=== PATIENT | female | born 1995 | race African-American/Black ===

== ENCOUNTER 2024-06-28 10:09 | Emergency (ER) | payer MEDICAID, SELFPAY ==
--- OUTSIDE RECORDS SUMMARY | 2024-06-28 10:11 | XMS_ITS | Encounter Summary ---
Author Organization [employer] Address [address] [place] [id number] Care Team Providers Care Cheese Blender Name Role Phone No Primary/Referring, Phy Primary Care Provider Unavailable Reason for Visit * Auth/Cert (Routine) Specialty Diagnoses / Procedures Referred By Contac t Referred To Contact Diagnoses Abdominal pain, left lower quadrant Hypertension, unspecified type (HRC) Preeclampsia in period Abdominal pain, left lower quadrant Hypertension, unspecified type (HRC) Preeclampsia in period Referral ID Status Reason Start Date Expiration Date Visits Re quested Visits Authorized [id number] 1 1 Encounter Details Date Type Department Care Team (Late st Contact Info) Description 05/18/2024 4:30 PM MARKETING SALES MANAGER Ancillary Procedure [address] [id number] Social History Tobacco Use Types Packs/Day Years Used Date Smoking Tobacco: Never Smokeless Tobacco: Never Alcohol Use Standard Drinks/Week Comments Not Currently 0 (1 standard drink = 0.6 oz pur e alcohol) [facility] Utilities Answer Date Recorded In the past 12 months has [facility] [employer], gas, oil, or water [employer] threatened to shut off services in your home? No 05/19/2024 Humiliation, Afraid, Rape, and Kick questionnair e Answer Date Recorded Within the last year, have y ou been afraid of your partner or ex-partner? No 05/18/2024 Within the last year, have y ou been humiliated or emotionally abused in other ways by your partner or ex-partner? No Within the last year, have y ou been kicked, hit, slapped, or otherwise physically hurt by your partner or ex-partner? No 05/18/2024 Within the last year, have y ou been raped or forced to have any kind of sexual activity by your partner or ex-partner? No 05/18/2024 Hunger Vital Sign Answer Date Recorded Within the past 12 months, y ou worried that your food would run out before you got the money to buy more. Never true 05/19/19 25 Within the past 12 months, t he food you bought just didn't last and you didn't have money to get more. Never true 05/19/2024 PRAPARE - Transportation Answer Date Re corded In the past 12 months, has l ack of transportation kept you from medical appointments or from getting medications? No 06/2024 In the past 12 months, has l ack of transportation kept you from meetings, work, or from getting things needed for daily living? No 05/19/2024 Housing Stability Vital Sign Answer Ezekiel e Recorded In the last 12 months, was t here a time when you were not able to pay the mortgage or rent on time? No 05/19/2024 Number of Times Moved in the Last Year Not on fi le 05/19/2024 At any time in the past 12 m [facility], were you homeless or living in a group home (including now)? No 05/19/2024 Depression Answer Date Recor ded Last EPDS Total Score 6 10/02/2023 Last EPDS Self Harm Result 0-->never 10/01 Sex and Gender Information Value Date Recorded Sex Assigned at Not on file Gender Identity Not on file Sexual Orientation Not on file documented as of this encounter Plan of Treatment Scheduled Procedures Name Priority Associated Diagnoses Date/Ti me LAPAROSCOPIC SALPINGECTOMY Sterilization consult documented as of this encounter Procedures Procedure Name Priority Date/Time Associated Diagnosis Comments CT ABD PELVIS WO IV CONT STAT 05/18/2024 4:39 PM MARKETING SALES MANAGER documented in this encounter Results * CT Abd Pelvis WO IV Cont (05/18/2024 4:39 PM MARKETING SALES MANAGER) Anatomical Region Laterality Modality Abdomen, Pelvis Computed Tomogra phy 05/18/2024 4:39 PM MARKETING SALES MANAGER Narrative 05/18/2024 6:28 PM MARKETING SALES MANAGER EXAM: CT ABD PELVIS WO IV CONT LOCATION: [facility] DATE: 05/18/2024 INDICATION: Left lower quadrant abdominal pain, . COMPARISON: None. TECHNIQUE: Helical CT scan of the abdomen and pelvis was performed without IV contrast. Multiplanar reformats were obtained. Dose reduction techniques were used. CONTRAST: None. FINDINGS: LOWER CHEST: Normal. HEPATOBILIARY: Normal. PANCREAS: Normal. SPLEEN: Normal. ADRENAL GLANDS: Normal. KIDNEYS/BLADDER: Ptosis of the right kidney with no urinary calculi or hydronephrosis. BOWEL: Normal. LYMPH NODES: Normal. VASCULATURE: Normal. PELVIC ORGANS: Enlarged uterus with focal hyperdensity in the lower endometrial canal compatible with blood products. MUSCULOSKELETAL: Small focal region of eventration ventral abdominal wall at the umbilicus containing small bowel. Nothing for obstruction. IMPRESSION: 1. Enlarged uterus with small amount of acute blood products in the lower endometrial canal near the cervix. No extrauterine blood in the pelvis. 2. Low lying right kidney. No urinary calculi or hydronephrosis. 3. Focal eventration ventral abdominal wall at the umbilicus containing small bowel loops but nothing for obstruction. Procedure Note Torrey Musa MD - 05/18/2024 EXAM: CT ABD PELVIS WO IV CONT LOCATION: [facility] DATE: 05/18/2024 INDICATION: Left lower quadrant abdominal pain, . COMPARISON: None. TECHNIQUE: Helical CT scan of the abdomen and pelvis was performed withoutIV contrast. Multiplanar reformats were obtained. Dose reductiontechniques were used. CONTRAST: None. FINDINGS: LOWER CHEST: Normal. HEPATOBILIARY: Normal. PANCREAS: Normal. SPLEEN: Normal. ADRENAL GLANDS: Normal. KIDNEYS/BLADDER: Ptosis of the right kidney with no urinary calculi orhydronephrosis. BOWEL: Normal. LYMPH NODES: Normal. VASCULATURE: Normal. PELVIC ORGANS: Enlarged uterus with focal hyperdensity in thelower endometrial canal compatible with blood products. MUSCULOSKELETAL: Small focal region of eventration ventral abdominal wallat the umbilicus containing small bowel. Nothing for obstruction. IMPRESSION: 1. Enlarged uterus with small amount of acute blood productsin the lower endometrial canal near the cervix. No extrauterine blood inthe pelvis. 2. Low lying right kidney. No urinary calculi or hydronephrosis. 3. Focal eventration ventral abdominal wall at the umbilicus containingsmall bowel loops but nothing for obstruction. Sunita Serra PA-C RAD CT documented in this encounter Visit Diagnoses Not on filedocumented in this encounter Care Teams Cheese Blender Relationship Specialty Start Date End Date No Primary/Referring, Phy PCP - General 06/29/23 documented as of this encounter
--- OUTSIDE RECORDS SUMMARY | 2024-06-28 10:11 | XMS_ITS | Encounter Summary ---
Author Organization [facility] Address [address] [place] [address] Care Team Providers Care Web Application Tester Name Role Phone No Primary/Referring, Phy Primary Care Provider Unavailable Reason for Visit * Reason Comments Appointment Encounter Details Date Type Department Care Team ([facility] st Contact Info) Description 06/17/2024 Telephone Obstetrics & Gynecology at [address] [id number] Nova Griffiths MD [address] [place] [id number] Appointment Social History Tobacco Use Types Packs/Day Years Used Date Smoking Tobacco: Never Smokeless Tobacco: Never Alcohol Use Standard Drinks/Week Comments Not Currently 0 (1 standard drink = 0.6 oz pur e alcohol) [facility] Utilities Answer Date Recorded In the past 12 months has [facility] [employer], gas, oil, or water [employer] threatened to shut off services in your [...] any time in the past 12 m [facility], were you homeless or living in a long-term (including now)? No 05/19/2024 Depression Answer Date Recor ded Last EPDS Total Score 6 06/21/2024 Last EPDS Self Harm Result Not on file 06/21 Sex and Gender Information Value Date Recorded Sex Assigned at Not on file Gender Identity Not on file Sexual Orientation Not on file documented as of this encounter Nursing Notes * Janae Hawkins - 06/21/2024 10:41 AM CST Unable to reach pt. OPS sent. TROTYPER APPRENTICE * Janae Hawkins - 06/17/2024 11:29 AM CST Images from the original note were not included. Message left for patient to return my call. TROTYPER APPRENTICE documented in this encounter Plan of Treatment Scheduled Procedures Name Priority Associated Diagnoses Date/Ti me LAPAROSCOPIC SALPINGECTOMY Sterilization consult documented as of this encounter Visit Diagnoses Not on filedocumented in this encounter Care Teams Web Application Tester Relationship Specialty Start Date End Date No Primary/Referring, Phy PCP - General 06/29/23 documented as of this encounter
--- OUTSIDE RECORDS SUMMARY | 2024-06-28 10:11 | XMS_ITS | Clinical Summary ---
[facility] Address [address] [place] [address] Care Team Providers Care Supervisor [employer] Name Role Phone No Primary/Referring, Phy Primary Care Provider Unavailable Source Comments You are receiving this document as you are listed as the primary care provider,follow-up provider, or the patient has been referred to you for consultation.This is in compliance with the Medicare and[facility] EHR Incentive Program,which states Providers who transition their patient to another setting of careor provider of care or refers their patient to another provider of care shouldprovide summary care record for each transition of care or referral. [facility] Active Allergy Reactions Criticality Noted Date Comments Latex Rash 07/28/2023 Medications Medication Sig Dispensed Refills Start Date End Date Status MV & Min w/FA-DHA ( GUMMIES OR) Active ferrous sulfate 325 (65 Fe) MG tablet Take 1 Tablet (325 mg) by mouth every other day. Do not take at the same time as taking vitamin. 60 Tablet 1 01/25/2024 Active hydrOXYzine HCl (ATARAX) 25 MG tablet Take 1 Tablet (25 mg) by mouth three times a day as needed for Itching, Anxiety, Pain or sleep. 60 Tablet 04/23/2024 Active sennosides-docusate sodium (SENOKOT S) 8.6-50 MG per tablet Take 1 Tablet by mouth daily. 100 Tablet 05/13/2024 Active acetaminophen (TYLENOL) 325 MG tablet Take 2 Tablets (650 mg) by mouth every 6 hours as needed for Pain. Maximum daily dose of 4000mg acetaminophen. 40 Tablet 05/13/2024 Active ibuprofen (MOTRIN) 600 MG tablet Take 1 Tablet (600 mg) by mouth every 6 hours as needed for Pain. 40 Tablet 05/13/2024 Active hydroCHLOROthiazide (ORETIC) 25 MG tablet Take 1 Tablet (25 mg) by mouth daily for 6 days. 6 Tablet 05/21/2024 Active NIFEdipine XL (PROCARDIA XL) 30 MG 24 hour release tablet Take 2 Tablets (60 mg) by mouth daily for 60 days. 120 Tablet 05/21/2024 07/20/2024 Active Active Problems Problem Noted Date Diagnosed Date Pre-eclampsia, 05/19/2024 Gestational hypertension wit hout significant proteinuria, 05/18/2024 Sterilization consult 05/13/2024 , delivered 05/12/2024 Normal labor 05/11/2024 Encounter for triage in patient 024 growth restriction antepartum 05/01/2024 Pelvic pain in 05/01/2024 Gastroenteritis 04/23/2024 uterine contractions 04/23/2024 Poor growth affecting management of mother in third trimester 04/23/2024 Anemia 04/23/2024 Back pain affecting in third trimester 04/15/2024 Yeast vaginitis 01/25/2024 Supervision of other normal , antepartu m 01/21/2024 Increased nuchal translucency space on ult rasound 01/21/2024 History of gestational diabetes 01/21/2024 History of 01/21/2024 Cervical cancer screening 11/27/2023 Overview (11/30/2023): From visit on 10/02/23: History of abnormal pap tests? No. 2023 ASCUS, HPV High Risk Other Than 16/18 28 y.o. Plan: Per Dr Pascual: Recommend pap LAURA is 05/18/24 so at PP visit would be ideal. Iron deficiency anemia 10/02/2023 Encounters Date Type Department Care Team Description 06/17/2024 Telephone Obstetrics & Gynecology at [facility] [id number] [place] [phone] Nova Griffiths MD Appointment 06/09/2024 Telephone [facility] Obstetrics and Gynecology [address] [place] [phone] Summer Cota LSW Follow-up 05/23/2024 [facility] OB Ultrasound [address] [place] [address] Mychart, Generic Provider 05/23/2024 Telephone [facility] [id number] [place] [phone] Nova Griffiths MD Surgery Scheduling 05/18/2024 4:30 PM PUBLIC HEALTH CLINICAL NURSE SPECIALIST Ancillary Procedure [facility] [address] [place] [address] 05/18/2024 4:13 PM PUBLIC HEALTH CLINICAL NURSE SPECIALIST - 05/21/2024 2:32 PM PUBLIC HEALTH CLINICAL NURSE SPECIALIST Hospital Encounter [facility] [address] [place] [phone] Babita Jarquin MD Schick, Alexandra L, MD Gamache, Jeferson Gerber MD Preeclampsia in period (Primary Dx); Abdominal pain, left lower quadrant; Hypertension, unspecified type (HRC) Discharge Disposition: Home 05/13/2024 Prep for Surgery [facility]OLOGY IP SERVICE [address] [place] [phone] Justa Jara MD Sterilization consult (Primary Dx) 05/11/2024 6:05 AM PUBLIC HEALTH CLINICAL NURSE SPECIALIST - 05/13/2024 2:30 PM PUBLIC HEALTH CLINICAL NURSE SPECIALIST Hospital Encounter [facility] [address] [place] [phone] Nova Griffiths MD , delivered (Primary Dx) Discharge Disposition: Home 05/09/2024 Telephone [facility] Obstetrics and Gynecology [address] [place] [phone] Nadine Griffiths, DIGITAL PROJECT MANAGER, CNM Scheduled Induction 05/06/2024 11:33 PM PUBLIC HEALTH CLINICAL NURSE SPECIALIST - 05/07/2024 1:38 AM PUBLIC HEALTH CLINICAL NURSE SPECIALIST Hospital Encounter [facility] OB Triage [address] [place] [phone] Renita Aranda MD Discharge Disposition: Home 04/30/2024 8:55 PM PUBLIC HEALTH CLINICAL NURSE SPECIALIST - 05/01/2024 12:01 AM PUBLIC HEALTH CLINICAL NURSE SPECIALIST Hospital Encounter [facility] OB Triage [address] [place] [phone] Daniella Gifford MD Back pain affecting in third trimester (Primary Dx) Discharge Disposition: Home 04/29/2024 Nurse Triage [facility] [address] [place], [place] [address] [address] Unassigned, Provider PELVIC PAIN; Concerns 04/22/2024 9:57 PM PUBLIC HEALTH CLINICAL NURSE SPECIALIST - 04/23/2024 2:51 AM PUBLIC HEALTH CLINICAL NURSE SPECIALIST Hospital Encounter [facility] OB Triage [address] [place] [address] Renita Aranda MD Das, Kamalini, MD Discharge Disposition: Home 04/15/2024 12:36 PM PUBLIC HEALTH CLINICAL NURSE SPECIALIST - 04/15/2024 4:25 PM PUBLIC HEALTH CLINICAL NURSE SPECIALIST Hospital Encounter [facility] OB Triage [address] [place] [address] Leticia Aguilera MD Back pain in (Primary Dx) Discharge Disposition: Home 04/13/2024 Telephone [facility] Obstetrics and Gynecology [address] [place] [phone] Summer Cota LSW [facility] Attempted Call 04/08/2024 1:30 PM PUBLIC HEALTH CLINICAL NURSE SPECIALIST Lab Visit [facility] [address] [place] [phone] Supervision of high risk in third trimester 04/08/2024 11:20 AM PUBLIC HEALTH CLINICAL NURSE SPECIALIST Routine [facility] Obstetrics and Gynecology [address] [place] [phone] Nadine Griffiths APRN, CNM SUBSEQUENT VISIT 04/08/2024 10:45 AM PUBLIC HEALTH CLINICAL NURSE SPECIALIST Routine [facility] Maternal Medicine [address] [place] [phone] Nurse, Juancho Calderon 3 NST,(NON STRESS TEST) 04/08/2024 10:30 AM PUBLIC HEALTH CLINICAL NURSE SPECIALIST Office Visit [facility] Maternal Medicine [address] [place] [phone] Leticia Zuniga MD affected by growth restriction (Primary Dx); Increased nuchal translucency space on ultrasound 04/08/2024 10:00 AM PUBLIC HEALTH CLINICAL NURSE SPECIALIST Ancillary Procedure [facility] [address] [place] [address] Leida Garrido MD growth restriction antepartum 04/01/2024 11:30 AM PUBLIC HEALTH CLINICAL NURSE SPECIALIST Routine [facility] Maternal Medicine [address] [place] [address] Nurse, Juancho [facility] 2 04/01/2024 11:15 AM PUBLIC HEALTH CLINICAL NURSE SPECIALIST Office Visit [facility] Maternal Medicine [address] [place] [address] Beatriz Bravo MD affected by growth restriction (Primary Dx) 04/01/2024 11:00 AM PUBLIC HEALTH CLINICAL NURSE SPECIALIST Ancillary Procedure [facility] Maternal Medicine [address] [place] [address] Leida Garrido MD growth restriction antepartum from Last 3 Months Social History Tobacco Use Types Packs/Day Years Used Date Smoking Tobacco: Never Smokeless Tobacco: Never Tobacco Cessation:Counseling Given: Not Answered Alcohol Use Standard Drinks/Week Comments Not Currently 0 (1 standard drink = 0.6 oz pur e alcohol) [facility] Topicmarksities Answer Date Recorded In the past 12 months has [employer], gas, oil, or water [employer] threatened to shut off services in your [...] any time in the past 12 m [facility], were you homeless or living in a penitentiary (including now)? No 05/19/2024 Depression Answer Date Recor ded Last EPDS Total Score 6 06/21/2024 Last EPDS Self Harm Result Not on file 06/21 Sex and Gender Information Value Date Recorded Sex Assigned at Not on file Gender Identity Not on file Sexual Orientation Not on file Last Filed Vital Signs Vital Sign Reading Time Taken Comments Blood Pressure 112/80 05/21/2024 10:50 AM PUBLIC HEALTH CLINICAL NURSE SPECIALIST Pulse 104 05/21/2024 10:50 AM PUBLIC HEALTH CLINICAL NURSE SPECIALIST Temperature 37.4 C (99.3 F) 05/21/2024 8:15 AM PUBLIC HEALTH CLINICAL NURSE SPECIALIST Respiratory Rate 16 05/21/2024 8:15 AM PUBLIC HEALTH CLINICAL NURSE SPECIALIST Oxygen Saturation 100% 05/21/2024 8:15 AM PUBLIC HEALTH CLINICAL NURSE SPECIALIST Inhaled Oxygen Concentration - - Weight 53.3 kg (117 lb 6.4 oz) 05/18/2024 8:33 P M PUBLIC HEALTH CLINICAL NURSE SPECIALIST Height 149.9 cm (4' 11) 05/18/2024 11:34 PM PUBLIC HEALTH CLINICAL NURSE SPECIALIST Body Mass Index 23.71 05/18/2024 8:33 PM PUBLIC HEALTH CLINICAL NURSE SPECIALIST Plan of Treatment Scheduled Procedures Name Priority Associated Diagnoses Date/Ti me LAPAROSCOPIC SALPINGECTOMY Sterilization consult Health Maintenance Due Date Last Done Comments Adult Preventive Visit 2012 DTaP/Tdap/Td (1 - Tdap) 2013 HepB (1) 2013 COVID-19 Vaccine (2023-2 5 season) 2024 Influenza (#1) 2024 Cervical Cancer Screening 10/01/2024 10/02/2023 Zoster/Shingles (1 of 2) 2044 HIV Screening (Preventive Services) Completed 10/02/2023 Hep C Screening (Preventive Services) Completed 10/02/2023 HPV Vaccine Aged Out No longer eligi ble based on patient's age to complete this topic HepA Aged Out No longer eligi ble based on patient's age to complete this topic Hib Aged Out No longer eligi ble based on patient's age to complete this topic IPV (Polio) Aged Out No longer eligi ble based on patient's age to complete this topic MCV4 Aged Out No longer eligi ble based on patient's age to complete this topic Pneumococcal Aged Out No longer eligi ble based on patient's age to complete this topic Procedures Procedure Name Priority Date/Time Associated Diagnosis Comments GLUCOSE, WHOLE BLOOD POCT Routine 05/21/2024 5:15 AM PUBLIC HEALTH CLINICAL NURSE SPECIALIST MAGNESIUM STAT 05/19/2024 1:18 PM PUBLIC HEALTH CLINICAL NURSE [facility]IST CT ABD PELVIS WO IV CONT STAT 05/18/2024 4:39 PM PUBLIC HEALTH CLINICAL NURSE SPECIALIST LIVER PANEL(HEPATIC FUNCTION PANEL) Add-On 05/18/2024 1:49 PM PUBLIC HEALTH CLINICAL NURSE SPECIALIST BASIC METABOLIC PANEL STAT 05/18/2024 1:49 PM PUBLIC HEALTH CLINICAL NURSE SPECIALIST COMPLETE BLOOD COUNT-NO DIFF STAT 05/18/2024 1:49 PM PUBLIC HEALTH CLINICAL NURSE SPECIALIST TP/CREA RATIO, URINE Add-On 05/18/2024 1:37 PM PUBLIC HEALTH CLINICAL NURSE SPECIALIST UA CONDITIONAL UC STAT 05/18/2024 1:3 7 PM PUBLIC HEALTH CLINICAL NURSE SPECIALIST TRANSFUSE RED BLOOD CELL Routine 05/12/2024 12:14 PM PUBLIC HEALTH CLINICAL NURSE SPECIALIST HEMOGLOBIN, BLOOD Routine 05/12/2024 7:4 3 AM PUBLIC HEALTH CLINICAL NURSE SPECIALIST GLUCOSE, WHOLE BLOOD POCT Routine 05/11/2024 9:31 AM PUBLIC HEALTH CLINICAL NURSE SPECIALIST PREP RBC LR Routine 05/11/2024 9:18 AM PUBLIC HEALTH CLINICAL NURSE SPECIALIST SYPHILIS PANEL (WITH REFLEX) STAT 05/11/2024 6:42 AM PUBLIC HEALTH CLINICAL NURSE SPECIALIST SYPHILIS PANEL (WITH REFLEX) STAT 05/11/2024 6:42 AM PUBLIC HEALTH CLINICAL NURSE SPECIALIST ANTIBODY SCREEN STAT 05/11/2024 6:42 AM PUBLIC HEALTH CLINICAL NURSE SPECIALIST BLOOD TYPE STAT 05/11/2024 6:42 AM PUBLIC HEALTH CLINICAL NURSE SPECIALIST COMPLETE BLOOD COUNT-NO DIFF STAT 05/11/2024 6:42 AM PUBLIC HEALTH CLINICAL NURSE SPECIALIST TYPE AND SCREEN STAT 05/11/2024 6:42 AM PUBLIC HEALTH CLINICAL NURSE SPECIALIST POC US OB 2ND/3RD TRIMESTER Routine 05/11/2024 6:25 AM PUBLIC HEALTH CLINICAL NURSE SPECIALIST UA CONDITIONAL UC Routine 04/30/2024 11: 38 PM PUBLIC HEALTH CLINICAL NURSE SPECIALIST CHLAMYDIA & GC (14 YEARS & OLDER) Routine 04/22/2024 11:51 PM PUBLIC HEALTH CLINICAL NURSE SPECIALIST VAGINITIS PANEL STAT 04/22/2024 11:51 PM PUBLIC HEALTH CLINICAL NURSE SPECIALIST GROUP B STREP SCREEN (OB PTS) STAT 04/22/2024 11:21 PM PUBLIC HEALTH CLINICAL NURSE SPECIALIST UA CONDITIONAL UC STAT 04/22/2024 11: 21 PM PUBLIC HEALTH CLINICAL NURSE SPECIALIST UA CONDITIONAL UC STAT 04/15/2024 1:0 4 PM PUBLIC HEALTH CLINICAL NURSE SPECIALIST HEPATITIS B CORE,AB Routine 04/08/2024 1 1:56 AM PUBLIC HEALTH CLINICAL NURSE SPECIALIST Supervision of high risk in third trimester HEPATITIS B SURFACE ANTIBODY Routine 04/08/2024 11:56 AM PUBLIC HEALTH CLINICAL NURSE SPECIALIST Supervision of high risk in third trimester HBSAG (HEPATITIS B SURFACE AG) Routine 04/08/2024 11:56 AM PUBLIC HEALTH CLINICAL NURSE SPECIALIST Supervision of high risk in third trimester SYPHILIS PANEL (WITH REFLEX) Routine 04/08/2024 11:56 AM PUBLIC HEALTH CLINICAL NURSE SPECIALIST Supervision of high risk in third trimester RBC AND PLATELET MORPHOLOGY Routine 04/08/2024 11:56 AM PUBLIC HEALTH CLINICAL NURSE SPECIALIST Supervision of high risk in third trimester SYPHILIS PANEL (WITH REFLEX) Routine 04/08/2024 11:56 AM PUBLIC HEALTH CLINICAL NURSE SPECIALIST Supervision of high risk in third trimester PLATELETS Routine 04/08/2024 11:56 AM PUBLIC HEALTH CLINICAL NURSE SPECIALIST Supervision of high risk in third trimester HEMOGLOBIN, BLOOD Routine 04/08/2024 11: 56 AM PUBLIC HEALTH CLINICAL NURSE SPECIALIST Supervision of high risk in third trimester GLUCOSE Routine 04/08/2024 11:56 AM PUBLIC HEALTH CLINICAL NURSE SPECIALIST Supervision of high risk in third trimester HGB A1C Routine 04/08/2024 11:56 AM PUBLIC HEALTH CLINICAL NURSE SPECIALIST Supervision of high risk in third trimester [facility] US OB FOLLOW-UP GROWTH Routine 04/08/2024 10:35 AM PUBLIC HEALTH CLINICAL NURSE SPECIALIST growth restriction antepartum [facility] US OB BPP Routine 04/01/2024 11:38 AM PUBLIC HEALTH CLINICAL NURSE SPECIALIST growth restriction antepartum PAP TEST Routine 10/02/2023 11:14 AM CDT Screening for malignant neoplasm of cervix HIV 1/2 AG/AB 4TH GEN Routine 10/02/2023 10:29 AM CDT Grand multiparity with current in first trimester HEPATITIS C ANTIBODY, WITH REFLEX Routine 10/02/2023 10:29 AM CDT Grand multiparity with current in first trimester from Last 3 Months or Most Recently Relevant to Health Maintenance Results * Glucose, Whole Blood POCT (05/21/2024 5:15 AM PUBLIC HEALTH CLINICAL NURSE SPECIALIST) Only the most recent of2 resultswithin the time period is included. Glucose, Whole Blood 88 70 - 180 mg/dL 05/21/2024 5:17 AM PUBLIC HEALTH CLINICAL NURSE SPECIALIST [facility] Performing Location RCLab SE2 05/21/2024 5:17 AM PUBLIC HEALTH CLINICAL NURSE SPECIALIST [facility] Blood 05/21/2024 5:15 AM PUBLIC HEALTH CLINICAL NURSE SPECIALIST 05/21/2024 5:17 AM PUBLIC HEALTH CLINICAL NURSE SPECIALIST Jeferson Casiano MD LAB_1 Performing Organization Address [facility] Co de Phone Number [address] * (ABNORMAL) Magnesium (05/19/2024 1:18 PM PUBLIC HEALTH CLINICAL NURSE SPECIALIST) Magnesium 7.4(HH) 1.6 - 2.6 mg/dL 05/19/2024 1:48 PM PUBLIC HEALTH CLINICAL NURSE SPECIALIST [facility] Blood Venipuncture / Unknown 05/19/2024 1:18 PM PUBLIC HEALTH CLINICAL NURSE SPECIALIST 05/19/2024 1:22 PM PUBLIC HEALTH CLINICAL NURSE SPECIALIST Jeferson Casiano MD LAB_1 Performing Organization Address [facility] de Phone Number [address] * CT Abd Pelvis WO IV Cont (05/18/2024 4:39 PM PUBLIC HEALTH CLINICAL NURSE SPECIALIST) Anatomical Region Laterality Modality Abdomen, Pelvis Computed Tomogra phy 05/18/2024 4:39 PM PUBLIC HEALTH CLINICAL NURSE SPECIALIST Narrative 05/18/2024 6:28 PM PUBLIC HEALTH CLINICAL NURSE SPECIALIST EXAM: CT ABD PELVIS WO IV CONT LOCATION: [facility] DATE: 05/18/2024 INDICATION: Left lower quadrant [...] CT ABD PELVIS WO IV CONT LOCATION: [facility] DATE: 05/18/2024 INDICATION: Left lower quadrant [...] for obstruction. Sunita Serra PA-C RAD CT * (ABNORMAL) Liver Panel(Hepatic Function Panel) (05/18/2024 1:49 PM PUBLIC HEALTH CLINICAL NURSE SPECIALIST) Alkaline Phosphatase 114 40 - 150 U/L 05/18/2024 5:22 PM PUBLIC HEALTH CLINICAL NURSE SPECIALIST [facility] Bilirubin, Total 0.5 0.2 - 1.2 mg/dL 05/18/2024 5:22 PM PUBLIC HEALTH CLINICAL NURSE SPECIALIST [facility] Bilirubin, Direct 0.2 0.0 - 0.5 mg/dL 05/18/2024 5:22 PM PUBLIC HEALTH CLINICAL NURSE SPECIALIST [facility] AST (SGOT) 16 10 - 40 U/L 05/18/2024 5:22 PM [facility] ALT (SGPT) 25 <=55 U/L 05/18/2024 5:22 PM [facility] Protein, Total 8.0 6.4 - 8.3 g/dL 05/18/2024 5:22 PM [facility] Albumin 3.0(L) 3.5 - 5.0 g/dL 05/18/2024 5:22 PM [facility] Blood Venipuncture / Unknown 05/18/2024 1:49 PM PUBLIC HEALTH CLINICAL NURSE SPECIALIST 05/18/2024 1:54 PM PUBLIC HEALTH CLINICAL NURSE SPECIALIST Ana Laura Sutton MD LAB_[address] [address], [facility] * Basic Metabolic Panel (05/18/2024 1:49 PM PUBLIC HEALTH CLINICAL NURSE SPECIALIST) Sodium 140 136 - 145 mmol/L 05/18/2024 2:18 PM [facility] Potassium 3.5 3.5 - 5.1 mmol/L 05/18/2024 2:18 PM [facility] Chloride 106 98 - 109 mmol/L 05/18/2024 2:18 PM [facility] CO2 26 20 - 29 mmol/L 05/18/2024 2:18 PM [facility] Anion Gap 8 6 - 16 mmol/L 05/18/2024 2:18 PM [facility] Calcium 8.7 8.4 - 10.4 mg/dL 05/18/2024 2:18 PM [facility] BUN 11 7 - 26 mg/dL 05/18/2024 2:18 PM [facility] Creatinine 0.63 0.55 - 1.02 mg/dL 05/18/2024 2:18 PM [facility] Glucose 78 70 - 100 mg/dL 05/18/2024 2:18 PM [facility] Comment:The given reference range is for the fasting state. Non-fasting reference range for glucose is 70 - 180 mg/dL. GFR, Estimated >60 >60 mL/min/1.7 3m2 05/18/2024 2:18 PM [facility] Blood Venipuncture / Unknown 05/18/2024 1:49 PM PUBLIC HEALTH CLINICAL NURSE SPECIALIST 05/18/2024 1:54 PM PUBLIC HEALTH CLINICAL NURSE SPECIALIST Babita Jarquin MD LAB_1 Performing Organization Address City/[facility]/ZIP Co de Phone Number [address] * (ABNORMAL) Complete Blood Count-No Diff (05/18/2024 1:49 PM PUBLIC HEALTH CLINICAL NURSE SPECIALIST) Only the most recent of2 resultswithin the time period is included. WBC 9.5 3.5 - 10.5 x10(9)/L 05/18/2024 1:59 PM [facility] RBC 4.78 3.90 - 5.03 x10(12)/L 05/18/2024 1:59 PM [facility] Hemoglobin 10.3(L) 12.0 - 15.5 g/dL 05/18/2024 1:59 PM [facility] HCT 34.1(L) 34.9 - 44.5 % 05/18/2024 1:59 PM [facility] MCV 71.3(L) 80.0 - 100.0 fL 05/18/2024 1:59 PM [facility] MCH 21.5(L) 27.6 - 33.3 pg 05/18/2024 1:59 PM [facility] MCHC 30.2(L) 31.5 - 35.2 g/dL 05/18/2024 1:59 PM [facility] RDW 21.8(H) 11.9 - 15.5 % 05/18/2024 1:59 PM [facility] Platelets 232 150 - 450 x10(9)/L 05/18/2024 1:59 PM [facility] Automated NRBC 0 <=0 /100 WBC 05/18/2024 1:59 PM [facility] Blood Venipuncture / Unknown 05/18/2024 1:49 PM PUBLIC HEALTH CLINICAL NURSE SPECIALIST 05/18/2024 1:54 PM PUBLIC HEALTH CLINICAL NURSE SPECIALIST Babita Jarquin MD LAB_[address] * (ABNORMAL) UA Conditional UC: Clean Catch (05/18/2024 1:37 PM PUBLIC HEALTH CLINICAL NURSE SPECIALIST) Only the most recent of4 resultswithin the time period is included. Urine Culture Comment 05/18/2024 2:26 PM [facility] Urine Color Yellow 05/18/2024 2:26 PM [facility] Urine Clarity Clear Clear 05/18/2024 2:26 PM [facility] Specific Clarence, Urine 1.028 <1.030 05/18/2024 2:26 PM [facility] PH Urine 5.5 5.0 - 8.0 05/18/2024 2:26 PM [facility] Protein, Urine Qual (mg/dL) 10 Negative, 10 , 20 05/18/2024 2:26 PM [facility] Glucose Urine Qual (mg/dL) Normal (Negative) Normal (Negative), 30 , 50 05/18/2024 2:26 PM [facility] Ketones, Urine (mg/dL) Negative Negative, Trace 05/18/2024 2:26 PM [facility] Urobilinogen, Urine (EU/dL) Normal (Negative) Normal (Negative) 05/18/2024 2:26 PM [facility] Bilirubin Urine (mg/dL) Negative Negative 05/18/2024 2:26 PM [facility] Blood, Urine (mg/dL) 0.50 (Moderate)(A) Negative, 0.03 (Trace) 05/18/2024 2:26 PM [facility] Nitrite Urine Negative Negative 05/18/2024 2:26 PM [facility] Leukocyte Esterase, Urine (Marcos/uL) Negative Negative, 25 (Trace) 05/18/2024 2:26 PM [facility] Red Blood Cells 25(H) 0 - 3 /HPF 05/18/2024 2:26 PM [facility] White Blood Cells 5 0 - 5 /HPF 05/18/2024 2:26 PM [facility] Squamous Epithelial Cells Occasional None Seen, Occasional, Few /HPF 05/18/2024 2:26 PM [facility] Mucus Present(A) None Seen /HPF 05/18/2024 2:26 PM [facility] Source Clean Catch 05/18/2024 2:26 PM [facility] Urine URINE SPECIMEN COLLECTION, CLEAN CATCH / Unknown Non-blood Collection / Unknown 05/18/2024 1:37 PM PUBLIC HEALTH CLINICAL NURSE SPECIALIST 05/18/2024 1:41 PM PUBLIC HEALTH CLINICAL NURSE SPECIALIST [facility] - 05/18/2024 2:26 PM PUBLIC HEALTH CLINICAL NURSE SPECIALIST The qualitative interpretive guidance provided (e.g., small, moderate, large) is intended to aid in quantitative result interpretation. It is not itself an FDA-cleared test result. Babita Jarquin MD LAB_1 Performing Organization Address [facility] de Phone Number [address] * (ABNORMAL) TP/Crea Ratio, Urine (05/18/2024 1:37 PM PUBLIC HEALTH CLINICAL NURSE SPECIALIST) TP/Creat Ratio, Urine Random 0.08 0.00 - 0.20 05/18/2024 5:35 PM [facility] Total Protein, Urine, Random 16(H) 0 - 14 mg/dL 05/18/2024 5:35 PM [facility] Comment:The overall interpre tation for this test is normal (the ratio is within the reference interval). Individual test components may fall outside the reference interval but still give a normal overall test result. Creatinine, Urine, Random 208 >20 mg/dL mg/dL 05/18/2024 5:35 PM [facility] Urine URINE SPECIMEN COLLECTION, CLEAN CATCH / Unknown Non-blood Collection / Unknown 05/18/2024 1:37 PM PUBLIC HEALTH CLINICAL NURSE SPECIALIST 05/18/2024 1:41 PM PUBLIC HEALTH CLINICAL NURSE SPECIALIST [facility] - 05/18/2024 5:35 PM PUBLIC HEALTH CLINICAL NURSE SPECIALIST Low urine creatinine values coupled with low urine protein values can artifactually increase the urine protein/creatinine results. Correlate results of ratio with creatinine results. Ana Laura Sutton MD LAB_1 Performing Organization Address [facility] Co de Phone Number [address] * Transfuse Red Blood Cell (05/12/2024 2:09 PM PUBLIC HEALTH CLINICAL NURSE SPECIALIST) Danielle Montgomery DIGITAL PROJECT MANAGER, CNM ET NURSING BLO OD ADMIN * (ABNORMAL) Hemoglobin - day 1 (05/12/2024 7:43 AM PUBLIC HEALTH CLINICAL NURSE SPECIALIST) Only the most recent of2 resultswithin the time period is included. Hemoglobin 7.8(L) 12.0 - 15.5 g/dL 05/12/2024 7:58 AM PUBLIC HEALTH CLINICAL NURSE SPECIALIST [facility] Blood Venipuncture / Unknown 05/12/2024 7:43 AM PUBLIC HEALTH CLINICAL NURSE SPECIALIST 05/12/2024 7:51 AM PUBLIC HEALTH CLINICAL NURSE SPECIALIST Nova Griffiths MD LAB_1 Performing Organization Address [facility] Co de Phone Number [address] * Prep RBC: , 2 Units (05/11/2024 9:18 AM PUBLIC HEALTH CLINICAL NURSE SPECIALIST) BLOOD PRODUCT CODE [id number] [facility] BLOOD [facility] BLOOD UNIT NUMBER [id number] [facility] BLOOD [facility] CROSSMATCH INTERPRETATION Compatible [facility] BLOOD DISPENSE STATUS Transfused [facility] BLOOD [facility] Unit Expiration Date [facility] BLOOD [facility] UNIT BT BARCODE [address] [place] [address] BLOOD BANK PRODUCT VOL ML [address] [place] BLOOD B[facility] CODING SYSTEM ISBT [facility] BLOOD BANK PRODUCT RBC LR [facility]OD [facility] Blood 05/11/2024 9:18 AM PUBLIC HEALTH CLINICAL NURSE SPECIALIST Nova Griffiths MD LAB_BLOOD PRODUCTS Performing Organization Address City/[facility] Co de Phone Number [facility]LOOD [facility] [address] * Antibody Screen (05/11/2024 6:42 AM PUBLIC HEALTH CLINICAL NURSE SPECIALIST) Antibody Screen Interpretation Negative 05/11/2024 7:51 AM PUBLIC HEALTH CLINICAL NURSE SPECIALIST [facility]LOOD [facility] Blood Venipuncture / Unknown 05/11/2024 6:42 AM PUBLIC HEALTH CLINICAL NURSE SPECIALIST 05/11/2024 6:53 AM PUBLIC HEALTH CLINICAL NURSE SPECIALIST Nova Griffiths MD LAB_1 Performing Organization Address City/[facility] Co de Phone Number [facility]OD [facility] [address] [place] [address] * Blood Type (05/11/2024 6:42 AM PUBLIC HEALTH CLINICAL NURSE SPECIALIST) ABO B 05/11/2024 7:44 AM PUBLIC HEALTH CLINICAL NURSE SPECIALIST [facility] RH Positive 05/11/2024 7:44 AM PUBLIC HEALTH CLINICAL NURSE SPECIALIST [facility]LOOD [facility] Blood Venipuncture / Unknown 05/11/2024 6:42 AM PUBLIC HEALTH CLINICAL NURSE SPECIALIST 05/11/2024 6:53 AM PUBLIC HEALTH CLINICAL NURSE SPECIALIST Nova Griffiths MD LAB_1 [facility]LOOD [facility] [address] * Syphilis Panel, with Reflex (05/11/2024 6:42 AM PUBLIC HEALTH CLINICAL NURSE SPECIALIST) Only the most recent of2 resultswithin the time period is included. Treponema Screen Interpretation Non Reactive Non Reactive 05/11/2024 3:33 PM PUBLIC HEALTH CLINICAL NURSE SPECIALIST [facility] Syphilis Panel Comment Negative - No serological evidence of syphilis. 05/11/2024 3:33 PM PUBLIC HEALTH CLINICAL NURSE SPECIALIST [facility] Blood Venipuncture / Unknown 05/11/2024 6:42 AM PUBLIC HEALTH CLINICAL NURSE SPECIALIST 05/11/2024 6:53 AM PUBLIC HEALTH CLINICAL NURSE SPECIALIST Nova Griffiths MD LAB_1 Performing Organization Address [facility] Co de Phone Number [facility] [address] [place] [address] * Vaginitis Panel (04/22/2024 11:51 PM PUBLIC HEALTH CLINICAL NURSE SPECIALIST) Pathologist [facility] Bacterial Vaginosis Negative Negative 04/23/2024 1:07 AM PUBLIC HEALTH CLINICAL NURSE SPECIALIST [facility] Shae Species Not Detected Not Detected 04/23 1:07 AM PUBLIC HEALTH CLINICAL NURSE SPECIALIST [facility] Shae glabrata/krusei Not Detected Not Detected 04/23/2024 1:07 AM PUBLIC HEALTH CLINICAL NURSE SPECIALIST [facility] Trichomonas vaginalis Not Detected Not Detected 04/23/2024 1:07 AM PUBLIC HEALTH CLINICAL NURSE SPECIALIST [facility] Swab STD SPECIMEN FROM VAGINA / Unknown Non-blood Collection / Unknown 04/22/2024 11:51 PM PUBLIC HEALTH CLINICAL NURSE SPECIALIST 04/22/2024 11:54 PM PUBLIC HEALTH CLINICAL NURSE SPECIALIST [facility] - 04/23/2024 1:07 AM PUBLIC HEALTH CLINICAL NURSE SPECIALIST Test performed by Real-Time PCR Kailey Wall MD LAB_1 Performing Organization Address City/[facility]/ZIP Co de Phone Number [address] * Chlamydia & GC (14 Years and Older): Vagina (04/22/2024 11:51 PM PUBLIC HEALTH CLINICAL NURSE SPECIALIST) Chlamydia Trachomatis STD Not Detected Not Detected 04/23/2024 4:57 AM PUBLIC HEALTH CLINICAL NURSE SPECIALIST [facility] N. gonorrhoeae STD Not Detected Not Detected 04/23/2024 4:57 AM [facility] Swab STD SPECIMEN FROM VAGINA / Unknown Non-blood Collection / Unknown 04/22/2024 11:51 PM PUBLIC HEALTH CLINICAL NURSE SPECIALIST 04/22/2024 11:54 PM PUBLIC HEALTH CLINICAL NURSE SPECIALIST [facility] - 04/23/2024 4:57 AM PUBLIC HEALTH CLINICAL NURSE SPECIALIST Test performed by Real-Time PCR Kailey Wall MD LAB_1 Performing Organization Address [facility]/ZIP Co de Phone Number [address] * Group B Strep Screen (OB Pts) (04/22/2024 11:21 PM PUBLIC HEALTH CLINICAL NURSE SPECIALIST) Pathologist [facility] Group B Strep Screen No Group B Streptococcus Isolated 04/26/2024 9:56 AM [facility] Swab (Source Required) PERINEAL SWAB / Unknown Non-blood Collection / Unknown 04/22/2024 11:21 PM PUBLIC HEALTH CLINICAL NURSE SPECIALIST 04/22/2024 11:26 PM PUBLIC HEALTH CLINICAL NURSE SPECIALIST Kailey Wall MD LAB_1 Performing Organization Address [facility]/ZIP Co de Phone Number [address] * Morphology-RBC and Platelet (04/08/2024 11:56 AM PUBLIC HEALTH CLINICAL NURSE SPECIALIST) Pathologist [facility] RBC Morphology Reviewed 04/08/2024 12:24 PM PUBLIC HEALTH CLINICAL NURSE SPECIALIST [facility] Platelet Estimate Adequate Adequate 04/08/2024 12:24 PM PUBLIC HEALTH CLINICAL NURSE SPECIALIST [facility] Blood Venipuncture / Unknown 04/08/2024 11:56 AM PUBLIC HEALTH CLINICAL NURSE SPECIALIST 04/08/2024 11:56 AM PUBLIC HEALTH CLINICAL NURSE SPECIALIST Nadine Griffiths APRN, CNM LAB_1 Performing Organization Address City/[facility]/ZIP Co de Phone Number [facility] [address] [place] [phone], [facility] * Hepatitis B Surface Antibody (04/08/2024 11:56 AM PUBLIC HEALTH CLINICAL NURSE SPECIALIST) Hep B Surf Antibody Result 169.8 mIU/mL 04/08/2024 7:22 PM PUBLIC HEALTH CLINICAL NURSE SPECIALIST [facility] Hep B Surf Antibody Interpretation Positive (Reactive) Positive (Reactive) 04/08/2024 7:22 PM PUBLIC HEALTH CLINICAL NURSE SPECIALIST [facility] Comment:Individual is consid ered immune to HBV infection. Blood Venipuncture / Unknown 04/08/2024 11:56 AM PUBLIC HEALTH CLINICAL NURSE SPECIALIST 04/08/2024 11:56 AM PUBLIC HEALTH CLINICAL NURSE SPECIALIST Nadine Griffiths APRN, CNM LAB_1 Performing Organization Address City/[facility]/ZIP Co de Phone Number [facility] [address] [place] [address] * Platelets (04/08/2024 11:56 AM PUBLIC HEALTH CLINICAL NURSE SPECIALIST) Platelets 204 150 - 450 x10(9)/L 04/08/2024 12:24 PM PUBLIC HEALTH CLINICAL NURSE SPECIALIST [facility] Blood Venipuncture / Unknown 04/08/2024 11:56 AM PUBLIC HEALTH CLINICAL NURSE SPECIALIST 04/08/2024 11:56 AM PUBLIC HEALTH CLINICAL NURSE SPECIALIST Nadine Griffiths APRN, CNM LAB_1 Performing Organization Address City/[facility] Co de Phone Number [facility] [address] [place] [phone] * Hepatitis B Surface Antigen (04/08/2024 11:56 AM PUBLIC HEALTH CLINICAL NURSE SPECIALIST) Hepatitis B Surface Antigen Negative (Non Reactive) Negative (Non Reactive) 04/08/2024 7:22 PM PUBLIC HEALTH CLINICAL NURSE SPECIALIST [facility] Blood Venipuncture / Unknown 04/08/2024 11:56 AM PUBLIC HEALTH CLINICAL NURSE SPECIALIST 04/08/2024 11:56 AM PUBLIC HEALTH CLINICAL NURSE SPECIALIST Nadine Griffiths APRN, CNM LAB_1 Performing Organization Address City/[facility] Co de Phone Number [facility] [address] [place] [address] * Hepatitis B Core Antibody (04/08/2024 11:56 AM PUBLIC HEALTH CLINICAL NURSE SPECIALIST) Pathologist [facility] Hepatitis B Core Antibody Negative (Non Reactive) Negative (Non Reactive) 04/08/2024 7:22 PM [facility] Blood Venipuncture / Unknown 04/08/2024 11:56 AM PUBLIC HEALTH CLINICAL NURSE SPECIALIST 04/08/2024 11:56 AM PUBLIC HEALTH CLINICAL NURSE SPECIALIST Nadine Shahrzad Tunde ERNANDEZ CNM LAB_1 Performing Organization Address [facility] de Phone Number [facility] [address] * Hgb A1C (04/08/2024 11:56 AM PUBLIC HEALTH CLINICAL NURSE SPECIALIST) [facility] Hemoglobin A1C 5.6 <=5.6 % 04/08/2024 7:12 PM [facility] Estimated Average Glucose (Calc) 114 < 117 mg/dL 04/08/2024 7:12 PM [facility] Comment:Estimated average gl ucose (eAG) converts A1c into glucose units (mg/dL) and estimates average glucose over the past approximately 3 months. The eAG reference interval (<117 mg/dL) corresponds to an A1c of <5.7%. Blood Venipuncture / Unknown 04/08/2024 11:56 AM PUBLIC HEALTH CLINICAL NURSE SPECIALIST 04/08/2024 11:56 AM PUBLIC HEALTH CLINICAL NURSE SPECIALIST Nadine Griffiths APRN, CNM LAB_1 Performing Organization Address [facility] de Phone Number [facility] [address] * Glucose (04/08/2024 11:56 AM PUBLIC HEALTH CLINICAL NURSE SPECIALIST) [facility] Glucose 72 70 - 100 mg/dL 04/08/2024 6:35 PM [facility] Comment:The given reference range is for the fasting state. Non-fasting reference range for glucose is 70 - 180 mg/dL. Hours Fasting 0.0 8 - 12 Hours 04/08/2024 6:35 PM [facility] Blood Venipuncture / Unknown 04/08/2024 11:56 AM PUBLIC HEALTH CLINICAL NURSE SPECIALIST 04/08/2024 11:56 AM PUBLIC HEALTH CLINICAL NURSE SPECIALIST Nadine Griffiths APRN, CNM LAB_1 [facility] [address] * MFM US OB Follow-Up Growth (04/08/2024 10:35 AM PUBLIC HEALTH CLINICAL NURSE SPECIALIST) Anatomical Region Laterality Modality Pelvis Ultrasound Study GA Study Date Study LAURA Working LAURA (Source) Feta l Weight (Method) 31w5d 04/08/2024 06/05/2024 05/18/2024 (Las t Menstrual Period) 1863 g (Hadlock 1984 (BPD, HC, AC, [place]) )1948 g (Hadlock 1984 (AC, FL) )1894 g (Hadlock 1984 (BPD, AC, FL) )1860 g (Hadlock 1984 (HC, AC, FL) )2055 g (Hadlock 1983 (AC) )1847 g (Hadlock 1983 (HC, AC) )1811 g (Snell 1981 (BPD, AC) ) Result Name Value Comments GA by US Calc 222 days 222 FHR 142 bpm BPD 7.81 cm 220 OFD HC 28.37 cm 218 AC 28.05 cm 225 FL 6.18 cm 224 HL 4.59 cm CI FL/BPD .79 FL/AC .22 HC/AC 1.01 HrtC/TC Heart Circ Thoracic Circ UAR - PSV 32.6 cm/s UAR - S/D Ratio 2.11 UAR - RI .526 UAR - PI .797 MCA - PSV 53.3 cm/s MCA - S/D Ratio 9.44 MCA - PI 2.51 CPR Lateral Ventricle .48 cm CER Cisterna Magna Max Vertical Pocket AMIRA 20.2 cm AMIRA Q1 7.2 cm AMIRA Q2 6 cm AMIRA Q3 5 cm AMIRA Q4 2 cm Foot Tib Fib Radius Ulna Clav Scapula Mitral Valve Tricuspid Valve Pulmonary Valve Aortic Valve Impressions 04/08/2024 11:19 AM PUBLIC HEALTH CLINICAL NURSE SPECIALIST : Intrauterine at 34w2d Presentation is cephalic EFW 1863 grams, 4 percentile AC at 6 percentile Growth parameters and estimated weight are consistent with ongoing growth restriction (FGR), but with appropriate interval growth Normal amniotic fluid The umbilical artery Doppler is normal BPP: 02/24 with reactive NST OFFICE VISIT: Indications for [facility] ultrasound and office visit are as noted above. Reviewed record, hasn't had visit since last growth ultrasound but is scheduled today after MFM visit. The results of the ultrasound were communicated to the patient today. Reviewed ongoing concern for growth restriction, but appropriate interval growth and reassuring testing. Given findings reviewed recommendation for ongoing surveillance as below with recommended delivery at 39w. Reviewed rationale for this delivery timing, earlier delivery may be recommended for suboptimal interval growth, abnormal Dopplers, oligohydramnios or nonreassuring testing. Will smart final growth ultrasound at 37-38 weeks if remains undelivered (history of late /early term labor), understands that if EFW <3%ile earlier delivery may be recommended. Typical recommendation is for vaginal delivery, with for routine obstetric indications; there is an increased risk of intolerance of labor requiring associated with growth restriction. Karyn has history of , recommend discussion of route of delivery with primary OB team. RECOMMENDATIONS: -Continue routine care with primary OB clinic -Continue weekly BPP/NST with weekly Dopplers -Repeat growth in 3-4 weeks if undelivered -Recommend delivery at 39w0d to 39w6d, earlier delivery may be recommended for suboptimal interval growth, abnormal Dopplers, oligohydramnios or nonreassuring testing Follow-up ultrasound and testing will be scheduled in [facility] clinic. Leticia Zuniga MD Narrative 04/08/2024 11:19 AM PUBLIC HEALTH CLINICAL NURSE SPECIALIST Table formatting from the original result was not included. Images from the original result were not included. [facility] Maternal Medicine [address] [place] [id number] Dept Dept Patient Name: Karyn Moreno Referred By: Attending: MD Leticia Cuello MD Patient Classification Officer: Iesha Leach RDMS, DOB, Age: 2 1995, 28 y.o. GA Prior to Exam: 34w2d LMP: Patient's last menstrual period was 08/12/2023 (exact date). GA by Today's US: 31w5d Pregnancies: GA LAURA: 34w2d Last Menstrual Period Pre- BMI: 20.99 LAURA: 05/18/2024 Hx/Indications: NT at the 95% Low Risk NIPS FGR Date of Exam: 04/08/2024 Evaluation Gestation Type klein Cardiac Activity present Motion normal Presentation cephalic Amniotic Fluid normal Placenta Location anterior Placenta Appearance appears normal Placenta Cord Insertion normal BPP Breathing 2 Tone 2 Movement 2 Amniotic Fluid 2 Total Score 8 Measurement Value Rank GA FHR 142 bpm * BPD 7.81 cm < 1% 31w3d HC 28.37 cm < 1% 31w1d AC 28.05 cm 6% 32w1d FL 6.18 cm 3% 32w0d HL 4.59 cm < 1% FL/BPD 0.79 FL/AC 0.22 HC/AC 1.01 Lateral Ventricle 0.48 cm AMIRA 20.2 cm 50 - 95% AMIRA Q1 7.2 cm AMIRA Q2 6 cm AMIRA Q3 5 cm AMIRA Q4 2 cm Weight: 1,863 g (4 lb 1.7 oz), 4% Projected EFW at 39w:2,623g (5 lb 12.5 oz) Umbilical Artery UAR - S/D Ratio UAR - PI UAR - PSV 2.11, 10 - 25% 0.797, 10 - 25% 32.6 cm/s Middle Cerebral Artery MCA - S/D Ratio MCA - PI MCA - PSV 9.44 2.51 53.3 cm/s, 1.07 MoM Umbilical artery Doppler is normal on today's exam. Middle cerebral artery Doppler demonstrated normal resistance. Cerebroplacental ratio: 3.17, 99 % Head Cranium appears normal Midline Falx appears normal Lateral Ventricle appears normal Cavum Septi Pellucidi appears normal Heart Heart Rhythm regular Situs normal 4 Chamber View appears normal LVOT/AO appears normal RVOT/PA appears normal Abdomen Stomach appears normal Urinary Tract Right Kidney appears normal Left Kidney appears normal Bladder appears normal Maternal Evaluation Cervix Inadequately visualized Uterus Normal Cervical Length Approach N/A Right Ovary Inadequately Visualized With Fundal Pressure (cm) N/A Left Ovary Inadequately Visualized Funneling N/A Right Adnexa Normal Cul-de-sac N/A Left Adnexa Normal Impression INDICATION: growth restriction (FGR), thick NT (2.4 mm), h/o 24w PTD Leida Garrido MD RAD MFM US * MFM US OB BPP (04/01/2024 11:38 AM PUBLIC HEALTH CLINICAL NURSE SPECIALIST) Anatomical Region Laterality Modality Pelvis Ultrasound Study GA Study Date Study LAURA Working LAURA (Source) Feta l Weight (Method) 04/01/2024 05/18/2024 (Las t Menstrual Period) Result Name Value Comments GA by US Calc FHR 126 bpm BPD OFD HC AC FL HL CI FL/BPD FL/AC HC/AC HrtC/TC Heart Circ Thoracic Circ UAR - PSV 34.3 cm/s UAR - S/D Ratio 2.62 UAR - RI .62 UAR - PI .95 MCA - PSV MCA - S/D Ratio MCA - PI CPR Lateral Ventricle CER Cisterna Magna Max Vertical Pocket AMIRA 17.6 cm AMIRA Q1 5.2 cm AMIRA Q2 5.5 cm AMIRA Q3 4.1 cm AMIRA Q4 2.8 cm Foot Tib Fib Radius Ulna Clav Scapula Mitral Valve Tricuspid Valve Pulmonary Valve Aortic Valve Impressions 04/01/2024 12:19 PM PUBLIC HEALTH CLINICAL NURSE SPECIALIST S: -Intrauterine at 33w2d gestational age - presentation is: cephalic -AMIRA 17.6 cm -Reassuring biophysical profile: 02/24 with reactive NST -The umbilical artery Dopplers were normal RECOMMENDATIONS: -Continue routine care with primary OB provider -Weekly BPP/NST with Dopplers-has not been seen since growth US 03/09 -Repeat growth every 3-4 weeks, next 04/08 -Delivery planning will be reviewed at 34-36 weeks and final recommendations will be made according to ongoing surveillance. Delivery is typically recommended between 37-39 weeks in the setting of growth restriction, earlier delivery may be recommended for abnormal Dopplers, oligohydramnios or nonreassuring testing. The patient was not seen by the perinatologist today. Beatriz Bravo MD Narrative 04/01/2024 12:19 PM PUBLIC HEALTH CLINICAL NURSE SPECIALIST Table formatting from the original result was not included. Images from the original result were not included. [facility] Maternal Medicine [address] [place] [id number] Dept Dept Patient Name: Karyn Moreno Referred By: Attending: MD Beatriz Cuello MD Patient Classification Officer: Iraiscristiane Carter RDMS , Age: 2 1995, 28 y.o. GA Prior to Exam: 33w2d LMP: Patient's last menstrual period was 08/12/2023 (exact date). GA by Today's US: Pregnancies: GA LAURA: 33w2d Last Menstrual Period Pre- BMI: 20.99 LAURA: 05/18/2024 Hx/Indications: Thickened NT at primary US (2.2-2.9 mm) Low Risk NIPS Hx 24 week PTD loss (2016) followed by x 2 Hx x 1 (August 2022) 11/09/23 GC 11/10/23 (12w6d) Detailed NT/TVUS, NT = 2.4 mm at 95% 01/06/24 (21w0d) L2 & MFM Echo - EFW 20%, AC 31% 03/09/24 (30w0d) Growth - EFW 5th%, AC 7th%, Normal UAR BPP/NST & UAR Date of Exam: 04/01/2024 Evaluation Gestation Type klein Cardiac Activity present Motion normal Presentation cephalic Amniotic Fluid normal Placenta Location anterior Placenta Appearance appears normal BPP Breathing 2 Tone 2 Movement 2 Amniotic Fluid 2 Total Score 8 Measurement Value Rank GA FHR 126 bpm AMIRA 17.6 cm 50 - 95% AMIRA Q1 5.2 cm AMIRA Q2 5.5 cm AMIRA Q3 4.1 cm AMIRA Q4 2.8 cm Umbilical Artery UAR - S/D Ratio UAR - PI UAR - PSV 2.62, 50 - 75% 0.95, 50 - 75% 34.3 cm/s Umbilical artery Doppler is normal on today's exam. Heart Ductus Venosus appears normal Impression INDICATIONS: growth restriction, thickened NT in first trimester, history of Leida Garrido MD RAD MFM US * (ABNORMAL) PAP Test (10/02/2023 11:14 AM CDT) Case Report Pap Case: [id number] Authorizing Provider: Mackenzie Pascual MD Collected: 10/02/2023 1114 Ordering Location: [facility] Obstetrics and Received: 10/02/2023 1135 Gynecology First Screen: [place], CT (ASCP) Pathologist: Cheryl Singh MD Specimen: Pap Test, Routine, Cervix/Endocerv ix 11/24/2023 10:31 AM [facility] Pap Specimen Adequacy Satisfactory for evaluation, endocervical/tr ansformation zone component absent. 11/24/2023 10:31 AM [facility] Pap Interpretation (ASC-US) Atypical squamous cells of undetermined significance.(A ) 11/24/2023 10:31 AM [facility] Pap Disclaimer The Pap test is a screening test to aid in the detection of cervical and vaginal cancers and their precursor lesions. It is not a diagnostic procedure and should not be used as the sole means of detecting malignancy. Both false-positive and false-negative results may occur. 11/24/2023 10:31 AM [facility] Gross Description The specimen is received in SurePath fixative and properly labeled. 1 Pap-stained SurePath slide is prepared. 11/24/2023 10:31 AM [facility] Embedded Images 10:31 AM [facility] Other Specimen Type ENTIRE ENDOCERVIX / Unknown 10/02/2023 11:14 AM CDT 10/02/2023 11:35 AM CDT Comment:LMP: Patient's last menstrual period was 08/12/2023 (exact date). Mackenzie Pascual MD LAB PATHOLOGY [address] [id number], [facility] * HIV 1/2 Ag/Ab 4th Generation (10/02/2023 10:29 AM CDT) HIV 1/2 Antigen/Anti body (4th generation) Negative (Non Reactive) Negative (Non Reactive) 10/02/2023 1:25 PM CDT [facility] Comment:HIV-1 p24 Antigen an d HIV-1/HIV-2 Antibody not detected Blood Venipuncture / Unknown 10/02/2023 10:29 AM CDT 10/02/2023 10:29 AM CDT Mackenzie Pascual MD LAB_1 Performing Organization Address City/[facility] Co de Phone Number [facility] [address] * Hepatitis C Antibody, with Reflex (10/02/2023 10:29 AM CDT) Hepatitis C Antibody Negative (Non Reactive) Negative (Non Reactive) 10/02/2023 1:33 PM CDT [facility] Comment:Antibodies to HCV no t detected. Does not exclude the possiblity of exposure to HCV. Blood Venipuncture / Unknown 10/02/2023 10:29 AM CDT 10/02/2023 10:29 AM CDT Mackenzie Pascual MD LAB_1 Performing Organization Address [facility] Co de Phone Number [facility] [address] from Last 3 Months or Most Recently Relevant to Health Maintenance Advance Directives * Full Code (Latest Code Status on File) Date Activated Date Inactivated Comments 05/18/2024 8:43 PM 05/21/2024 4:32 PM * Full Code Date Activated Date Inactivated Comments 05/11/2024 6:23 AM 05/13/2024 4:52 PM Care Teams Supervisor [employer] Relationship Specialty Start Date End Date No Primary/Referring, Phy PCP - General 06/29/23
--- OUTSIDE RECORDS SUMMARY | 2024-06-28 10:11 | XMS_ITS | Encounter Summary ---
Author Organization [employer] Address [address] [place] [id number] Care Team Providers Care Tool Straightener Name Role Phone No Primary/Referring, Phy Primary Care Provider Unavailable Reason for Visit * Reason Comments Surgery Scheduling Encounter Details Date Type Department Care Team ([facility] st Contact Info) Description 05/23/2024 Telephone [facility] [address] [place] [address] Nova Griffiths MD [address] [place], [place] [id number] Surgery Scheduling Social History Tobacco Use Types Packs/Day Years Used Date Smoking Tobacco: Never Smokeless Tobacco: Never Alcohol Use Standard Drinks/Week Comments Not Currently 0 (1 standard drink = 0.6 oz pur e alcohol) [facility] Utilities Answer Date Recorded In the past 12 months has [facility] [employer], oil, or water [employer] threatened to shut off services in your [...] any time in the past 12 m [facility], were you homeless or living in a snf (including now)? No 05/19/2024 Depression Answer Date Recor ded Last EPDS Total Score 6 10/02/2023 Last EPDS Self Harm Result 0-->never 10/01 Sex and Gender Information Value Date Recorded Sex Assigned at Not on file Gender Identity Not on file Sexual Orientation Not on file documented as of this encounter Nursing Notes * Janet Naranjo - 05/23/2024 1:13 PM CST Surgery scheduled at [facility] on 06/30/24 Laparoscopic salpingectomy. Pre-op and post-op scheduled. Brochure mailed. Janet Naranjo S TIE TRAM LOADER documented in this encounter Plan of Treatment Scheduled Procedures Name Priority Associated Diagnoses Date/Ti me LAPAROSCOPIC SALPINGECTOMY Sterilization consult documented as of this encounter Visit Diagnoses Not on filedocumented in this encounter Care Teams Tool Straightener Relationship Specialty Start Date End Date No Primary/Referring, Phy PCP - General 06/29/23 documented as of this encounter
--- OUTSIDE RECORDS SUMMARY | 2024-06-28 10:11 | XMS_ITS | Encounter Summary ---
Author Organization [employer] Address [address], [place] [address] Care Team Providers Care Asbestos Removal Worker Name Role Phone No Primary/Referring, Phy Primary Care Provider Unavailable Reason for Visit * Reason Comments Follow-up Encounter Details Date Type Department Care Team (Late st Contact Info) Description 06/09/2024 Telephone [facility] Obstetrics and Gynecology [address] [place] [id number] Summer Cota, [facility] [address] [place] [address] Follow-up Social History Tobacco Use Types Packs/Day Years Used Date Smoking Tobacco: Never Smokeless Tobacco: Never Alcohol Use Standard Drinks/Week Comments Not Currently 0 (1 standard drink = 0.6 oz pur e alcohol) [facility] Utilities Answer Date Recorded In the past 12 months has [employer], gas, oil, or water [employer] threatened to shut off services in your [...] any time in the past 12 m [facility], were you homeless or living in a half-way (including now)? No 05/19/2024 Depression Answer Date Recor ded Last EPDS Total Score 6 10/02/2023 Last EPDS Self Harm Result 0-->never 10/01 Sex and Gender Information Value Date Recorded Sex Assigned at Not on file Gender Identity Not on file Sexual Orientation Not on file documented as of this encounter Nursing Notes * Summer Cota LSW - 06/09/2024 1:12 PM CST No call to Patient. Pt delivered. Unable to connect with Pt during . No further HB f/u indicated. PATRICA Hernandez, [employer] [facility] Chalk Molding Machine Operator WARE CONFIGURATION ANALYST documented in this encounter Plan of Treatment Scheduled Procedures Name Priority Associated Diagnoses Date/Ti me LAPAROSCOPIC SALPINGECTOMY Sterilization consult documented as of this encounter Visit Diagnoses Not on filedocumented in this encounter Care Teams Asbestos Removal Worker Relationship Specialty Start Date End Date No Primary/Referring, Phy PCP - General 06/29/23 documented as of this encounter
--- OUTSIDE RECORDS SUMMARY | 2024-06-28 10:11 | XMS_ITS | Encounter Summary ---
Author Organization [facility] Address [address], [place] [address] Care Team Providers Care [employer] Name Role Phone No Primary/Referring, Phy Primary Care Provider Unavailable Reason for Referral * Consult/Transfer Care (Routine) - New Request Specialty Diagnoses / Procedures Referred By Kimberly turner Referred To Contact Diagnoses Preeclampsia in period Jeferson Casiano MD [address] [place] [phone] Referral ID Status Reason Start Date Expiration Date V isits Requested Visits Authorized [id number] New Request 05/20/2024 08/19/2025 1 1 Scheduling Instructions [facility] You can quickly schedule your appointment by signing in to your online account at [email or web address] or through the text message you may have received. You can also make an appointment by calling [phone]. We also suggest you call your health insurance provider about your benefits and coverage for this appointment. Question Answer Appointment Urgency? Within 1 Week (Urgent) Reason for Visit? ROLLING MACHINE TENDER * Procedure/Equipment (Routine) - Incomplete Specialty Diagnoses / Procedures Referred By Kimberly t Referred To Contact Diagnoses Preeclampsia in period Procedures Blood Pressure Kit Jeferson Casiano MD [address] [place] [phone] Referral ID Status Reason Start Date Expiration Date V isits Requested Visits Authorized [id number] Incomplete 05/20/2024 08/19/2025 1 1 ROLLING MACHINE TENDER * Procedure/Equipment (Routine) - Incomplete Specialty Diagnoses / Procedures Referred By Contac t Referred To Contact Procedures CT Abd Pelvis WO IV Cont CT Abd Pelvis W IV Cont Sunita Serra PA-C [address] [place] [id number] Referral ID Status Reason Start Date Expiration Date V isits Requested Visits Authorized [id number] Incomplete 05/18/2024 08/17/2025 1 1 ROLLING MACHINE TENDER Reason for Visit * Reason Comments Abdominal Pain L sideGave las t week * Auth/Cert (Routine) Specialty Diagnoses / Procedures Referred By Contac t Referred To Contact Diagnoses Abdominal pain, left lower quadrant Hypertension, unspecified type (HRC) Preeclampsia in period Abdominal pain, left lower quadrant Hypertension, unspecified type (HRC) Preeclampsia in period Referral ID Status Reason Start Date Expiration Date Visits Re quested Visits Authorized [id number] 1 1 Encounter Details Date Type Department Care Team (Late st Contact Info) Description 05/18/2024 4:13 PM GUM ROLLING MACHINE TENDER - 05/21/2024 2:32 PM GUM ROLLING MACHINE TENDER Hospital Encounter [facility] [place] [id number] Babita Jarquin MD [address] [place] [id number] Ana Laura Sutton MD [address] [place] [id number] Jeferson Casiano MD [address] [place] [phone] Preeclampsia in period (Primary Dx); Abdominal pain, left lower quadrant; Hypertension, unspecified type (HRC) Discharge Disposition: Home Social History Tobacco Use Types Packs/Day Years Used Date Smoking Tobacco: Never Smokeless Tobacco: Never Alcohol Use Standard Drinks/Week Comments Not Currently 0 (1 standard drink = 0.6 oz pur e alcohol) [facility] Utilities Answer Date Recorded In the past 12 months has th e electric, gas, oil, or water company threatened to shut off services in your [...] any time in the past 12 m [facility], were you homeless or living in a [facility] (including now)? No 05/19/2024 Depression Answer Date Recor ded Last EPDS Total Score 6 10/02/2023 Last EPDS Self Harm Result 0-->never 10/01 Sex and Gender Information Value Date Recorded Sex Assigned at Not on file Gender Identity Not on file Sexual Orientation Not on file documented as of this encounter Last Filed Vital Signs Vital Sign Reading Time Taken Comments Blood Pressure 112/80 05/21/2024 10:50 AM GUM ROLLING MACHINE TENDER Pulse 104 05/21/2024 10:50 AM GUM ROLLING MACHINE TENDER Temperature 37.4 C (99.3 F) 05/21/2024 8:15 AM GUM ROLLING MACHINE TENDER Respiratory Rate 16 05/21/2024 8:15 AM GUM ROLLING MACHINE TENDER Oxygen Saturation 100% 05/21/2024 8:15 AM GUM ROLLING MACHINE TENDER Inhaled Oxygen Concentration - - Weight 53.3 kg (117 lb 6.4 oz) 05/18/2024 8:33 P M GUM ROLLING MACHINE TENDER Height 149.9 cm (4' 11) 05/18/2024 11:34 PM GUM ROLLING MACHINE TENDER Body Mass Index 23.71 05/18/2024 8:33 PM GUM ROLLING MACHINE TENDER documented in this encounter Discharge Summaries * Nova Griffiths MD - 05/21/2024 7:12 AM CST [facility] Discharge Summary Karyn Moreno Age: 28 y.o. Date of : 1995 Date of Admission: 05/18/2024 Date of Discharge:: 05/21/24 Admitting Physician: Jeferson Casiano MD Discharge Physician: Nova Griffiths MD Admission Diagnoses: - , PPD#7 s/p - Pre-eclampsia with severe features (BP) - H/o CS x1 - Anemia Discharge Diagnosis: - Same, now s/p 24 hours magnesium Procedures: Procedure(s): Observation and magnesium therapy Medications Prior to Admission: No medications prior to admission. Discharge Medications: Discharge Medication List as of 05/21/2024 12:01 PM START taking these medications Details NIFEdipine XL (PROCARDIA XL) 30 MG 24 hour release tablet Take 2 Tablets (60 mg) by mouth daily for60 days., Disp-120 Tablet, R-0, DAILY Starting 05/21/2024, Until 07/20/2024, For 60 days, Oral,E-Prescribing CONTINUE these medications which have CHANGED Details hydroCHLOROthiazide (ORETIC) 25 MG tablet Take 1 Tablet (25 mg) by mouth daily for 6 days., Disp-6 Tablet, R-0, DAILY Starting 05/21/2024, Until Thu05/27/2024, For 6 days, Oral, E-Prescribing CONTINUE these medications which have NOT CHANGED Details acetaminophen (TYLENOL) 325 MG tablet Take 2 Tablets (650 mg) by mouth every 6 hours as needed for Pain. Maximum daily dose of 4000mg acetaminophen., Disp-40 Tablet, R-0, Q6H PRN Starting Thu05/13/2024, Oral, E-Prescribing ferrous sulfate 325 (65 Fe) MG tablet Take 1 Tablet (325 mg) by mouth every other day. Do not take at the same time as taking vitamin., Disp-60 Tablet, R-1, Q48H Starting 01/25/2024, Oral,E-Prescribing hydrOXYzine HCl (ATARAX) 25 MG tablet Take 1 Tablet (25 mg) by mouth three times a day as needed for Itching, Anxiety, Pain or sleep., Disp-60 Tablet, R-0, TID PRN Starting 04/23/2024, Oral, E-Prescribing ibuprofen (MOTRIN) 600 MG tablet Take 1 Tablet (600 mg) by mouth every 6 hours as needed for Pain.,Disp-40 Tablet, R-0, Q6H PRN Starting Thu05/13/2024, Oral, E-Prescribing MV & Min w/FA-DHA ( GUMMIES OR) Historical sennosides-docusate sodium (SENOKOT S) 8.6-50 MG per tablet Take 1 Tablet by mouth daily., Disp-100Tablet, R-0, DAILY Starting Thu05/13/2024, Oral, E-Prescribing STOP taking these medications metoclopramide (REGLAN) 5 MG tablet Comments: Reason for Stopping: Consultations: None Brief Admission History: Karyn Moreno is a 28 y.o. on PPD#7 s/p who presented to the emergency room with left lower abdominal pain. She was noted to have sustained severe range blood pressures and was transferred to labor and delivery for evaluation and management. She reports she has had difficulty sleeping for the last few days. She has noticed and headache that comes and goes, currently 2/10. She also had some lower abdominal pain that has resolved since she arrived to the ER. At the time of her discharge she had not blood pressure issues. She denies RUQ pain, chest pain, shortness of breath, visual changes, swelling in her legs. Hospital Course On admission the patient had sustained severe range pressures requiring immediate acting [id number]. HELLP labs wnl, UPC 0.08. She was started on magnesium sulfate, at 2112, which was then discontinued the following day at 1309 give increased lethargy. Her mag level was 7.4, and she restarted magnesium at 1815 for the final 3 hours. The patient's hospital course was unremarkable. On the day of discharge, her blood pressures remained normotensive. Denies si/sx of worsening pre eclampsia She was appropriately titrated on her BP medications Relevant Labs - Recent Results (from the past 48 hour(s)) Glucose, Whole Blood POCT Collection Time: 05/21/24 5:15 AM Result Value Ref Range Glucose, Whole Blood 88 70 - 180 mg/dL Performing Location [facility] Discharge Instructions and Follow-Up: Discharge diet: Regular Discharge instructions: Instructed to call si/sx of pre E, BP > 160/110 Discharge follow-up: Follow up 1 week for BP check Discharge Disposition: Discharged to home in good condition Kirk Byrd D.O. MHandy [facility] CHAIN TENDER PGY-3 05/21/24 3:03 PM OB STAFF: I saw and evaluate the patient on the day of discharge and agree with the above documentation and plan. Headache that patient reported this AM improved. BP remained in normal range on current regimen. Stable for discharge home. Return precautions reviewed. Plan for short interval follow up. Nova Griffiths MD ROLLING MACHINE TENDER documented in this encounter Discharge Instructions * Discharge Instr - Other Orders* Latanya Brock - 05/21/2024 7:39 AM GUM ROLLING MACHINE TENDER Scheduled Future Appointments Please cancel any remaining appointments. Home Medications Finish your supply of vitamins and iron. Continue vitamins while nursing. If you are breast feeding, you should check with your doctor before taking any other medication. ROLLING MACHINE TENDER documented in this encounter Medications at Time of Discharge Medication Sig Dispensed Refills Start Date End Date acetaminophen (TYLENOL) 325 MG tablet Take 2 Tablets (650 mg) by mouth every 6 hours as needed for Pain. Maximum daily dose of 4000mg acetaminophen. 40 Tablet 05/13/2024 ferrous sulfate 325 (65 Fe) MG tablet Take 1 Tablet (325 mg) by mouth every other day. Do not take at the same time as taking vitamin. 60 Tablet 1 01/25/2024 hydroCHLOROthiazide (ORETIC) 25 MG tablet Take 1 Tablet (25 mg) by mouth daily for 6 days. 6 Tablet 05/21/2024 hydrOXYzine HCl (ATARAX) 25 MG tablet Take 1 Tablet (25 mg) by mouth three times a day as needed for Itching, Anxiety, Pain or sleep. 60 Tablet 04/23/2024 ibuprofen (MOTRIN) 600 MG tablet Take 1 Tablet (600 mg) by mouth every 6 hours as needed for Pain. 40 Tablet 05/13/2024 NIFEdipine XL (PROCARDIA XL) 30 MG 24 hour release tablet Take 2 Tablets (60 mg) by mouth daily for 60 days. 120 Tablet 05/21/2024 07/20/2024 MV & Min w/FA-DHA ( GUMMIES OR) sennosides-docusate sodium (SENOKOT S) 8.6-50 MG per tablet Take 1 Tablet by mouth daily. 100 Tablet 05/13/2024 documented as of this encounter Progress Notes * Nova Griffiths MD - 05/21/2024 7:10 AM CST Obstetrics & Gynecology Service Note S: Patient doing well this morning. Denies headache, RUQ pain, SOB, changes in vision. She otherwise has no concerns. O: Patient Vitals for the past 24 hrs: BP Temp Temp src Pulse Resp SpO2 05/21/24 1050 112/80 -- -- (!) 104 -- -- 05/21/24 0815 116/72 99.3 ??F (37.4 ??C) Oral 75 16 100 % 05/21/24 0425 105/76 98.2 ??F (36.8 ??C) Oral 65 16 99 % 05/21/24 0154 106/79 97.9 ??F (36.6 ??C) Oral 63 16 99 % 05/20/24 2240 117/79 -- -- 88 16 98 % 05/20/24 1855 121/78 -- -- 77 -- -- 05/20/24 1628 126/86 97.3 ??F (36.3 ??C) Oral 68 16 100 % 05/20/24 1440 130/88 -- -- 65 16 97 % 05/20/24 1230 (!) 155/92 98.1 ??F (36.7 ??C) Oral (!) 55 16 100 % Gen: Well appearing, NAD CV: RRR, no murmurs Pulm: CTAB, no wheezes or crackles Abd: Soft, non tender to palpation Ext: No BLE edema I/O: Intake/Output Summary (Last 24 hours) at 05/21/2024 1055 Last data filed at 05/20/2024 2246 Gross per 24 hour Intake -- Output 600 ml Net -600 ml A/P: Karyn Moreno is a 28 y.o. PPD#10 s/p who presents with pre- eclampsia with severe features by blood pressure criteria. Patient is now s/p magnesium. Was preparing for discharge yesterday, then began to have more elevated pressures throughout the afternoon. She was started on nifedipine and HCTZ and now has remained normotensive; safe for discharge. # Pre-eclampsia with SF (BP) Initially presented to the ER for LLQ pain but was noted to have severe range blood pressures requiring immediate acting nifedipine 10 mg. HELLP labs wnl and UPC 0.08. Asymptomatic other than a mild headache. Differential includes stress related to sleep deprivation; however, given the severity of her blood pressures, she was treated for pre-eclampsia with severe features. - Serial BP monitoring - BPs: mild range prior to nifedipine, now normotensive - D#2 nifedipine 60mg, HCTZ. Will discharge with remaining 7 day course of HCTZ. - IV antihypertensives PRN for sustained severe range blood pressures (SBP>160, DBP>110 sustained over 15 minutes) - Labs: HELLP labs nl, UPC 0.08 - Daily weights, strict I&Os - S/p 24hr magnesium # - Routine cares Home today Kirk Byrd D.O. MRinARin [facility] CHAIN TENDER PGY-3 05/21/24 10:55 AM OB STAFF: I saw and evaluated the patient and agree with the above documentation. PPD#10 s/p readmitted for preeclampsia with SF based on BP. HELLP labs wnl on admission. She is s/p 24 hours IV magnesium. BP well controlled on current regimen of Nifed XL 60mg BID. Karyn endorses headache this AM. Has not been out of bed much. Encouraged PO hydration, eating breakfast, and Tylenol. If HIGHTOWER resolves plan to discharge home later today. Nova Griffiths MD ROLLING MACHINE TENDER * Renita Aranda MD - 05/20/2024 7:53 AM CST Obstetrics & Gynecology Service Note S: Patient doing well this morning, reports mild headache but was able to sleep well. Denies RUQ pain, SOB, changes in vision. She otherwise has no concerns. O: Vitals: 05/19/24 2215 05/19/24 2300 05/20/24 0310 BP: (!) 118/90 122/85 113/76 Pulse: 68 70 76 Resp: 20 18 18 Temp: 98.6 ??F (37 ??C) 98.6 ??F (37 ??C) 99.1 ??F (37.3 ??C) SpO2: 100% 98% Weight: Gen: Well appearing, NAD CV: RRR, no murmurs Pulm: CTAB, no wheezes or crackles Abd: Soft, non tender to palpation I/O: Intake/Output Summary (Last 24 hours) at 05/20/2024 0751 Last data filed at 05/19/2024 1139 Gross per 24 hour Intake 240 ml Output 350 ml Net -110 ml A/P: Karyn Moreno is a 28 y.o. PPD#9 s/p who presents with pre- eclampsia with severe features by blood pressure criteria. Patient is now s/p magnesium. Blood pressure are normotensive. Safe for discharge # Pre-eclampsia with SF (BP) Initially presented to the ER for LLQ pain but was noted to have severe range blood pressures requiring immediate acting nifedipine 10 mg. HELLP labs wnl and UPC 0.08. Asymptomatic other than a mild headache. Differential includes stress related to sleep deprivation; however, given the severity of her blood pressures, she was treated for pre-eclampsia with severe features. - Serial BP monitoring - BPs: normotensive while on magnesium and off therapy - Antihypertensives: no HOME OFFICE CLAIMS EXAMINER meds; IV antihypertensives PRN for sustained severe range blood pressures (SBP>160, DBP>110 sustained over 15 minutes) - Labs: HELLP labs nl, UPC 0.08 - Daily weights, strict I&Os - S/p 24hr magnesium - will discharge with 7D x HCTZ # - Routine cares Kirk Byrd D.O., M.A. [facility] CHAIN TENDER PGY-3 05/20/24 7:52 AM Agree with progress note as written. 28 y.o. who is PPD#9 s/p now with pre-eclampsia with SF, starting Nifedipine- continue to closely monitor. Anticipate DC later today. Renita Aranda MD ROLLING MACHINE TENDER * Gretchen Oliver DO - 05/19/2024 5:07 PM CST Brief Progress Note S: Resident to patient bedside to revisit patient and update about magnesium level. Patient is feeling much better - stated she just started feeling better. Is awake and alert. Discussed restarting magnesium -- requests to restart after she eats dinner. O: Filed Vitals: 05/19/24 1300 05/19/24 1400 05/19/24 1504 05/19/24 1540 BP: 109/75 112/77 119/81 117/84 Pulse: 82 86 88 71 Resp: 18 18 18 16 Temp: 98.6 ??F (37 ??C) TempSrc: Oral SpO2: 98% 98% 100% 98% Weight: Height: Gen: Pleasant, well-appearing, in no acute distress Cardio: RRR Pulm: CTAB Extremities: 1+ patellar reflexes b/l I/O: Intake/Output Summary (Last 24 hours) at 05/19/2024 1709 Last data filed at 05/19/2024 1139 Gross per 24 hour Intake 624.17 ml Output 1150 ml Net -525.83 ml Output: No recent documented output Latest Reference Range & Units 05/19/24 13:18 Magnesium 1.6 - 2.6 mg/dL 7.4 (HH) (HH): Data is critically high A/P: - Mg within therapeutic level. - Vitals WNL. - Plan to restart Mg at 1800. - D/c at 2115 - 24h. Gretchen Oliver DO, MPH Obstetrics and Gynecology, PGY-1 05/19/24 5:13 PM ROLLING MACHINE TENDER * Gretchen Oliver DO - 05/19/2024 1:10 PM CST Obstetrics & Gynecology Service Magnesium Check Note S: Resident called to patient bedside per request of bedside RN dt increased patient lethargy. Patient says she cannot function - she can't feed herself and can't keep her eyes open long enough to focus on people or the television. She states that something is wrong. O: Patient Vitals for the past 4 hrs: BP Temp Temp src Pulse Resp SpO2 05/19/24 1214 119/78 98 ??F (36.7 ??C) Oral 79 17 99 % 05/19/24 1100 121/85 -- -- 78 18 99 % 05/19/24 1000 111/75 -- -- 78 18 98 % Gen: Well appearing, NAD CV: RRR, no murmurs Pulm: CTAB, no wheezes or crackles Abd: Soft, non tender to palpation Ext: Patellar reflexes absent b/l, 2+ clonus R, 1+ clonus L, no LE edema b/l I/O: Intake/Output Summary (Last 24 hours) at 05/19/2024 1310 Last data filed at 05/19/2024 1139 Gross per 24 hour Intake 624.17 ml Output 1150 ml Net -525.83 ml Output: 0.93 mL/kg/hr A/P: Karyn Moreno is a 28 y.o. PPD#7 s/p who presents with pre- eclampsia with severefeatures by blood pressure criteria. Concern for magnesium toxicity based on clinical presentation.D/c mag. Mg level pending. # Pre-eclampsia with SF (BP) Initially presented to the ER for LLQ pain but was noted to have severe range blood pressures requiring immediate acting nifedipine 10 mg. HELLP labs wnl and UPC 0.08. Asymptomatic other than a mild headache. Differential includes stress related to sleep deprivation; however, given the severity of her blood pressures, will plan to treat for pre-eclampsia with severe features by blood pressure criteria - Serial BP monitoring - BPs: now normotensive s/p IR nifed 10 mg - Antihypertensives: no HOME OFFICE CLAIMS EXAMINER meds; IV antihypertensives PRN for sustained severe range blood pressures (SBP>160, DBP>110 sustained over 15 minutes) - Labs: HELLP labs, UPC 0.08 - Daily weights, strict I&Os - D/c Mg due to clinical concern for toxicity. Mg level pending. - Will consider adding nifedipine extended release if she continues to have high mild range blood pressures # - Routine cares Gertchen Oliver DO, MPH Obstetrics and Gynecology, PGY-1 05/19/24 1:14 PM ROLLING MACHINE TENDER * Manuela Lacy MD - 05/19/2024 6:37 AM CST Obstetrics & Gynecology Service Magnesium Check Note S: Patient continues to besleeping in bed, history and exam limited, but per RN she is feeling muchwell. . O: Patient Vitals for the past 4 hrs: BP Temp Temp src Pulse Resp SpO2 05/19/24 0818 -- 97.7 ??F (36.5 ??C) Oral -- -- -- 05/19/24 0800 117/81 -- -- 76 18 99 % 05/19/24 0700 113/84 -- -- 75 -- 98 % 05/19/24 0600 98/66 97.9 ??F (36.6 ??C) Oral 82 -- 97 % 05/19/24 0527 98/62 -- -- 78 -- 98 % Gen: Well appearing, NAD CV: RRR, no murmurs Pulm: CTAB, no wheezes or crackles Abd: Soft, non tender to palpation Ext: Patellar reflexes 1+ b/l, clonus b/l, no LE edema b/l I/O: Intake/Output Summary (Last 24 hours) at 05/19/2024 0837 Last data filed at 05/19/2024 0700 Gross per 24 hour Intake 384.17 ml Output 800 ml Net -415.83 ml A/P: Karyn Moreno is a 28 y.o. PPD#7 s/p who presents with pre- eclampsia with severefeatures by blood pressure criteria. Patient tolerating magnesium without concerns. # Pre-eclampsia with SF (BP) Initially presented to the ER for LLQ pain but was noted to have severe range blood pressures requiring immediate acting nifedipine 10 mg. HELLP labs wnl and UPC 0.08. Asymptomatic other than a mild headache. Differential includes stress related to sleep deprivation; however, given the severity of her blood pressures, will plan to treat for pre-eclampsia with severe features by blood pressure criteria - Serial BP monitoring - BPs: now normotensive s/p IR nifed 10 mg - Antihypertensives: no HOME OFFICE CLAIMS EXAMINER meds; IV antihypertensives PRN for sustained severe range blood pressures (SBP>160, DBP>110 sustained over 15 minutes) - Labs: HELLP labs, UPC 0.08 - Daily weights, strict I&Os - Begin magnesium sulfate seizure ppx- 4g loading dose, followed by 2g per hour maintenance - Mg level 6hrs after initiation of therapy - Mg checks q4h - Will continue for 24hrs post-delivery - Will consider adding nifedipine extended release if she continues to have high mild range blood pressures # - Routine cares Brittney Marshall MD CHAIN TENDER PGY-1 05/19/2024 8:37 AM Staff Note: I saw and evaluated Karyn Moreno. I agree with Dr. Marshall's findings and plan of care as documented in the Resident's note. Manuela Lacy MD Date of Service: 05/19/2024 ROLLING MACHINE TENDER * Brittney Marshall MD - 05/19/2024 2:41 AM CST Obstetrics & Gynecology Service Magnesium Check Note S: Patient is feeling sleeping in bed, history and exam limited, but per RN she is feeling much better. O: Patient Vitals for the past 4 hrs: BP Pulse SpO2 Height 05/19/24 0239 103/69 71 99 % -- 05/19/24 0116 103/62 72 99 % -- 05/19/24 0015 117/85 68 99 % -- 05/18/24 2334 -- -- -- 4' 11 (1.499 m) 05/18/24 2300 129/70 70 99 % -- Gen: Well appearing, NAD CV: RRR, no murmurs Pulm: CTAB, no wheezes or crackles Abd: Soft, non tender to palpation Ext: Patellar reflexes 1+ b/l, clonus b/l, no LE edema b/l I/O: No intake or output data in the 24 hours ending 05/19/24 0241 A/P: Karyn Moreno is a 28 y.o. PPD#7 s/p who presents with pre- eclampsia with severefeatures by blood pressure criteria. Patient tolerating magnesium without concerns. # Pre-eclampsia with SF (BP) Initially presented to the ER for LLQ pain but was noted to have severe range blood pressures requiring immediate acting nifedipine 10 mg. HELLP labs wnl and UPC 0.08. Asymptomatic other than a mild headache. Differential includes stress related to sleep deprivation; however, given the severity of her blood pressures, will plan to treat for pre-eclampsia with severe features by blood pressure criteria - Serial BP monitoring - BPs: now normotensive s/p IR nifed 10 mg - Antihypertensives: no HOME OFFICE CLAIMS EXAMINER meds; IV antihypertensives PRN for sustained severe range blood pressures (SBP>160, DBP>110 sustained over 15 minutes) - Labs: HELLP labs, UPC 0.08 - Daily weights, strict I&Os - Begin magnesium sulfate seizure ppx- 4g loading dose, followed by 2g per hour maintenance - Mg level 6hrs after initiation of therapy - Mg checks q4h - Will continue for 24hrs post-delivery - Will consider adding nifedipine extended release if she continues to have high mild range blood pressures # - Routine cares Brittney Marshall MD CHAIN TENDER PGY-1 05/19/2024 2:41 AM ROLLING MACHINE TENDER documented in this encounter OR Notes * H&P - Kailey Wall MD - 05/18/2024 8:43 PM CST [facility] Labor & Delivery History and Physical Karyn Moreno : 1995 HPI: Karyn Moreno is a 28 y.o. PPD#7 s/p who presented to the emergency room with left lower abdominal pain. She was noted to have sustained severe range blood pressures and was transferred to labor and delivery for evaluation and management. She reports she has had difficulty sleeping for the last few days. She has noticed and headache that comes and goes, currently 2/10. She also had some lower abdominal pain that has resolved since shearrived to the ER. At the time of her discharge she had not blood pressure issues. She denies RUQ pain, chest pain, shortness of breath, visual changes, swelling in her legs. Since delivery her bleeding has been minimal. Also denies recent illness, fever/chills, cough, sore throat, nausea/vomiting, change in vaginal discharge, vaginal itch/burn, dysuria, diarrhea, or constipation. OB History OB History Para Term AB Living 9 6 5 1 3 5 SAB IAB Ectopic Multiple Live Births 1 2 0 0 4 # Outcome Date GA Lbr Mark/2nd Weight Sex Type Anes PTL Lv 9 Term 05/11/24 39w0d 04:00 / 00:11 2760 g (6 lb 1.4 oz) M None N CLAUDIA Name: Josué Smith Apgar1: 8 Apgar5: 9 8 Term 08/2022 CS-LTranv 7 SAB 2021 6w0d 6 Term 12/27/20 Vag-Spont CLAUDIA 5 Term 05/24/18 Vag-Spont CLAUDIA 4 IAB 2018 3 07/09/16 24w0d FD 2 Term 04/15/15 Vag-Spont CLAUDIA 1 IAB 2012 Past Medical History No past medical history on file. Past Surgical History Past Surgical History: Procedure Laterality Date SECTION DILATION AND CURETTAGE Current Medications No outpatient medications have been marked as taking for the 05/18/24 encounter (Hospital Encounter). Allergies Allergies Allergen Reactions Latex Rash Family Medical History Not reviewed Social History Not reviewed Review of Systems Negative except per HPI Physical Exam Patient Vitals for the past 4 hrs: BP Pulse Resp SpO2 Weight 05/18/242032 -- -- -- -- 53.3 kg (117 lb 6.4 oz) 05/18/242023 103/52 90 -- 100 % -- 05/18/242008 117/64 -- -- 100 % -- 05/18/24 1950 (!) 178/97 (!) 54 -- 100 % -- 05/18/24 1940 (!) 200/98 (!) 50 -- 100 % -- 05/18/24 1930 (!) 189/96 (!) 58 -- 100 % -- 05/18/24 1915 -- (!) 58 -- 98 % -- 05/18/24 1900 (!) 189/90 (!) 47 18 100 % -- 05/18/24 1711 (!) 160/100 -- -- -- -- 05/18/24 1651 -- (!) 51 -- -- -- 05/18/24 1645 (!) 179/97 -- -- -- -- Prepregnancy BMI: 20.99 Total weight gain: 12.9 kg (28 lb 6.4 oz) BMI Today: Estimated body mass index is 23.71 kg/m?? as calculated from the following: Height as of 05/11/24: 4' 11 (1.499 m). Weight as of this encounter: 53.3 kg (117 lb 6.4 oz). General: NAD. A&Ox3. Heart: RRR, no murmurs, rubs, or gallops Lungs: NWOB, CTAB Abdomen: soft, non-tender, fundus firm and non-tender Extremities: No edema bilaterally Labs Ordered/Results Pending CBC, T&S, Treponema COVID Results for orders placed or performed during the hospital encounter of 05/18/24 UA Conditional UC: Clean Catch Collection Time: 05/18/24 1:37 PM Specimen: Clean Catch; Urine Result Value Ref Range Urine Culture Comment Urine Color Yellow Urine Clarity Clear Clear Specific [place], Urine 1.028 <1.030 PH Urine 5.5 5.0 - 8.0 Protein, Urine Qual (mg/dL) 10 Negative, 10 , 20 Glucose Urine Qual (mg/dL) Normal (Negative) Normal (Negative), 30 , 50 Ketones, Urine (mg/dL) Negative Negative, Trace Urobilinogen, Urine (EU/dL) Normal (Negative) Normal (Negative) Bilirubin Urine (mg/dL) Negative Negative Blood, Urine (mg/dL) 0.50 (Moderate) (A) Negative, 0.03 (Trace) Nitrite Urine Negative Negative Leukocyte Esterase, Urine (Marcos/uL) Negative Negative, 25 (Trace) Red Blood Cells 25 (H) 0 - 3 /HPF White Blood Cells 5 0 - 5 /HPF Squamous Epithelial Cells Occasional None Seen, Occasional, Few /HPF Mucus Present (A) None Seen /HPF Source Clean Catch TP/Crea Ratio, Urine Collection Time: 05/18/24 1:37 PM Result Value Ref Range TP/Creat Ratio, Urine Random 0.08 0.00 - 0.20 Total Protein, Urine, Random 16 (H) 0 - 14 mg/dL Creatinine, Urine, Random 208 >20 mg/dL mg/dL Complete Blood Count-No Diff Collection Time: 05/18/24 1:49 PM Result Value Ref Range WBC 9.5 3.5 - 10.5 x10(9)/L RBC 4.78 3.90 - 5.03 x10(12)/L Hemoglobin 10.3 (L) 12.0 - 15.5 g/dL HCT 34.1 (L) 34.9 - 44.5 % MCV 71.3 (L) 80.0 - 100.0 fL MCH 21.5 (L) 27.6 - 33.3 pg MCHC 30.2 (L) 31.5 - 35.2 g/dL RDW 21.8 (H) 11.9 - 15.5 % Platelets 232 150 - 450 x10(9)/L Automated NRBC 0 <=0 /100 WBC Basic Metabolic Panel Collection Time: 05/18/24 1:49 PM Result Value Ref Range Sodium 140 136 - 145 mmol/L Potassium 3.5 3.5 - 5.1 mmol/L Chloride 106 98 - 109 mmol/L CO2 26 20 - 29 mmol/L Anion Gap 8 6 - 16 mmol/L Calcium 8.7 8.4 - 10.4 mg/dL BUN 11 7 - 26 mg/dL Creatinine 0.63 0.55 - 1.02 mg/dL Glucose 78 70 - 100 mg/dL GFR, Estimated >60 >60 mL/min/1.73m2 Liver Panel(Hepatic Function Panel) Collection Time: 05/18/24 1:49 PM Result Value Ref Range Alkaline Phosphatase 114 40 - 150 U/L Bilirubin, Total 0.5 0.2 - 1.2 mg/dL Bilirubin, Direct 0.2 0.0 - 0.5 mg/dL AST (SGOT) 16 10 - 40 U/L ALT (SGPT) 25 <=55 U/L Protein, Total 8.0 6.4 - 8.3 g/dL Albumin 3.0 (L) 3.5 - 5.0 g/dL Assessment/Plan Karyn Moreno is a 28 y.o. PPD#7 s/p who presents with pre- eclampsia with severe features by blood pressure criteria # Pre-eclampsia with SF (BP) Initially presented to the ER for LLQ pain but was noted to have severe range blood pressures requiring immediate acting nifedipine 10 mg. HELLP labs wnl and UPC 0.08. Asymptomatic other than a mild headache. Differential includes stress related to sleep deprivation; however, given the severity of her blood pressures, will plan to treat for pre-eclampsia with severe features by blood pressure criteria - Serial BP monitoring - BPs: now normotensive s/p IR nifed 10 mg - Antihypertensives: no HOME OFFICE CLAIMS EXAMINER meds; IV antihypertensives PRN for sustained severe range blood pressures (SBP>160, DBP>110 sustained over 15 minutes) - Labs: HELLP labs, UPC 0.08 - Daily weights, strict I&Os - Begin magnesium sulfate seizure ppx- 4g loading dose, followed by 2g per hour maintenance - Mg level 6hrs after initiation of therapy - Mg checks q4h - Will continue for 24hrs post-delivery - Will consider adding nifedipine extended release if she continues to have high mild range blood pressures Discussed with Dr. Wall. Michelle Zapien MD coffee weigher PGY-4 05/18/2024 8:44 PM Date of Service: 05/18/24 ???I saw and evaluated the patient with the resident and I agree with Dr. Zapien's findings and plan. day 7 status post successful . Seen for headache, left lower quadrant pain and severe range blood pressures in the emergency room. Patient transferred to L&D for evaluation. All preeclamptic labs were normal. Multiple elevated blood pressures noted in the ED patient given nifedipine and blood pressures in labor and delivery were in the more normal range. No proteinuria. severe hypertension diagnosed. She has been in a lot of stress and inability to sleep since she went home. Plan is to start IV Mag load and maintenance. Continuing to monitor blood pressures urine output and signs of magnesium toxicity. Will check Mag level 4 hours on maintenance dose. Admit to after Mag load for monitoring. Please see the note dated 05/18/2024.?? Kailey Wall MD ROLLING MACHINE TENDER documented in this encounter ED Notes * Rosmery Anderson RN - 05/18/2024 7:57 PM CST Patient transported to L&D intake via w/c accompanied by ERT. Report called to L&D RN. ROLLING MACHINE TENDER * Shayy Hines RN - 05/18/2024 4:37 PM CST Patient to CT. Patient is lactating, does not have a pump. Pump borrowed from L&D will need to be returned when patient discharges. ROLLING MACHINE TENDER * Sunita Serra PA-C - 05/18/2024 4:16 PM CST [facility] Emergency Medicine Visit Note Chief Complaint: Abdominal Pain (L side/Gave last week) MIKE Moreno is a 28 y.o. female with a hx of anemia who is approximately one-week from a vaginal , uncomplicated, who presents for evaluation of left lower quadrant abdominal pain. She states this came on sometime last night and has been constant since the onset. She has felt int ermittently nauseated and has had some decreased p.o. intake. She has not had any actual vomiting. She states normally and last had a bowel movement yesterday. She did struggle with constipation throughout her but states that this does not feel like constipation pain to her. She denies any blood in his stool. She denies any foul vaginal discharge or uterine pain. No fever. No dysuria orother urinary symptoms. She endorses a little bit of vaginal bleeding has been ongoing and improving since her delivery. Triage Vitals [05/18/24 1130] Temp 98.6 ??F (37 ??C) Temp src Oral Pulse 63 Resp 18 BP (!) 151/102 SpO2 96 % Physical Exam Constitutional: Alert, no acute distress Head: Normocephalic, atraumatic. Eyes: Conjunctiva clear bilaterally. Mouth: Moist oral mucosa. Neck: Neck is supple. Full range of motion. Cardiac: Regular rate and rhythm. No murmurs. Pulmonary: No increased work of breathing. Breath sounds clear to auscultation bilaterally. Abdomen: Soft, nondistended. Tenderness in the left lower quadrant. No uterine tenderness. No rebound or guarding. Musculoskeletal: Moves all extremities without difficulty. No edema of lower extremities. Neurological: Awake and alert. Speech is clear. Skin: Warm and dry. No rash to exposed areas of skin. MDM: Patient is a 28-year-old female here with left lower quadrant abdominal pain in the setting of being one-week from a vaginal delivery as described above. On arrival here she is afebrile and not toxic appearing. Initially hypertensive with blood pressure of 151/102, but with otherwise reassuring vital signs. On exam she does have focal tenderness in left lower quadrant without rebound or guarding. She has no uterine tenderness or foul-smelling vaginal discharge that would be worrisomefor endometritis or contain products etc.. We pursued a workup here which shows reassuring laboratory studies with no leukocytosis. She has a stable chronic anemia with a hemoglobin of 10.2. This is markedly up from her last hemoglobin level couple of days ago. She has normal renal function and electrolytes. We did a CT scan of her abdomen and pelvis. Initially the plan was for IV contrast but she declined receiving the IV contrast because she had an adverse reaction to this in the past. In speaking further with her about this she developed some nausea after receiving oral contrast. Regardless, she underwent non-con CT scan of the abdomen which shows no evidence of bowel obstruction or other acute explanation for her symptoms. It does show a ventral hernia without evidence of bowel obstruction or incarcerated hernia. On exam I do not palpate a mass or hernia. Her CT scan does show a mode rate amount of stool in the colon and certainly this could be what is causing her abdominal pain. Unfortunately throughout her ED course she remained persistently hypertensive here. In speaking with her she tells me that she dealt with elevated blood pressure readings while in the hospital here andrequired medication during that time but was never preeclamptic or had a history of this. She was not discharged with any antihypertensives. She does tell me that she has had persistent headaches throughout this entire which perhaps we are getting a little bit worse than usual. She currently denies any active headache. She denies any leg swelling and no right upper quadrant abdominal pain. Her LFTs are unremarkable. She has no thrombocytopenia. She has no evidence of HELLP syndrome here. Otherwise normal renal function and no proteinuria. However, given her persistent we elevated blood pressures as high as 190 systolic high concern for preeclampsia in this patient. I spoke with the on-call Ob who agrees and wants this patient admitted to their service for further workup and management. She received an initial dose of nifedipine here and will transfer to their service for ongoing management. Sunita Serra PA-C ED Course as of 05/18/242116May 18, 2024 165 ATTENDING: I personally saw the patient, performed jones elements of the visit, and supervised patient care with the multimedia author. MDM: unilateral headache. Walking without difficulty. Intermittent vertiginous symptoms however. Will do CTA, labs, and re eval. Anticipate home. [JW] 1729 Liver Panel(Hepatic Function Panel)(!) Unremarkable [SH] 1729 Basic Metabolic Panel Normal renal function and electrolytes. [SH] 1729 UA Conditional UC: Clean Catch(!) Small amount of blood most likely related to some slight ongoing vaginal bleeding from her recent vaginal delivery. No signs of infection. No proteinuria. [SH] 194 One dose of 10 mg nifedipine ordered, pharmacy aware and he will bring it over for the patient. [] ED Course User Index [] Ana Laura Sutton MD [JW] Babita Jarquin MD [SH] Sunita Serra PA-C Clinical Impressions as of 05/18/242116 Abdominal pain, left lower quadrant Hypertension, unspecified type (HRC) Preeclampsia in period ROLLING MACHINE TENDER documented in this encounter Plan of Treatment Scheduled Procedures Name Priority Associated Diagnoses Date/Ti me LAPAROSCOPIC SALPINGECTOMY Sterilization consult Scheduled Referrals Name Type Priority Associated Diagnoses Orde r Schedule Clinic Referral Referral Routine Preeclampsia in period Ordered: 05/20/2024 documented as of this encounter Procedures Procedure Name Priority Date/Time Associated Diagnosis Comments GLUCOSE, WHOLE BLOOD POCT Routine 05/21/2024 5:15 AM GUM ROLLING MACHINE TENDER MAGNESIUM STAT 05/19/2024 1:18 PM [facility]UM ROLLING MACHINE TENDER CT ABD PELVIS WO IV CONT STAT 05/18/2024 4:39 PM [facility]UM ROLLING MACHINE TENDER LIVER PANEL(HEPATIC FUNCTION PANEL) Add-On 05/18/2024 1:49 PM [employer]UM ROLLING MACHINE TENDER BASIC METABOLIC PANEL STAT 05/18/2024 1:49 PM [facility]UM ROLLING MACHINE TENDER COMPLETE BLOOD COUNT-NO DIFF STAT 05/18/2024 1:49 PM [facility]UM ROLLING MACHINE TENDER UA CONDITIONAL UC STAT 05/18/2024 1:3 7 PM GUM ROLLING MACHINE TENDER TP/CREA RATIO, URINE Add-On 05/18/2024 1:37 PM [facility]UM ROLLING MACHINE TENDER documented in this encounter Results * Glucose, Whole Blood POCT (05/21/2024 5:15 AM GUM ROLLING MACHINE TENDER) Glucose, Whole Blood 88 70 - 180 mg/dL 05/21/2024 5:17 AM GUM ROLLING MACHINE TENDER [facility] Performing Location RCLab SE2 05/21/2024 5:17 AM GUM ROLLING MACHINE TENDER [facility] Blood 05/21/2024 5:15 AM GUM ROLLING MACHINE TENDER 05/21/2024 5:17 AM GUM ROLLING MACHINE TENDER Jeferson Casiano MD LAB_[address] [place] [address], [facility] * (ABNORMAL) Magnesium (05/19/2024 1:18 PM GUM ROLLING MACHINE TENDER) Magnesium 7.4(HH) 1.6 - 2.6 mg/dL 05/19/2024 1:48 PM GUM ROLLING MACHINE TENDER [facility] Blood Venipuncture / Unknown 05/19/2024 1:18 PM GUM ROLLING MACHINE TENDER 05/19/2024 1:22 PM GUM ROLLING MACHINE TENDER Jeferson Casiano MD LAB_1 Performing Organization Address City/State/[facility] Co de Phone Number [facility] [address] [place] [address], [facility] * CT Abd Pelvis WO IV Cont (05/18/2024 4:39 PM GUM ROLLING MACHINE TENDER) Anatomical Region Laterality Modality Abdomen, Pelvis Computed Tomogra phy 05/18/2024 4:39 PM GUM ROLLING MACHINE TENDER Narrative 05/18/2024 6:28 PM GUM ROLLING MACHINE TENDER EXAM: CT ABD PELVIS WO IV CONT LOCATION: [facility] DATE: 05/18/2024 INDICATION: Left lower quadrant [...] CT ABD PELVIS WO IV CONT LOCATION: [facility] DATE: 05/18/2024 INDICATION: Left lower quadrant [...] Liver Panel(Hepatic Function Panel) (05/18/2024 1:49 PM GUM ROLLING MACHINE TENDER) Alkaline Phosphatase 114 40 - 150 U/L 05/18/2024 5:22 PM [facility] Bilirubin, Total 0.5 0.2 - 1.2 mg/dL 05/18/2024 5:22 PM [facility] Bilirubin, Direct 0.2 0.0 - 0.5 mg/dL 05/18/2024 5:22 PM [facility] AST (SGOT) 16 10 - 40 U/L 05/18/2024 5:22 PM [facility] ALT (SGPT) 25 <=55 U/L 05/18/2024 5:22 PM [facility] Protein, Total 8.0 6.4 - 8.3 g/dL 05/18/2024 5:22 PM [facility] Albumin 3.0(L) 3.5 - 5.0 g/dL 05/18/2024 5:22 PM [facility] Blood Venipuncture / Unknown 05/18/2024 1:49 PM GUM ROLLING MACHINE TENDER 05/18/2024 1:54 PM GUM ROLLING MACHINE TENDER Ana Laura Sutton MD LAB_1 [facility] [address] [place] [address], [facility] * Basic Metabolic Panel (05/18/2024 1:49 PM GUM ROLLING MACHINE TENDER) Sodium 140 136 - 145 mmol/L 05/18/2024 2:18 PM [facility] Potassium 3.5 3.5 - 5.1 mmol/L 05/18/2024 2:18 PM [facility] Chloride 106 98 - 109 mmol/L 05/18/2024 2:18 PM [facility] CO2 26 20 - 29 mmol/L 05/18/2024 2:18 PM [facility] Anion Gap 8 6 - 16 mmol/L 05/18/2024 2:18 PM [facility] Calcium 8.7 8.4 - 10.4 mg/dL 05/18/2024 2:18 PM [facility] BUN 11 7 - 26 mg/dL 05/18/2024 2:18 PM [facility] Creatinine 0.63 0.55 - 1.02 mg/dL 05/18/2024 2:18 PM [facility] Glucose 78 70 - 100 mg/dL 05/18/2024 2:18 PM [facility] Comment:The given reference range is for the fasting state. Non-fasting reference range for glucose is 70 - 180 mg/dL. GFR, Estimated >60 >60 mL/min/1.7 3m2 05/18/2024 2:18 PM [facility] Blood Venipuncture / Unknown 05/18/2024 1:49 PM GUM ROLLING MACHINE TENDER 05/18/2024 1:54 PM GUM ROLLING MACHINE TENDER aBbita Jarquin MD LAB_1 [facility] [address] [place] [address], [facility] * (ABNORMAL) Complete Blood Count-No Diff (05/18/2024 1:49 PM GUM ROLLING MACHINE TENDER) WBC 9.5 3.5 - 10.5 x10(9)/L 05/18/2024 1:59 PM [facility] RBC 4.78 3.90 - 5.03 x10(12)/L 05/18/2024 1:59 PM [facility] Hemoglobin 10.3(L) 12.0 - 15.5 g/dL 05/18/2024 1:59 PM [facility] HCT 34.1(L) 34.9 - 44.5 % 05/18/2024 1:59 PM [facility] MCV 71.3(L) 80.0 - 100.0 fL 05/18/2024 1:59 PM [facility] MCH 21.5(L) 27.6 - 33.3 pg 05/18/2024 1:59 PM [facility] MCHC 30.2(L) 31.5 - 35.2 g/dL 05/18/2024 1:59 PM [facility] RDW 21.8(H) 11.9 - 15.5 % 05/18/2024 1:59 PM [facility] Platelets 232 150 - 450 x10(9)/L 05/18/2024 1:59 PM [facility] Automated NRBC 0 <=0 /100 WBC 05/18/2024 1:59 PM [facility] Blood Venipuncture / Unknown 05/18/2024 1:49 PM GUM ROLLING MACHINE TENDER 05/18/2024 1:54 PM GUM ROLLING MACHINE TENDER Babita Jarquin MD LAB_[address] [place] [address], [facility] * (ABNORMAL) TP/Crea Ratio, Urine (05/18/2024 1:37 PM GUM ROLLING MACHINE TENDER) TP/Creat Ratio, Urine Random 0.08 0.00 - 0.20 05/18/2024 5:35 PM [facility] Total Protein, Urine, Random 16(H) 0 - 14 mg/dL 05/18/2024 5:35 PM [facility] Comment:The overall interpre tation for this test is normal (the ratio is within the reference interval). Individual test components may fall outside the reference interval but still give a normal overall test result. Creatinine, Urine, Random 208 >20 mg/dL mg/dL 05/18/2024 5:35 PM [facility] Urine URINE SPECIMEN COLLECTION, CLEAN CATCH / Unknown Non-blood Collection / Unknown 05/18/2024 1:37 PM GUM ROLLING MACHINE TENDER 05/18/2024 1:41 PM GUM ROLLING MACHINE TENDER Narrative [facility] - 05/18/2024 5:35 PM GUM ROLLING MACHINE TENDER Low urine creatinine values coupled with low urine protein values can artifactually increase the urine protein/creatinine results. Correlate results of ratio with creatinine results. Ana Laura Sutton MD LAB_[id number] [place] [address] * (ABNORMAL) UA Conditional UC: Clean Catch (05/18/2024 1:37 PM GUM ROLLING MACHINE TENDER) Urine Culture Comment 05/18/2024 2:26 PM [facility] Urine Color Yellow 05/18/2024 2:26 PM [facility] Urine Clarity Clear Clear 05/18/2024 2:26 PM [facility] Specific [place], Urine 1.028 <1.030 05/18/2024 2:26 PM [facility] PH Urine 5.5 5.0 - 8.0 05/18/2024 2:26 PM [facility] Protein, Urine Qual (mg/dL) 10 Negative, 10 , 20 05/18/2024 2:26 PM [facility] Glucose Urine Qual (mg/dL) Normal (Negative) Normal (Negative), 30 , 50 05/18/2024 2:26 PM [facility] Ketones, Urine (mg/dL) Negative Negative, Trace 05/18/2024 2:26 PM [facility] Urobilinogen, Urine (EU/dL) Normal (Negative) Normal (Negative) 05/18/2024 2:26 PM [facility] Bilirubin Urine (mg/dL) Negative Negative 05/18/2024 2:26 PM [facility] Blood, Urine (mg/dL) 0.50 (Moderate)(A) Negative, 0.03 (Trace) 05/18/2024 2:26 PM [facility] Nitrite Urine Negative Negative 05/18/2024 2:26 PM [facility] Leukocyte Esterase, Urine (Marcos/uL) Negative Negative, 25 (Trace) 05/18/2024 2:26 PM [facility] Red Blood Cells 25(H) 0 - 3 /HPF 05/18/2024 2:26 PM GUM ROLLING MACHINE TENDER [facility] White Blood Cells 5 0 - 5 /HPF 05/18/2024 2:26 PM [facility] Squamous Epithelial Cells Occasional None Seen, Occasional, Few /HPF 05/18/2024 2:26 PM [facility] Mucus Present(A) None Seen /HPF 05/18/2024 2:26 PM GUM ROLLING MACHINE TENDER [facility] Source Clean Catch 05/18/2024 2:26 PM [facility] Urine URINE SPECIMEN COLLECTION, CLEAN CATCH / Unknown Non-blood Collection / Unknown 05/18/2024 1:37 PM GUM ROLLING MACHINE TENDER 05/18/2024 1:41 PM GUM ROLLING MACHINE TENDER Narrative [facility] - 05/18/2024 2:26 PM GUM ROLLING MACHINE TENDER The qualitative interpretive guidance provided (e.g., small, moderate, large) is intended to aid in quantitative result interpretation. It is not itself an FDA-cleared test result. Babita Jarquin MD LAB_1 Performing Organization Address City/State/[facility] Co de Phone Number [address] documented in this encounter Visit Diagnoses Diagnosis Preeclampsia in period- Primary Abdominal pain, left lower quadrant Hypertension, unspecified type (HRC) Gestational hypertension without significant proteinuria, Pre-eclampsia, Mild or unspecified pre-eclampsia, condition or complication * Plan of Care - Tara Landers RN - 05/21/2024 7:27 AM CST Problem: Hypertensive Disorders in Goal: Maternal- Stabilization Outcome: Progressing [facility] Plan of Care Note Assessment: Post Magnesium therapy for Pre E with severe features. Plan: Continue to observe/intervene/teach as needed. Subjective: Pt states only dull HIGHTOWER, declines offered pain medication. Objective: VSS, BPs 106/79 and 105/76. DTR diminished, no clonus. Pt reports sleeping well. UAL voiding independently. Care shift [id number] ROLLING MACHINE TENDER * Plan of Care - Emiliano Membreno RN - 05/20/2024 11:30 PM CST [facility] Plan of Care Note Assessment: readmit for pre-e with SF; s/p magnesium Plan: assess and intervene as needed Subjective: c/o headache; tylenol given, headache resolved Objective: up to the toilet independently, voiding adequately. Denies n/v,cp,sob, RUQ pain, vision changes. medicated per JUL. Resting between cares. No family at bedside. --- End of Report --- ROLLING MACHINE TENDER * Plan of Care - Franchesca Moser RN - 05/20/2024 12:34 PM CST [facility] Plan of Care Note Assessment: Re admit for severe PRE -E with severe features status Plan: Will remain stable Subjective: Given nifedipine and will b e giving HCTZ. Will check again after 1430. Objective: Continue to assess and monitor. Gave an additional Procardia 30 MG at 1321. ROLLING MACHINE TENDER * Plan of Care - Magnolia Monet RN - 05/20/2024 7:05 AM CST [facility] Plan of Care Note Assessment: day 8/post magnesium sulfate Plan: continue to monitor vitals, RUQ pains, dizziness, light headedness, vision changes, headache,sob or any chest discomforts. Subjective: I am fine right now, no pains or headache and I don't need pain medication. Objective: Patient is resting in bed, vitals are stable, abdomen soft with active bowel sounds, fundus 4 blow the umbilicus, bleeding scant like mensis. Ambulating in dependently in room, denies dizziness, light headedness, blurred vision, headache or RUQ pains. Voiding spontaneously without problems. C/o of breast leaking milk, breast pump offered, says does not want to use it right away, left in room for whenever she is ready. Patient slept throughout the shift, declined medications offered, wanted to know if she could be discharge today, told to wait and ask the MD this AM. ROLLING MACHINE TENDER * Plan of Care - Ebenezer Robertson RN - 05/19/2024 7:55 PM CST [facility] Plan of Care Note Assessment: Stable Vag s/p MgSO4 Plan: Routine cares, pain control, MgSO4 monitoring Subjective: I don't have any pain Objective: VSS. Assessment WNL. Maternal hydration and skin to skin encouraged. Per provider order,restarted MgSO4 @ 1815 and stopped at 2145. Denies SOB, chest pain, vision changes, RUQ pain, dizziness, lightheadedness. Declined pain medications. Reflexes 0, no clonus. Ambulating and voiding; momresting comfortably. ROLLING MACHINE TENDER * Plan of Care - Sunita Hu RN - 05/19/2024 8:50 AM CST [facility] Hospital Plan of Care Note Assessment: , readmit, Pre-E with severe features on MgSO4 Plan: monitor pain, monitor S/S PreE, MgSO4 Subjective: I feel groggy Objective: VSS, headache resolved with pain medication, reported difficulty focusing and ULQ pain, denies SOB, no lower extremity edema, reflexes +1, no clonus, ambulating with standby assist due to lethargy, OB notified as charted due to lethargy and MgO4 discontinued as charted, voiding independently with adequate urine output, small, formed BM. Since MgSO4 discontinued Pt reports she now feelsso much better. --- End of Report --- ROLLING MACHINE TENDER * Plan of Care - Brea Crabtree RN - 05/19/2024 1:38 AM CST [facility] Plan of Care Note Assessment: . delivered on 05/11/2024. Elevated BP in ED Plan: Magnesium malignance 2g infusing. Subjective: I am feeling so much better than when I first got here. Objective: Assumed cares at 2315. Patient stated she is less foggy, more alert and knows what is going on now. Denies vision changes, dizziness, headache, RUQ pain. Drowsy but arousable to voice. VSS. Magnesium checks WDL. Patient calls appropriately for bathroom assistance. Report given to oncoming RN. ROLLING MACHINE TENDER * Plan of Care - Prabha Hernandez RN - 05/18/2024 11:26 PM CST [facility] Plan of Care Note Assessment: . severe range BP's transferred from ED Plan: Transfer to PP for cont mag infusion, maternal wellbeing Subjective: I feel so much better Objective: Pt put in triage and BP taken, WNL. Transferred to L&D due to severe range BP's. Provider in the room. Per provider labs WNL, mag load pt and admit for observation. Pt amendable to plan. Pt declines headache, blurry vision, RUQ pain, shortness of breath, chest pain, and swelling. Magload given, see MAR. Pt reports feeling drowsy after load. Maintenance dose started, see MAR. Reflexes WNL and no clonus present. Report given to oncchristo RN. ROLLING MACHINE TENDER * Plan of Care - Brea Crabtree RN - 05/18/2024 11:20 PM CST [facility] Nursing Transfer Note Admission Date/Time: 05/18/2024 4:13 PM Time of transfer: 2330 Room number: 2041 [facility] Total Score: 0 Valuables/belongings sent with patient?: Yes Home meds being used in hospital sent with patient?: N/A Transported by: Wheelchair General condition of patient at time of transfer: stable, magnesium maintenance infusing. Family notified of transfer: Yes Patient brought down to from triage. ROLLING MACHINE TENDER * Triage Assessment Note - Dottie Robin RN - 05/18/2024 11:32 AM GUM ROLLING MACHINE TENDER Chief complaint: Abdominal Pain Symptoms/background/relevant history (narrative): Pt states she has had abdominal pain since last night. Pt had a baby 05/11, pt states that was her 5th delivery and her bleeding is normal. What is most important to you about your ER visit today? Address the pain Initial falls risk factors: Mobility Location and Intervention: Triage: Non-slip food service agent footwear ROLLING MACHINE TENDER documented in this encounter Administered Medications Inactive Administered Medications - up to 3 most recent administrations Medication Order MAR Action Action Date Dose Rate Site acetaminophen (TYLENOL) tablet 1,000 mg 1,000 mg, Oral, ONCE, On Thu05/18/24 at 1645, For 1 dose Given 05/18/2024 4:47 PM GUM ROLLING MACHINE TENDER 1,000 mg acetaminophen (TYLENOL) tablet 325-650 mg 325-650 mg, Oral, Q4H PRN, Pain, Starting on Thu05/18/24 at 2042, Until 05/21/24 at 1632, Give acetaminophen first for mild pain then use NSAIDS if acetaminophen is not effective and pain is still mild. Acetaminophen or NSAIDs may be given alternating with each other and with other pain medications as adjunct for pain relief. Given 05/21/2024 10:50 AM GUM ROLLING MACHINE TENDER 650 mg Given 05/20/2024 5:38 PM GUM ROLLING MACHINE TENDER 650 mg Given 05/20/2024 7:55 AM GUM ROLLING MACHINE TENDER 650 mg bisacodyl (DULCOLAX) rectal suppository 10 mg 10 mg, Rectal, DAILY PRN, Constipation, No stool in the last 3 days, Starting on Thu05/18/24 at 2042, Until 05/21/24 at 1632, Cumulative bowel medication orders. Administer based on medications available on JUL. If no stool in last day start Senna BID PRN no stool, if no stool in last 2 days add Miralax DAILY PRN no stool, if no stool in last 3 days add bisacodyl suppository DAILY PRN until patient stools. When patient stools, stop giving PRN meds and continue monitoring for bowel activity. When no stools X 1 day, begin regimen again until patient stools. Do not give if Absolute Neutrophil Count (ANC) is 1 k/cmm or less OR platelet count is 50 k/cmm or less. calcium gluconate injection 1 g 1 g, Intravenous, ONCE PRN, Other, Magnesium Reversal, Starting on Thu05/18/24 at 2032, Until 05/21/24 at 1632, For 1 dose, Give IV push over 5 minutes diphenhydrAMINE (BENADRYL) capsule 25 mg 25 mg, Oral, Q4H PRN, Itching, Starting on Thu05/18/24 at 2042, Until 05/21/24 at 1632, Do not exceed 300 mg in 24 hours diphenhydrAMINE (BENADRYL) injection 12.5-25 mg 12.5-25 mg, Intravenous, Q4H PRN, Itching, And unable to tolerate PO, Starting on Thu05/18/24 at 2042, Until 05/21/24 at 1632, Give if itching or unable to tolerate PO Do not exceed 300 mg in 24 hours hydroCHLOROthiazide (ORETIC) tablet 25 mg 25 mg, Oral, DAILY, First dose on Thu05/20/24 at 1300, Until Discontinued Given 05/21/2024 8:22 AM GUM ROLLING MACHINE TENDER 25 mg Given 05/20/2024 12:47 PM GUM ROLLING MACHINE TENDER 25 mg ibuprofen (MOTRIN) tablet 600 mg 600 mg, Oral, Q6H PRN, Pain, Starting on Thu05/18/24 at 204, Until 05/21/24 at 1632, Give acetaminophen first for mild pain then use NSAIDS if acetaminophen is not effective and pain is still mild. Acetaminophen or NSAIDs may be given WITH other pain medications as adjunct for pain relief. Given 05/21/2024 11:07 AM GUM ROLLING MACHINE TENDER 600 mg magnesium sulfate 20 g in water 500 mL premade infusion 2 g/hr (50 mL/hr), Intravenous, CONTINUOUS, Starting on Thu05/18/24 at 2100, Until Henrietta 05/19/24 at 1714, 2g/hr. Start after loading dose. Interrupt infusion PRN toxicity. Magnesium Sulfate Vitals frequency: Loading Dose: Every 15 min x 1 hour Rate Changes: Every 15 min x 1 hour Maintenance: Every 1 hour Post infusion: Every hour x2, then Every 4 hours x 24 hours Assess reflexes and clonus with vital signs. HIGH ALERT medication Rate/Dose Verify 05/19/2024 1:00 PM GUM ROLLING MACHINE TENDER 2 g/hr 50 mL/hr Rate/Dose Verify 05/19/2024 12:18 PM GUM ROLLING MACHINE TENDER 2 g/hr 50 mL/ hr Rate/Dose Verify 05/19/2024 11:03 AM GUM ROLLING MACHINE TENDER 2 g/hr 50 mL/ hr magnesium sulfate 20 g in water 500 mL premade infusion 2 g/hr (50 mL/hr), Intravenous, CONTINUOUS, Starting on Thu05/19/24 at 1800, Until Thu05/19/24 at 2100, For 3 hours, 2g/hr. Start after loading dose. Interrupt infusion PRN toxicity. Magnesium Sulfate Vitals frequency: Loading Dose: Every 15 min x 1 hour Rate Changes: Every 15 min x 1 hour Maintenance: Every 1 hour Post infusion: Every hour x2, then Every 4 hours x 24 hours Assess reflexes and clonus with vital signs. HIGH ALERT medication Rate/Dose Verify 05/19/2024 9:45 PM GUM ROLLING MACHINE TENDER 2 g/hr 50 mL/hr Rate/Dose Verify 05/19/2024 9:00 PM GUM ROLLING MACHINE TENDER 2 g/hr 50 mL/h r Rate/Dose Verify 05/19/2024 8:00 PM GUM ROLLING MACHINE TENDER 2 g/hr 50 mL/h r magnesium sulfate 4 g in water 100 mL premade IVPB 4 g, Intravenous, Administer over 20 Minutes, ONCE, On Thu05/18/24 at 2100, For 1 dose, Monitor per protocol during administration. Magnesium Sulfate Vitals frequency: Loading Dose: Every 15 min x 1 hour Rate Changes: Every 15 min x 1 hour Maintenance: Every 1 hour Post infusion: Every hour x2, then Every 4 hours x 24 hours Assess reflexes and clonus before and after Magnesium Sulfate loading dose or any increase in Magnesium Sulfate, then every hour until stabilized then every four hours Started 05/18/2024 8:53 PM GUM ROLLING MACHINE TENDER 4 g 300 mL/hr NIFEdipine (PROCARDIA) capsule 10 mg 10 mg, Oral, ONCE, On Thu05/18/24 at 2000, For 1 dose Given 05/18/2024 7:51 PM GUM ROLLING MACHINE TENDER 10 mg NIFEdipine XL (PROCARDIA XL) 24 hour release tablet 30 mg 30 mg, Oral, DAILY, First dose on Thu05/20/24 at 1015, Until Discontinued, Tablet/Capsule should be swallowed whole. Given 05/20/2024 10:07 AM GUM ROLLING MACHINE TENDER 30 mg NIFEdipine XL (PROCARDIA XL) 24 hour release tablet 30 mg 30 mg, Oral, ONCE, On Thu05/20/24 at 1300, For 1 dose, Tablet/Capsule should be swallowed whole. Given 05/20/2024 1:21 PM GUM ROLLING MACHINE TENDER 30 mg NIFEdipine XL (PROCARDIA XL) 24 hour release tablet 60 mg 60 mg, Oral, DAILY, First dose (after last modification) on 05/21/24 at 0800, Until Discontinued, Tablet/Capsule should be swallowed whole. Given 05/21/2024 8:22 AM GUM ROLLING MACHINE TENDER 60 mg polyethylene glycol (MIRALAX) oral powder 17 g 17 g, Oral, DAILY PRN, Constipation, No stool in the last 2 days, Starting on Thu05/18/24 at 2042, Until 05/21/24 at 1632, Cumulative bowel medication orders. Administer based on medications available on JUL. If no stool in last day start Senna BID PRN no stool, if no stool in last 2 days add Miralax DAILY PRN no stool, if no stool in last 3 days add bisacodyl suppository DAILY PRN until patient stools. When patient stools, stop giving PRN meds and continue monitoring for bowel activity. When no stools X 1 day, begin regimen again until patient stools. Given 05/20/2024 7:56 AM GUM ROLLING MACHINE TENDER 17 g senna (SENOKOT) tablet 2 Tablet 2 Tablet, Oral, BID PRN, Constipation, No stool in the last day, Starting on Thu05/18/24 at 2042, Until 05/21/24 at 1632, Cumulative bowel medication orders. Administer based on medications available on JUL. If no stool in last day start Senna BID PRN no stool, if no stool in last 2 days add Miralax DAILY PRN no stool, if no stool in last 3 days add bisacodyl suppository DAILY PRN until patient stools. When patient stools, stop giving PRN meds and continue monitoring for bowel activity. When no stools X 1 day, begin regimen again until patient stools. Given 05/20/2024 7:56 AM GUM ROLLING MACHINE TENDER 2 Tablets Given 05/19/2024 9:15 AM GUM ROLLING MACHINE TENDER 2 Tablets simethicone (MYLICON) chewable tablet 80 mg 80 mg, Oral, TID PRN, Gas Pain, Starting on Thu05/18/24 at 2042, Until 05/21/24 at 1632, Gas pain or bloating. Given 05/20/2024 7:56 AM GUM ROLLING MACHINE TENDER 80 mg sodium chloride 0.9% infusion Intravenous, at 25 mL/hr, CONTINUOUS, Starting on Thu05/18/24 at 2045 Rate/Dose Verify 05/19/2024 1:00 PM GUM ROLLING MACHINE TENDER 25 mL/hr Rate/Dose Verify 05/19/2024 12:18 PM GUM ROLLING MACHINE TENDER 25 mL/ hr Rate/Dose Verify 05/19/2024 11:03 AM GUM ROLLING MACHINE TENDER 25 mL/ hr documented in this encounter Active and Recently Administered Medications Times are shown in GUM ROLLING MACHINE TENDER. Scheduled Medication Order 05/19/2024 05/20/2024 05/21/2024 hydroCHLOROthiazide (ORETIC) tablet 25 mg 25 mg, Oral, DAILY, First dose on Thu05/20/24 at 1300, Until Discontinued 1247 (Given - Provider: Franchesca Moser RN) 0822 (Given - Provider: Franchesca Moser RN) NIFEdipine XL (PROCARDIA XL) 24 hour release tablet 30 mg (CANCELED) 30 mg, Oral, DAILY, First dose on Thu05/20/24 at 1015, Until Discontinued, Tablet/Capsule should be swallowed whole. 1007 (Given - Provider: Franchesca Moser RN) NIFEdipine XL (PROCARDIA XL) 24 hour release tablet 30 mg (COMPLETED) 30 mg, Oral, ONCE, On Thu05/20/24 at 1300, For 1 dose, Tablet/Capsule should be swallowed whole. 1321 (Given - Provider: Franchesca Moser RN) NIFEdipine XL (PROCARDIA XL) 24 hour release tablet 60 mg 60 mg, Oral, DAILY, First dose (after last modification) on Thu05/21/24 at 0800, Until Discontinued, Tablet/Capsule should be swallowed whole. 0822 (Given - Provid er: Franchesca Moser RN) Continuous Medication Order 05/19/2024 05/20/2024 05/21/2024 magnesium sulfate 20 g in water 500 mL premade infusion (CANCELED) 2 g/hr (50 mL/hr), Intravenous, CONTINUOUS, Starting on Thu05/18/24 at 2100, Until Thu05/19/24 at 1714, 2g/hr. Start after loading dose. Interrupt infusion PRN toxicity. Magnesium Sulfate Vitals frequency: Loading Dose: Every 15 min x 1 hour Rate Changes: Every 15 min x 1 hour Maintenance: Every 1 hour Post infusion: Every hour x2, then Every 4 hours x 24 hours Assess reflexes and clonus with vital signs. HIGH ALERT medication 0645 (Subsequent Bag - Provider: Brea Crabtree RN)0721 (Rate/Dose Verify - Provider: Sunita Hu RN - Comment: verified with PATRICIA Guidry)0816 (Rate/Dose Verify - Provider: Sunita Hu RN)0905 (Rate/Dose Verify - Provider: Sunita Hu RN)1007 (Rate/Dose Verify - Provider: Sunita Hu RN)1103 (Rate/Dose Verify - Provider: Sunita Hu RN)1218 (Rate/Dose Verify - Provider: Sunita Hu RN)1300 (Rate/Dose Verify - Provider: Sunita Hu RN)1314 (Stopped - Provider: Sunita Hu RN - Comment: Per MD Gretchen Santos verbal order. MD in room.) magnesium sulfate 20 g in water 500 mL premade infusion () 2 g/hr (50 mL/hr), Intravenous, CONTINUOUS, Starting on Thu05/19/24 at 1800, Until Thu05/19/24 at 2100, For 3 hours, 2g/hr. Start after loading dose. Interrupt infusion PRN toxicity. Magnesium Sulfate Vitals frequency: Loading Dose: Every 15 min x 1 hour Rate Changes: Every 15 min x 1 hour Maintenance: Every 1 hour Post infusion: Every hour x2, then Every 4 hours x 24 hours Assess reflexes and clonus with vital signs. HIGH ALERT medication 1815 (Started - Provider: Ebenezer Robertson RN)1900 (Rate/Dose Verify - Provider: Ebenezer Robertson RN)2000 (Rate/Dose Verify - Provider: Ebenezer Robertson RN)2100 (Rate/Dose Verify - Provider: Ebenezer Robertson RN)2145 (Rate/Dose Verify - Provider: Ebenezer Robertson RN) sodium chloride 0.9% infusion (CANCELED) Intravenous, at 25 mL/hr, CONTINUOUS, Starting on Thu05/18/24 at 2045 0700 (Rate/Dose Verify - Provider: Brea Crabtree RN)0722 (Rate/Dose Verify - Provider: Sunita Hu RN - Comment: Rate.dose verified with PATRICIA Guidry)0816 (Rate/Dose Verify - Provider: Sunita Hu RN)0905 (Rate/Dose Verify - Provider: Sunita Hu RN)1008 (Rate/Dose Verify - Provider: Sunita Hu RN)1103 (Rate/Dose Verify - Provider: Sunita Hu RN)1218 (Rate/Dose Verify - Provider: Sunita Hu RN)1300 (Rate/Dose Verify - Provider: Sunita Hu RN)1314 (Stopped - Provider: Sunita Hu RN - Comment: Per MD verbal order.) PRN Medication Order 05/19/2024 05/20/2024 05/21/2024 acetaminophen (TYLENOL) tablet 325-650 mg 325-650 mg, Oral, Q4H PRN, Pain, Starting on Thu05/18/24 at 2042, Until 05/21/24 at 1632, Give acetaminophen first for mild pain then use NSAIDS if acetaminophen is not effective and pain is still mild. Acetaminophen or NSAIDs may be given alternating with each other and with other pain medications as adjunct for pain relief. 0824 (Given - Provider: Sunita Hu RN) 0755 (Given - Provider: Franchesca Moser, PATRICIA)1738 (Given - Provider: Emiliano Membreno, PATRICIA) 1050 (Given - Provider: Franchesca Moser, PATRICIA) bisacodyl (DULCOLAX) rectal suppository 10 mg(Linked Group 1) 10 mg, Rectal, DAILY PRN, Constipation, No stool in the last 3 days, Starting on Thu05/18/24 at 2042, Until 05/21/24 at 1632, Cumulative bowel medication orders. Administer based on medications available on JUL. If no stool in last day start Senna BID PRN no stool, if no stool in last 2 days add Miralax DAILY PRN no stool, if no stool in last 3 days add bisacodyl suppository DAILY PRN until patient stools. When patient stools, stop giving PRN meds and continue monitoring for bowel activity. When no stools X 1 day, begin regimen again until patient stools. Do not give if Absolute Neutrophil Count (ANC) is 1 k/cmm or less OR platelet count is 50 k/cmm or less. calcium gluconate injection 1 g 1 g, Intravenous, ONCE PRN, Other, Magnesium Reversal, Starting on Thu05/18/24 at 2031, Until 05/21/24 at 1632, For 1 dose, Give IV push over 5 minutes diphenhydrAMINE (BENADRYL) capsule 25 mg(Linked Group 2) 25 mg, Oral, Q4H PRN, Itching, Starting on Thu05/18/24 at 2041, Until 05/21/24 at 1632, Do not exceed 300 mg in 24 hours diphenhydrAMINE (BENADRYL) injection 12.5-25 mg(Linked Group 2) 12.5-25 mg, Intravenous, Q4H PRN, Itching, And unable to tolerate PO, Starting on Thu05/18/24 at 2041, Until 05/21/24 at 1632, Give if itching or unable to tolerate PO Do not exceed 300 mg in 24 hours ibuprofen (MOTRIN) tablet 600 mg 600 mg, Oral, Q6H PRN, Pain, Starting on Thu05/18/24 at 2041, Until 05/21/24 at 1632, Give acetaminophen first for mild pain then use NSAIDS if acetaminophen is not effective and pain is still mild. Acetaminophen or NSAIDs may be given WITH other pain medications as adjunct for pain relief. 1107 (Given - Provider: Franchesca Moser RN) lanolin hydrous ointment Topical, Q1H PRN, Nipple Discomfort, Starting on Thu05/18/24 at 2041, Apply to nipples. lidocaine (UROJET) 2 % gel prefilled syringe Urethral, ONCE PRN, Local Anesthetic, urinary catheter insertion (indwelling or straight), Starting on Thu05/18/24 at 2041, For 1 dose oxytocin (PITOCIN) 30 units in NaCl 0.9% 500 mL POST DELIVERY Intravenous, Administer over 230 Minutes, PRN PER PARAMETERS, Post Delivery, Post Delivery, Starting on Thu05/18/24 at 2041, POST DELIVERY loading dose and maintenance Administer 333 mL/hr x 30 min (total dose 10 units); followed by maintenance of 100 mL/hr x 3 hours 20 min (total dose 20 units and a cumulative dose of 30 units of oxytocin) Choose Oxytocin-Delivery in IV smart pump. HIGH ALERT medication HAZARDOUS DRUG Preparation: Single glove, gown; face mask optional Administration: Single glove oxytocin (PITOCIN) injection 10 Units 10 Units, Intramuscular, ONCE PRN, Other, after placenta, Starting on Thu05/18/24 at 2042, Until 05/21/24 at 1632, For 1 dose, After placenta unless otherwise directed by practitioner. Give if no IV access. HAZARDOUS DRUG Preparation: Single glove, gown; face mask optional Administration: Single glove polyethylene glycol (MIRALAX) oral powder 17 g(Linked Group 1) 17 g, Oral, DAILY PRN, Constipation, No stool in the last 2 days, Starting on Thu05/18/24 at 204, Until 05/21/24 at 1632, Cumulative bowel medication orders. Administer based on medications available on JUL. If no stool in last day start Senna BID PRN no stool, if no stool in last 2 days add Miralax DAILY PRN no stool, if no stool in last 3 days add bisacodyl suppository DAILY PRN until patient stools. When patient stools, stop giving PRN meds and continue monitoring for bowel activity. When no stools X 1 day, begin regimen again until patient stools. 0756 (Given - Provider: Franchesca Moser RN) senna (SENOKOT) tablet 2 Tablet(Linked Group 1) 2 Tablet, Oral, BID PRN, Constipation, No stool in the last day, Starting on Thu05/18/24 at 204, Until 05/21/24 at 1632, Cumulative bowel medication orders. Administer based on medications available on JUL. If no stool in last day start Senna BID PRN no stool, if no stool in last 2 days add Miralax DAILY PRN no stool, if no stool in last 3 days add bisacodyl suppository DAILY PRN until patient stools. When patient stools, stop giving PRN meds and continue monitoring for bowel activity. When no stools X 1 day, begin regimen again until patient stools. 0915 (Given - Provider: Sunita Hu RN) 0756 (Given - Provider: Franchesca Moser RN) simethicone (MYLICON) chewable tablet 80 mg 80 mg, Oral, TID PRN, Gas Pain, Starting on Thu05/18/24 at 2042, Until 05/21/24 at 1632, Gas pain or bloating. 0756 (Given - Provider: Franchesca Moser RN) sodium chloride 0.9% injection 3-5 mL 3-5 mL, Intravenous, PRN AFTER EVERY IV MEDICATION & LAB DRAW, Line Patency, Starting on Thu05/18/24 at 2041, Until 05/21/24 at 1632, May discontinue IV when no longer requiring IV medications duncan luzma topical Topical, Q1H PRN, Perineal Discomfort, Starting on Thu05/18/24 at 2041, Apply topically to perineum. Linked Groups Order Group 1: senna (SENOKOT) tablet 2 TabletJump to med 2 Tablet, Oral, BID PRN, Constipation, No stool in the last day, Starting on Thu05/18/24 at 2041, Until 05/21/24 at 1632, Cumulative bowel medication orders. Administer based on medications available on JUL. If no stool in last day start Senna BID PRN no stool, if no stool in last 2 days add Miralax DAILY PRN no stool, if no stool in last 3 days add bisacodyl suppository DAILY PRN until patient stools. When patient stools, stop giving PRN meds and continue monitoring for bowel activity. When no stools X 1 day, begin regimen again until patient stools. And polyethylene glycol (MIRALAX) oral powder 17 gJump to med 17 g, Oral, DAILY PRN, Constipation, No stool in the last 2 days, Starting on Thu05/18/24 at 2041, Until 05/21/24 at 1632, Cumulative bowel medication orders. Administer based on medications available on JUL. If no stool in last day start Senna BID PRN no stool, if no stool in last 2 days add Miralax DAILY PRN no stool, if no stool in last 3 days add bisacodyl suppository DAILY PRN until patient stools. When patient stools, stop giving PRN meds and continue monitoring for bowel activity. When no stools X 1 day, begin regimen again until patient stools. And bisacodyl (DULCOLAX) rectal suppository 10 mgJump to med 10 mg, Rectal, DAILY PRN, Constipation, No stool in the last 3 days, Starting on Thu05/18/24 at 204, Until 05/21/24 at 1632, Cumulative bowel medication orders. Administer based on medications available on MAR. If no stool in last day start Senna BID PRN no stool, if no stool in last 2 days add Miralax DAILY PRN no stool, if no stool in last 3 days add bisacodyl suppository DAILY PRN until patient stools. When patient stools, stop giving PRN meds and continue monitoring for bowel activity. When no stools X 1 day, begin regimen again until patient stools. Do not give if Absolute Neutrophil Count (ANC) is 1 k/cmm or less OR platelet count is 50 k/cmm or less. Group 2: diphenhydrAMINE (BENADRYL) capsule 25 mgJump to med 25 mg, Oral, Q4H PRN, Itching, Starting on Thu05/18/24 at 2041, Until 05/21/24 at 1632, Do not exceed 300 mg in 24 hours Or diphenhydrAMINE (BENADRYL) injection 12.5-25 mgJump to med 12.5-25 mg, Intravenous, Q4H PRN, Itching, And unable to tolerate PO, Starting on Thu05/18/24 at 2041, Until 05/21/24 at 1632, Give if itching or unable to tolerate PO Do not exceed 300 mg in 24 hours documented in this encounter Care Teams Local [employer] Truck Driver Relationship Specialty Start Date End Date No Primary/Referring, Phy PCP - General 06/29/23 documented as of this encounter
--- OUTSIDE RECORDS SUMMARY | 2024-06-28 10:11 | XMS_ITS | Encounter Summary ---
Author Organization [facility] Address [address] [address] Care Team Providers Care Poly Operator Name Role Phone No Primary/Referring, Phy Primary Care Provider Unavailable Encounter Details Date Type Department Care Team (Late st Contact Info) Description 05/23/2024 E-Visit [facility] OB Ultrasound [address] [place] [address] Mychart, [place] [address] Social History Tobacco Use Types Packs/Day Years Used Date Smoking Tobacco: Never Smokeless Tobacco: Never Alcohol Use Standard Drinks/Week Comments Not Currently 0 (1 standard drink = 0.6 oz pur e alcohol) [facility] Utilities Answer Date Recorded In the past 12 months has e [employer], gas, oil, or water [employer] [place] threatened to shut off services in your [...] any time in the past 12 m [facility], were you homeless or living in a senior care (including now)? No 05/19/2024 Depression Answer Date [...] on filedocumented in this encounter Care Teams Poly Operator Relationship Specialty Start Date End Date No Primary/Referring, Phy PCP - General 06/29/23 documented as of this encounter
[2024-06-28 10:18] VITALS: BP 143/92; PULSE 71; RESP 18; TEMP 36.6; O2SAT 98; BMI 23.6
--- NOTE | 2024-06-28 11:07 | ED_ITS ---
HPI - Headache General Chief Complaint: Headache/Migraine Stated Complaint: Headache, sore throat Time Seen by Provider: 06/28/24 10:30 History of Present Illness HPI Narrative: This 29-year-old female comes in reporting headache and dental pain. She states that she has a history of recurrent headaches and seemed to have more episodes of these when she was . She states that she did also have dental pain on various occasions. She reports pain in the right upper row of teeth posteriorly. She has been taking ibuprofen without much relief. She does have an appointment with the dentist but it is not for a few weeks. Related Data Previous Rx's ?Medication ?Instructions ?Recorded amoxicillin 500 mg capsule 500 mg PO TID 10 days #30 caps 06/28/24 ketorolac 10 mg tablet 10 mg PO Q8H 5 days #15 tabs 06/28/24 methylprednisolone 4 mg tablets in See Rx Instructions PO .COMPLEX 06/28/24 a dose pack (Medrol (Roshan)) #21 ea Allergies Allergy/AdvReac Type Severity Reaction Status Date / Time No Known Drug Allergies Allergy Verified 06/17/24 13:36 Review of Systems Status of ROS: Reports: 10 or more systems reviewed and unremarkable except as noted in History and below Narrative: Constitutional: No fevers, no weight gain or loss. Eyes: No discharge. No vision changes. HENT: No congestion, no sore throat, no ear pain. Cardiovascular: No chest pain, no palpitations. Respiratory: No shortness of breath, no wheezes, no cough. Gastrointestinal: No abdominal pain, no vomiting, no diarrhea. Genitourinary: No dysuria, no hematuria. Musculoskeletal: Normal range of motion. Skin: No rashes, no pruritis. Neurological: No dizziness, weakness, sensory change, speech change. Endo/Heme/Allergies: No bruising or bleeding. No polydipsia. Pysch: no suicidality, no anxiety, no insomnia. All other systems reviewed and are negative. [facility] Medical History (Updated 06/28/24 @ 11:10 by Russel Lemus MD) Anemia ?D64.9 - Anemia, unspecified (ICD-10) Surgical History (Updated 06/20/24 @ 22:51 by Rosalba Williamson CNP) history ?Z87.59 - Personal history of other complications of , childbirth and the puerperium (ICD-10) Social History Smoking Status: Never smoker How often do you have a drink containing alcohol: never AUDIT-C Alcohol total score: 0 Non-prescribed substance use: denies use Exam Narrative: Exam Narrative: Constitutional: Well-developed, well-nourished, no acute distress. HEENT: Normocephalic, atraumatic. Oropharynx shows no obvious sign of swelling or abscess. There is a fractured tooth in the right upper posterior row of teeth. Neck: Normal range of motion. Nontender. Supple. Heart: Regular. No murmurs. Normal rate. Intact distal pulses. Lungs: Clear to auscultation. No chest discomfort. No wheezes, rhonchi, or rales. Abdomen: Normal bowel sounds. Nontender. No rebound tenderness. Genitalia: Deferred. Back: No midline tenderness. Normal range of motion. Extremities: Normal range of motion. No injury. Skin: Intact. No rash. Warm. No erythema or pallor. Neurologic: No altered sensation. No weakness. Alert and oriented. Psychiatric: No suicidality. No anxiety or depression. No insomnia. Nursing notes and vitals signs are reviewed. Const: Vital Signs, click to edit/add: Vital Signs - 24 hr 06/28/24 10:18 Temperature 98 F Pulse Rate [Pulse Oximeter] 71 Respiratory Rate 18 Blood Pressure [Ri ght Upper Arm] 143/92 H Pulse Oximetry 98 Course Vital Signs Vital signs: Initial Vital Signs Temperature 98 F 06/28/24 10:18 Temperature Source Temporal Artery Scan 06/28/24 10:18 Pulse Rate 71 06/28/24 10:18 Respiratory Rate 18 06/28/24 10:18 Blood Pressure 143/92 H 06/28/24 10:18 Blood Pressure Mean 109 H 06/28/24 10:18 Pulse Oximetry 98 06/28/24 10:18 Vital Signs Temperature 98 F 06/28/24 10:18 Pulse Rate 71 06/28/24 10:18 Respiratory Rate 18 06/28/24 10:18 Blood Pressure 143/92 H 06/28/24 10:18 Pulse Oximetry 98 06/28/24 10:18 Temperature 98 F 06/28/24 10:18 Pulse Rate 71 06/28/24 10:18 Respiratory Rate 18 06/28/24 10:18 Blood Pressure 143/92 H 06/28/24 10:18 Pulse Oximetry 98 06/28/24 10:18 MDM - Headache MDM Narrative Medical decision making narrative: This patient comes in with dental pain that she reports is keeping her awake at night. She does have an appointment with a dentist but not for a few weeks from now. She also has a history of recurrent headaches. I did offer IV medicines to treat her symptoms and also offered a dental nerve block for temporary relief. She preferred to have medicines which I did prescribe for her. She received prescriptions for Toradol, amoxicillin, and Medrol Dosepak. Discharge Plan Discharge Clinical Impression: Headache, Pain, dental Patient Disposition: Home, Self-Care Condition: Stable Additional Instructions: Take medications as needed and indicated. Follow-up with dentist as scheduled or sooner if possible. Prescriptions: New amoxicillin 500 mg capsule 500 mg PO TID 10 Days Qty: 30 0RF ketorolac 10 mg tablet 10 mg PO Q8H 5 Days Qty: 15 0RF methylprednisolone [Medrol (Roshan)] 4 mg tablets,dose pack See Rx Instructions .ROUTE .COMPLEX Qty: 21 0RF Rx Instructions: orally per package directions Follow Up/Referrals: Provider,Not a Local [Primary Care Provider] - Stand Alone Forms: [employer] Info Instructions
--- OUTSIDE RECORDS SUMMARY | 2024-06-28 11:20 | XMS_ITS | Encounter Summary ---
Author Organization [employer] Address [address] [place] [address] Care Team Providers Care Assurance Analyst Name Role Phone No Primary/Referring, Phy Primary [...] Expiration Date Visits Re quested Visits Authorized [id number] 1 1 Encounter Details Date Type Department Care Team (Late st Contact Info) Description 05/18/2024 4:30 PM DIRECTOR STRATEGIC PLANNING Ancillary Procedure [address] [address] Social History Tobacco Use Types Packs/Day Years Used Date Smoking Tobacco: Never Smokeless Tobacco: Never Alcohol Use Standard Drinks/Week Comments Not Currently 0 (1 standard drink = 0.6 oz pur e alcohol) [facility] Utilities Answer Date Recorded In the past 12 months has [facility] [employer] gas, oil, or water [employer] threatened to shut off services in your [...] any time in the past 12 m [facility], were you homeless or living in a detention (including now)? No 05/19/2024 Depression Answer Date [...] WO IV CONT STAT 05/18/2024 4:39 PM DIRECTOR STRATEGIC PLANNING documented in this encounter Results * CT Abd Pelvis WO IV Cont (05/18/2024 4:39 PM DIRECTOR STRATEGIC PLANNING) Anatomical Region Laterality Modality Abdomen, Pelvis Computed Tomogra phy 05/18/2024 4:39 PM DIRECTOR STRATEGIC PLANNING Narrative 05/18/2024 6:28 PM DIRECTOR STRATEGIC PLANNING EXAM: CT ABD PELVIS WO IV CONT LOCATION: [facility] DATE: 05/18/2024 INDICATION: Left lower [...] CT ABD PELVIS WO IV CONT LOCATION: [facility] DATE: 05/18/2024 INDICATION: Left lower [...] on filedocumented in this encounter Care Teams Assurance Analyst Relationship Specialty Start Date End Date No Primary/Referring, Phy PCP - General 06/29/23 documented as of this encounter
--- OUTSIDE RECORDS SUMMARY | 2024-06-28 11:20 | XMS_ITS | Encounter Summary ---
Author Organization [facility] Address [address] [address] Care Team Providers Care Weapons Engineer Name Role Phone No Primary/Referring, Phy Primary Care Provider Unavailable Encounter Details Date Type Department Care Team (Late st Contact Info) Description 05/23/2024 E-Visit [facility] OB Ultrasound [address] [place] [address] Mychart, [place] [address] Social History Tobacco Use Types Packs/Day Years Used Date Smoking Tobacco: Never Smokeless Tobacco: Never Alcohol Use Standard Drinks/Week Comments Not Currently 0 (1 standard drink = 0.6 oz pur e alcohol) [facility] Utilities Answer Date Recorded In the past 12 months has e [employer], gas, oil, or water [employer] threatened to shut off services in your [...] any time in the past 12 m [facility], were you homeless or living [...] on filedocumented in this encounter Care Teams Weapons Engineer Relationship Specialty Start Date End Date No Primary/Referring, Phy PCP - General 06/29/23 documented as of this encounter
--- OUTSIDE RECORDS SUMMARY | 2024-06-28 11:20 | XMS_ITS | Encounter Summary ---
Author Organization [employer] Address [address] [place] [address] Care Team Providers Care Imaging Scheduler Name Role Phone No Primary/Referring, Phy Primary Care Provider Unavailable Reason for Visit * Reason Comments Surgery Scheduling Encounter Details Date Type Department Care Team ([facility] st Contact Info) Description 05/23/2024 Telephone [facility] [address] [place] [address] Nova Griffiths MD [address] [place], [place] [id number] Surgery Scheduling Social History Tobacco Use Types Packs/Day Years Used Date Smoking Tobacco: Never Smokeless Tobacco: Never Alcohol Use Standard Drinks/Week Comments Not Currently 0 (1 standard drink = 0.6 oz pur e alcohol) [facility] Utilities Answer Date Recorded In the past 12 months has [facility] [employer], oil, or water [employer] threatened to shut off services in your [...] any time in the past 12 m [facility], were you homeless or living in a correction (including now)? No 05/19/2024 Depression Answer Date Recor ded Last EPDS Total Score 6 10/02/2023 Last EPDS Self Harm Result 0-->never 10/01 Sex and Gender Information Value Date Recorded Sex Assigned at Not on file Gender Identity Not on file Sexual Orientation Not on file documented as of this encounter Nursing Notes * Janet Naranjo - 05/23/2024 1:13 PM CST Surgery scheduled at [facility] on 06/30/24 Laparoscopic salpingectomy. Pre-op and post-op scheduled. Brochure mailed. Janet Naranjo [employer] documented in this encounter Plan of Treatment Scheduled Procedures Name Priority Associated Diagnoses Date/Ti me LAPAROSCOPIC SALPINGECTOMY Sterilization consult documented as of this encounter Visit Diagnoses Not on filedocumented in this encounter Care Teams Imaging Scheduler Relationship Specialty Start Date End Date No Primary/Referring, Phy PCP - General 06/29/23 documented as of this encounter
--- OUTSIDE RECORDS SUMMARY | 2024-06-28 11:20 | XMS_ITS | Encounter Summary ---
Author Organization [employer] Address [address], [place] [address] Care Team Providers Care Diamond Setter Apprentice Name Role Phone No Primary/Referring, Phy Primary Care Provider Unavailable Reason for Visit * Reason Comments Follow-up Encounter Details Date Type Department Care Team (Late st Contact Info) Description 06/09/2024 Telephone [facility] Obstetrics and Gynecology [address] [place] [id number] Summer Cota, [facility] [address] [place] [address] Follow-up Social History Tobacco Use Types Packs/Day Years Used Date Smoking Tobacco: Never Smokeless Tobacco: Never Alcohol Use Standard Drinks/Week Comments Not Currently 0 (1 standard drink = 0.6 oz pur e alcohol) [facility] Utilities Answer Date Recorded In the past 12 months has [employer], gas, oil, or water [employer] threatened to shut off services in your [...] any time in the past 12 m [facility], were you homeless or living in a assisted (including now)? No 05/19/2024 Depression Answer Date [...] No further HB f/u indicated. PATRICA Hernandez, [employer] [facility] Inventory Taker [employer]Y RETARDED TEACHER documented in this encounter Plan of Treatment Scheduled Procedures Name Priority Associated Diagnoses Date/Ti me LAPAROSCOPIC SALPINGECTOMY Sterilization consult documented as of this encounter Visit Diagnoses Not on filedocumented in this encounter Care Teams Diamond Setter Apprentice Relationship Specialty Start Date End Date No Primary/Referring, Phy PCP - General 06/29/23 documented as of this encounter
--- OUTSIDE RECORDS SUMMARY | 2024-06-28 11:20 | XMS_ITS | Encounter Summary ---
Author Organization [facility] Address [address], [place] [address] Care Team Providers Care Mail Weigher Name Role Phone No Primary/Referring, Phy Primary Care Provider Unavailable Reason for Referral * Consult/Transfer Care (Routine) - New Request Specialty Diagnoses / Procedures Referred By Kimberly turner Referred To Contact Diagnoses Preeclampsia in period Jeferson Casiano MD [address] [place] [phone] Referral ID Status Reason Start Date Expiration Date V isits Requested Visits Authorized [id number] New Request 05/20/2024 08/19/2025 1 1 Scheduling Instructions Your clinician [email or web address]. You can quickly schedule your appointment by signing in to your online account at [email or web address] or through the text message you may have received. You can also make an appointment by calling [phone]. We also suggest you call your health insurance provider about your benefits and coverage for this appointment. Question Answer Appointment Urgency? Within 1 Week (Urgent) Reason for Visit? NG WORKER * Procedure/Equipment (Routine) - Incomplete Specialty Diagnoses / Procedures Referred By Kimberly t Referred To Contact Diagnoses Preeclampsia in period Procedures Blood Pressure Kit Jeferson Casiano MD [address] [place] [phone] Referral ID Status Reason Start Date Expiration Date V isits Requested Visits Authorized [id number] Incomplete 05/20/2024 08/19/2025 1 1 NG WORKER * Procedure/Equipment (Routine) - Incomplete Specialty Diagnoses / Procedures Referred By Contac t Referred To Contact Procedures CT Abd Pelvis WO IV Cont CT Abd Pelvis W IV Cont Sunita Serra PA-C [address] [place] [phone] Referral ID Status Reason Start Date Expiration Date V isits Requested Visits Authorized [id number] Incomplete 05/18/2024 08/17/2025 1 1 NG WORKER Reason for Visit * Reason Comments Abdominal [...] Expiration Date Visits Re quested Visits Authorized [id number] 1 1 Encounter Details Date Type Department Care Team (Late st Contact Info) Description 05/18/2024 4:13 PM CASING WORKER - 05/21/2024 2:32 PM CASING WORKER Hospital Encounter [facility] SE[address] [place] [id number] Babita Jarquin MD [address] [place] [phone] Ana Laura Sutton MD [address] [place] [phone] Jeferson Casiano MD [address] [place] [phone] Preeclampsia in period (Primary Dx); Abdominal pain, left lower quadrant; Hypertension, unspecified type (HRC) Discharge Disposition: Home Social History Tobacco Use Types Packs/Day Years Used Date Smoking Tobacco: Never Smokeless Tobacco: Never Alcohol Use Standard Drinks/Week Comments Not Currently 0 (1 standard drink = 0.6 oz pur e alcohol) [facility] Utilities Answer Date Recorded In the past [...] Comments Blood Pressure 112/80 05/21/2024 10:50 AM CASING WORKER Pulse 104 05/21/2024 10:50 AM CASING WORKER Temperature 37.4 C (99.3 F) 05/21/2024 8:15 AM CASING WORKER Respiratory Rate 16 05/21/2024 8:15 AM CASING WORKER Oxygen Saturation 100% 05/21/2024 8:15 AM CASING WORKER Inhaled Oxygen Concentration - - Weight 53.3 kg (117 lb 6.4 oz) 05/18/2024 8:33 P M CASING WORKER Height 149.9 cm (4' 11) 05/18/2024 11:34 PM CASING WORKER Body Mass Index 23.71 05/18/2024 8:33 PM CASING WORKER documented in this encounter Discharge Summaries * Nova Griffiths MD - 05/21/2024 7:12 AM CST [facility] Discharge Summary Karyn Moreno Age: 28 [...] sustained severe range pressures requiring immediate acting [id number]. HELLP labs wnl, UPC 0.08. She was [...] in good condition Kirk Byrd D.O. MHandy [facility] PILLOWCASE CUTTER PGY-3 05/21/24 3:03 PM OB STAFF: I saw and evaluate the patient on the day of discharge and agree with the above documentation and plan. Headache that patient reported this AM improved. BP remained in normal range on current regimen. Stable for discharge home. Return precautions reviewed. Plan for short interval follow up. Nova Griffiths MD NG WORKER documented in this encounter Discharge Instructions * Discharge Instr - Other Orders* Latanya Brock - 05/21/2024 7:39 AM CASING WORKER Scheduled Future Appointments Please cancel any remaining appointments. Home Medications Finish your supply of vitamins and iron. Continue vitamins while nursing. If you are breast feeding, you should check with your doctor before taking any other medication. NG WORKER documented in this encounter Medications at Time [...] Home today Kirk Byrd D.O. MRinARin [facility] PILLOWCASE CUTTER PGY-3 05/21/24 10:55 AM OB STAFF: I [...] discharge home later today. Nova Griffiths MD NG WORKER * Renita Aranda MD - 05/20/2024 7:53 [...] magnesium and off therapy - Antihypertensives: no RIGGING WORKER meds; IV antihypertensives PRN for sustained severe range blood pressures (SBP>160, DBP>110 sustained over 15 minutes) - Labs: HELLP labs nl, UPC 0.08 - Daily weights, strict I&Os - S/p 24hr magnesium - will discharge with 7D x HCTZ # - Routine cares Kirk Byrd D.O., M.A. [facility] PILLOWCASE CUTTER PGY-3 05/20/24 7:52 AM Agree with progress note as written. 28 y.o. who is PPD#9 s/p now with pre-eclampsia with SF, starting Nifedipine- continue to closely monitor. Anticipate DC later today. Renita Aranda MD NG WORKER * Gretchen Oliver DO - 05/19/2024 5:07 [...] Obstetrics and Gynecology, PGY-1 05/19/24 5:13 PM NG WORKER * Gretchen Oliver DO - 05/19/2024 1:10 [...] IR nifed 10 mg - Antihypertensives: no RIGGING WORKER meds; IV antihypertensives PRN for sustained severe range blood pressures (SBP>160, DBP>110 sustained over 15 minutes) - Labs: HELLP labs, UPC 0.08 - Daily weights, strict I&Os - D/c Mg due to clinical concern for toxicity. Mg level pending. - Will consider adding nifedipine extended release if she continues to have high mild range blood pressures # - Routine cares Gretchen Oliver DO, MPH Obstetrics and Gynecology, PGY-1 05/19/24 1:14 PM NG WORKER * Manuela Lacy MD - 05/19/2024 6:37 [...] IR nifed 10 mg - Antihypertensives: no RIGGING WORKER meds; IV antihypertensives PRN for sustained severe [...] # - Routine cares Brittney Marshall MD PILLOWCASE CUTTER PGY-1 05/19/2024 8:37 AM Staff Note: I saw and evaluated Karyn Moreno. I agree with Dr. Marshall's findings and plan of care as documented in the Resident's note. Manuela Lacy MD Date of Service: 05/19/2024 NG WORKER * Brittney Marshall MD - 05/19/2024 2:41 [...] the 24 hours ending 05/19/24 0241 A/P: Kayrn Moreno is a 28 y.o. PPD#7 s/p [...] IR nifed 10 mg - Antihypertensives: no RIGGING WORKER meds; IV antihypertensives PRN for sustained severe [...] # - Routine cares Brittney Marshall MD PILLOWCASE CUTTER PGY-1 05/19/2024 2:41 AM NG WORKER documented in this encounter OR Notes * H&P - Kailey Wall MD - 05/18/2024 8:43 PM CST [facility] Labor & Delivery History and Physical [...] Color Yellow Urine Clarity Clear Clear Specific [place], Urine 1.028 <1.030 PH Urine 5.5 5.0 [...] IR nifed 10 mg - Antihypertensives: no RIGGING WORKER meds; IV antihypertensives PRN for sustained severe [...] Discussed with Dr. Wall. Michelle Zapien MD record keeper PGY-4 05/18/2024 8:44 PM Date of Service: [...] the note dated 05/18/2024.?? Kailey Wall MD NG WORKER documented in this encounter ED Notes * Rosmery Anderson RN - 05/18/2024 7:57 PM CST Patient transported to L&D intake via w/c accompanied by ERT. Report called to L&D RN. NG WORKER * Shayy Hines RN - 05/18/2024 4:37 PM CST Patient to CT. Patient is lactating, does not have a pump. Pump borrowed from L&D will need to be returned when patient discharges. NG WORKER * Sunita Serra PA-C - 05/18/2024 4:[address] [facility] Emergency Medicine Visit Note Chief Complaint: Abdominal [...] visit, and supervised patient care with the line ordering clinician. MDM: unilateral headache. Walking without difficulty. Intermittent [...] Hypertension, unspecified type (HRC) Preeclampsia in period NG WORKER documented in this encounter Plan of Treatment Scheduled Procedures Name Priority Associated Diagnoses Date/Ti me LAPAROSCOPIC SALPINGECTOMY Sterilization consult Scheduled Referrals Name Type Priority Associated Diagnoses Orde r Schedule Clinic Referral Referral Routine Preeclampsia in period Ordered: 05/20/2024 documented as of this encounter Procedures Procedure Name Priority Date/Time Associated Diagnosis Comments GLUCOSE, WHOLE BLOOD POCT Routine 05/21/2024 5:15 AM CASING WORKER MAGNESIUM STAT 05/19/2024 1:[address] ABD PELVIS WO IV CONT STAT 05/18/2024 4:39 PM CASING WORKER LIVER PANEL(HEPATIC FUNCTION PANEL) Add-On 05/18/2024 1:49 PM CASING WORKER BASIC METABOLIC PANEL STAT 05/18/2024 1:49 PM CASING WORKER COMPLETE BLOOD COUNT-NO DIFF STAT 05/18/2024 1:49 PM CASING WORKER UA CONDITIONAL UC STAT 05/18/2024 1:3 7 PM CASING WORKER TP/CREA RATIO, URINE Add-On 05/18/2024 1:37 PM CASING WORKER documented in this encounter Results * Glucose, Whole Blood POCT (05/21/2024 5:15 AM CASING WORKER) Glucose, Whole Blood 88 70 - 180 mg/dL 05/21/2024 5:17 AM CASING WORKER [facility] Performing Location RCLab SE2 05/21/2024 5:17 AM CASING WORKER [facility] Blood 05/21/2024 5:15 AM CASING WORKER 05/21/2024 5:17 AM CASING WORKER Jeferson Casiano MD LAB_[address] [place] [address], [facility] * (ABNORMAL) Magnesium (05/19/2024 1:18 PM CASING WORKER) Magnesium 7.4(HH) 1.6 - 2.6 mg/dL 05/19/2024 1:48 PM CASING WORKER [facility] Blood Venipuncture / Unknown 05/19/2024 1:18 PM CASING WORKER 05/19/2024 1:22 PM CASING WORKER Jeferson Casiano MD LAB_1 Performing Organization Address City/State/[facility] Co de Phone Number [facility] [address] [place] [address], [facility] * CT Abd Pelvis WO IV Cont (05/18/2024 4:39 PM CASING WORKER) Anatomical Region Laterality Modality Abdomen, Pelvis Computed Tomogra phy 05/18/2024 4:39 PM CASING WORKER Narrative 05/18/2024 6:28 PM CASING WORKER EXAM: CT ABD PELVIS WO IV CONT LOCATION: [facility] DATE: 05/18/2024 INDICATION: Left lower quadrant [...] CT ABD PELVIS WO IV CONT LOCATION: [facility] DATE: 05/18/2024 INDICATION: Left lower quadrant [...] Liver Panel(Hepatic Function Panel) (05/18/2024 1:49 PM CASING WORKER) Alkaline Phosphatase 114 40 - 150 U/L 05/18/2024 5:22 PM [facility] Bilirubin, Total 0.5 0.2 - 1.2 mg/dL 05/18/2024 5:22 PM [facility] Bilirubin, Direct 0.2 0.0 - 0.5 mg/dL 05/18/2024 5:22 PM [facility] AST (SGOT) 16 10 - 40 U/L 05/18/2024 5:22 PM [facility] ALT (SGPT) 25 <=55 U/L 05/18/2024 5:22 PM [facility] Protein, Total 8.0 6.4 - 8.3 g/dL 05/18/2024 5:22 PM [facility] Albumin 3.0(L) 3.5 - 5.0 g/dL 05/18/2024 5:22 PM [facility] Blood Venipuncture / Unknown 05/18/2024 1:49 PM CASING WORKER 05/18/2024 1:54 PM CASING WORKER Ana Laura Sutton MD LAB_1 [facility] [address] [place] [address], [facility] * Basic Metabolic Panel (05/18/2024 1:49 PM CASING WORKER) Sodium 140 136 - 145 mmol/L 05/18/2024 2:18 PM [facility] Potassium 3.5 3.5 - 5.1 mmol/L 05/18/2024 2:18 PM [facility] Chloride 106 98 - 109 mmol/L 05/18/2024 2:18 PM [facility] CO2 26 20 - 29 mmol/L 05/18/2024 2:18 PM [facility] Anion Gap 8 6 - 16 mmol/L 05/18/2024 2:18 PM [facility] Calcium 8.7 8.4 - 10.4 mg/dL 05/18/2024 2:18 PM [facility] BUN 11 7 - 26 mg/dL 05/18/2024 2:18 PM [facility] Creatinine 0.63 0.55 - 1.02 mg/dL 05/18/2024 2:18 PM [facility] Glucose 78 70 - 100 mg/dL 05/18/2024 2:18 PM [facility] Comment:The given reference range is for the fasting state. Non-fasting reference range for glucose is 70 - 180 mg/dL. GFR, Estimated >60 >60 mL/min/1.7 3m2 05/18/2024 2:18 PM [facility] Blood Venipuncture / Unknown 05/18/2024 1:49 PM CASING WORKER 05/18/2024 1:54 PM CASING WORKER Babita Jarquin MD LAB_1 [facility] [address] [place] [address], [facility] * (ABNORMAL) Complete Blood Count-No Diff (05/18/2024 1:49 PM CASING WORKER) WBC 9.5 3.5 - 10.5 x10(9)/L 05/18/2024 1:59 PM [facility] RBC 4.78 3.90 - 5.03 x10(12)/L 05/18/2024 1:59 PM [facility] Hemoglobin 10.3(L) 12.0 - 15.5 g/dL 05/18/2024 1:59 PM [facility] HCT 34.1(L) 34.9 - 44.5 % 05/18/2024 1:59 PM [facility] MCV 71.3(L) 80.0 - 100.0 fL 05/18/2024 1:59 PM [facility] MCH 21.5(L) 27.6 - 33.3 pg 05/18/2024 1:59 PM [facility] MCHC 30.2(L) 31.5 - 35.2 g/dL 05/18/2024 1:59 PM [facility] RDW 21.8(H) 11.9 - 15.5 % 05/18/2024 1:59 PM [facility] Platelets 232 150 - 450 x10(9)/L 05/18/2024 1:59 PM [facility] Automated NRBC 0 <=0 /100 WBC 05/18/2024 1:59 PM [facility] Blood Venipuncture / Unknown 05/18/2024 1:49 PM CASING WORKER 05/18/2024 1:54 PM CASING WORKER Babita Jarquin MD LAB_[address] [place] [address], [facility] * (ABNORMAL) TP/Crea Ratio, Urine (05/18/2024 1:37 PM CASING WORKER) TP/Creat Ratio, Urine Random 0.08 0.00 - 0.20 05/18/2024 5:35 PM [facility] Total Protein, Urine, Random 16(H) 0 - 14 mg/dL 05/18/2024 5:35 PM [facility] Comment:The overall interpre tation for this test is normal (the ratio is within the reference interval). Individual test components may fall outside the reference interval but still give a normal overall test result. Creatinine, Urine, Random 208 >20 mg/dL mg/dL 05/18/2024 5:35 PM [facility] Urine URINE SPECIMEN COLLECTION, CLEAN CATCH / Unknown Non-blood Collection / Unknown 05/18/2024 1:37 PM CASING WORKER 05/18/2024 1:41 PM CASING WORKER Narrative [facility] - 05/18/2024 5:35 PM CASING WORKER Low urine creatinine values coupled with low urine protein values can artifactually increase the urine protein/creatinine results. Correlate results of ratio with creatinine results. Ana Laura Sutton MD LAB_[id number] [place] [address] * (ABNORMAL) UA Conditional UC: Clean Catch (05/18/2024 1:37 PM CASING WORKER) Urine Culture Comment 05/18/2024 2:26 PM [facility] Urine Color Yellow 05/18/2024 2:26 PM [facility] Urine Clarity Clear Clear 05/18/2024 2:26 PM [facility] Specific [place], Urine 1.028 <1.030 05/18/2024 2:26 PM [facility] PH Urine 5.5 5.0 - 8.0 05/18/2024 2:26 PM [facility] Protein, Urine Qual (mg/dL) 10 Negative, 10 , 20 05/18/2024 2:26 PM [facility] Glucose Urine Qual (mg/dL) Normal (Negative) Normal (Negative), 30 , 50 05/18/2024 2:26 PM [facility] Ketones, Urine (mg/dL) Negative Negative, Trace 05/18/2024 2:26 PM [facility] Urobilinogen, Urine (EU/dL) Normal (Negative) Normal (Negative) 05/18/2024 2:26 PM [facility] Bilirubin Urine (mg/dL) Negative Negative 05/18/2024 2:26 PM [facility] Blood, Urine (mg/dL) 0.50 (Moderate)(A) Negative, 0.03 (Trace) 05/18/2024 2:26 PM [facility] Nitrite Urine Negative Negative 05/18/2024 2:26 PM [facility] Leukocyte Esterase, Urine (Marcos/uL) Negative Negative, 25 (Trace) 05/18/2024 2:26 PM [facility] Red Blood Cells 25(H) 0 - 3 /HPF 05/18/2024 2:26 PM CASING WORKER [facility] White Blood Cells 5 0 - 5 /HPF 05/18/2024 2:26 PM [facility] Squamous Epithelial Cells Occasional None Seen, Occasional, Few /HPF 05/18/2024 2:26 PM [facility] Mucus Present(A) None Seen /HPF 05/18/2024 2:26 PM CASING WORKER [facility] Source Clean Catch 05/18/2024 2:26 PM [facility] Urine URINE SPECIMEN COLLECTION, CLEAN CATCH / Unknown Non-blood Collection / Unknown 05/18/2024 1:37 PM CASING WORKER 05/18/2024 1:41 PM CASING WORKER Narrative [facility] - 05/18/2024 2:26 PM CASING WORKER The qualitative interpretive guidance provided (e.g., small, moderate, large) is intended to aid in quantitative result interpretation. It is not itself an FDA-cleared test result. Babita Jarquin MD LAB_1 Performing Organization Address City/State/[facility] Co de Phone Number [address] documented in this encounter Visit Diagnoses Diagnosis Preeclampsia in period- Primary Abdominal pain, left lower quadrant Hypertension, unspecified type (HRC) Gestational hypertension without significant proteinuria, Pre-eclampsia, Mild or unspecified pre-eclampsia, condition or complication * Plan of Care - Tara Landers RN - 05/21/2024 7:27 AM CST Problem: Hypertensive Disorders in Goal: Maternal- Stabilization Outcome: Progressing [facility] Plan of Care Note Assessment: Post Magnesium therapy for Pre E with severe features. Plan: Continue to observe/intervene/teach as needed. Subjective: Pt states only dull HIGHTOWER, declines offered pain medication. Objective: VSS, BPs 106/79 and 105/76. DTR diminished, no clonus. Pt reports sleeping well. UAL voiding independently. Care shift [phone] NG WORKER * Plan of Care - Emiliano Membreno RN - 05/20/2024 11:30 PM CST [facility] Plan of Care Note Assessment: readmit for pre-e with SF; s/p magnesium Plan: assess and intervene as needed Subjective: c/o headache; tylenol given, headache resolved Objective: up to the toilet independently, voiding adequately. Denies n/v,cp,sob, RUQ pain, vision changes. medicated per JUL. Resting between cares. No family at bedside. --- End of Report --- NG WORKER * Plan of Care - Franchesca Moser RN - 05/20/2024 12:[address] [facility] Plan of Care Note Assessment: Re admit for severe PRE -E with severe features status Plan: Will remain stable Subjective: Given nifedipine and will b e giving HCTZ. Will check again after 1430. Objective: Continue to assess and monitor. Gave an additional Procardia 30 MG at 1321. NG WORKER * Plan of Care - Magnolia Monet RN - 05/20/2024 7:[address] [facility] Plan of Care Note Assessment: day 8/post [...] wait and ask the MD this AM. NG WORKER * Plan of Care - Ebenezer Robertson RN - 05/19/2024 7:[address] [facility] Plan of Care Note Assessment: Stable Vag [...] no clonus. Ambulating and voiding; momresting comfortably. NG WORKER * Plan of Care - Sunita Hu RN - 05/19/2024 8:[address] [facility] Plan of Care Note Assessment: , readmit, [...] much better. --- End of Report --- NG WORKER * Plan of Care - Brea Crabtree RN - 05/19/2024 1:[address] [facility] Plan of Care Note Assessment: . delivered [...] bathroom assistance. Report given to oncoming RN. NG WORKER * Plan of Care - Prabha Hernandez RN - 05/18/2024 11:[address] [facility] Plan of Care Note Assessment: . severe [...] clonus present. Report given to oncchristo RN. NG WORKER * Plan of Care - Brea Crabtree RN - 05/18/2024 11:20 PM CST [facility] Nursing Transfer Note Admission Date/Time: 05/18/2024 4:13 PM Time of transfer: 2330 Room number: 2041 [facility] Total Score: 0 Valuables/belongings sent with patient?: Yes Home meds being used in hospital sent with patient?: N/A Transported by: Wheelchair General condition of patient at time of transfer: stable, magnesium maintenance infusing. Family notified of transfer: Yes Patient brought down to from triage. NG WORKER * Triage Assessment Note - Dottie Robin RN - 05/18/2024 11:32 AM CASING WORKER Chief complaint: Abdominal Pain Symptoms/background/relevant history (narrative): Pt states she has had abdominal pain since last night. Pt had a baby 05/11, pt states that was her 5th delivery and her bleeding is normal. What is most important to you about your ER visit today? Address the pain Initial falls risk factors: Mobility Location and Intervention: Triage: Non-slip commissioner of internal revenue footwear NG WORKER documented in this encounter Administered Medications Inactive Administered Medications - up to 3 most recent administrations Medication Order MAR Action Action Date Dose Rate Site acetaminophen (TYLENOL) tablet 1,000 mg 1,000 mg, Oral, ONCE, On Thu05/18/24 at 1645, For 1 dose Given 05/18/2024 4:47 PM CASING WORKER 1,000 mg acetaminophen (TYLENOL) tablet 325-650 mg [...] for pain relief. Given 05/21/2024 10:50 AM CASING WORKER 650 mg Given 05/20/2024 5:38 PM CASING WORKER 650 mg Given 05/20/2024 7:55 AM CASING WORKER 650 mg bisacodyl (DULCOLAX) rectal suppository 10 [...] 1300, Until Discontinued Given 05/21/2024 8:22 AM CASING WORKER 25 mg Given 05/20/2024 12:47 PM CASING WORKER 25 mg ibuprofen (MOTRIN) tablet 600 mg 600 mg, Oral, Q6H PRN, Pain, Starting on Thu05/18/24 at 204, Until 05/21/24 at 1632, Give acetaminophen first for mild pain then use NSAIDS if acetaminophen is not effective and pain is still mild. Acetaminophen or NSAIDs may be given WITH other pain medications as adjunct for pain relief. Given 05/21/2024 11:07 AM CASING WORKER 600 mg magnesium sulfate 20 g in [...] ALERT medication Rate/Dose Verify 05/19/2024 1:00 PM CASING WORKER 2 g/hr 50 mL/hr Rate/Dose Verify 05/19/2024 12:18 PM CASING WORKER 2 g/hr 50 mL/ hr Rate/Dose Verify 05/19/2024 11:03 AM CASING WORKER 2 g/hr 50 mL/ hr magnesium sulfate [...] ALERT medication Rate/Dose Verify 05/19/2024 9:45 PM CASING WORKER 2 g/hr 50 mL/hr Rate/Dose Verify 05/19/2024 9:00 PM CASING WORKER 2 g/hr 50 mL/h r Rate/Dose Verify 05/19/2024 8:00 PM CASING WORKER 2 g/hr 50 mL/h r magnesium sulfate [...] every four hours Started 05/18/2024 8:53 PM CASING WORKER 4 g 300 mL/hr NIFEdipine (PROCARDIA) capsule 10 mg 10 mg, Oral, ONCE, On Thu05/18/24 at 2000, For 1 dose Given 05/18/2024 7:51 PM CASING WORKER 10 mg NIFEdipine XL (PROCARDIA XL) 24 hour release tablet 30 mg 30 mg, Oral, DAILY, First dose on Thu05/20/24 at 1015, Until Discontinued, Tablet/Capsule should be swallowed whole. Given 05/20/2024 10:07 AM CASING WORKER 30 mg NIFEdipine XL (PROCARDIA XL) 24 hour release tablet 30 mg 30 mg, Oral, ONCE, On Thu05/20/24 at 1300, For 1 dose, Tablet/Capsule should be swallowed whole. Given 05/20/2024 1:21 PM CASING WORKER 30 mg NIFEdipine XL (PROCARDIA XL) 24 hour release tablet 60 mg 60 mg, Oral, DAILY, First dose (after last modification) on 05/21/24 at 0800, Until Discontinued, Tablet/Capsule should be swallowed whole. Given 05/21/2024 8:22 AM CASING WORKER 60 mg polyethylene glycol (MIRALAX) oral powder [...] until patient stools. Given 05/20/2024 7:56 AM CASING WORKER 17 g senna (SENOKOT) tablet 2 Tablet [...] until patient stools. Given 05/20/2024 7:56 AM CASING WORKER 2 Tablets Given 05/19/2024 9:15 AM CASING WORKER 2 Tablets simethicone (MYLICON) chewable tablet 80 mg 80 mg, Oral, TID PRN, Gas Pain, Starting on Thu05/18/24 at 2042, Until 05/21/24 at 1632, Gas pain or bloating. Given 05/20/2024 7:56 AM CASING WORKER 80 mg sodium chloride 0.9% infusion Intravenous, at 25 mL/hr, CONTINUOUS, Starting on Thu05/18/24 at 2045 Rate/Dose Verify 05/19/2024 1:00 PM CASING WORKER 25 mL/hr Rate/Dose Verify 05/19/2024 12:18 PM CASING WORKER 25 mL/ hr Rate/Dose Verify 05/19/2024 11:03 AM CASING WORKER 25 mL/ hr documented in this encounter Active and Recently Administered Medications Times are shown in CASING WORKER. Scheduled Medication Order 05/19/2024 05/20/2024 05/21/2024 hydroCHLOROthiazide [...] hours documented in this encounter Care Teams Mail Weigher Relationship Specialty Start Date End Date No Primary/Referring, Phy PCP - General 06/29/23 documented as of this encounter
--- OUTSIDE RECORDS SUMMARY | 2024-06-28 11:20 | XMS_ITS | Clinical Summary ---
[facility] Address [address], [place] [address] Care Team Providers Care Gas Prover Name Role Phone No Primary/Referring, Phy Primary Care Provider Unavailable Source Comments You are receiving this document as you are listed as the primary care provider,follow-up provider, or the patient has been referred to you for consultation.This is in compliance with the Medicare and[facility] EHR Incentive Program,which states Providers who transition their patient to another setting of careor provider of care or refers their patient to another provider of care shouldprovide summary care record for each transition of care or referral. [facility] Allergies Active Allergy Reactions Criticality Noted Date [...] Description 06/17/2024 Telephone Obstetrics & Gynecology at [facility] [address] [place] [phone] Nova Griffiths MD Appointment 06/09/2024 Telephone [facility] Obstetrics and Gynecology [address] [place] [phone] Summer Cota LSW Follow-up 05/23/2024 [facility] OB Ultrasound [address] [place] [address] Mychart, Generic Provider 05/23/2024 Telephone [facility] [address] [place] [address] [phone] Nova Griffiths MD Surgery Scheduling 05/18/2024 4:30 PM DIRECTOR OF SALES MARKETING Ancillary Procedure [facility] [address] [place] [address] 05/18/2024 4:13 PM DIRECTOR OF SALES MARKETING - 05/21/2024 2:32 PM DIRECTOR OF SALES MARKETING Hospital Encounter [facility] [place] [phone] Babita Jarquin MD Schick, Alexandra L, MD Gamache, Jeferson Gerber MD Preeclampsia in period (Primary Dx); Abdominal pain, left lower quadrant; Hypertension, unspecified type (HRC) Discharge Disposition: Home 05/13/2024 Prep for Surgery [facility]ECOLOGY IP SERVICE [address] [place] [phone] Justa Jara MD Sterilization consult (Primary Dx) 05/11/2024 6:05 AM DIRECTOR OF SALES MARKETING - 05/13/2024 2:30 PM DIRECTOR OF SALES MARKETING Hospital Encounter [facility] [address] [place] [phone] Nova Griffiths MD , delivered (Primary Dx) Discharge Disposition: Home 05/09/2024 Telephone [facility] Obstetrics and Gynecology [address] [place] [phone] Nadine Griffiths, VALVE AND REGULATOR REPAIRER, CNM Scheduled Induction 05/06/2024 11:33 PM [employer] SAL[employer]ETING - 05/07/2024 1:38 AM DIRECTOR OF SALES MARKETING Hospital Encounter [facility]3 OB Triage [address] [place] [phone] Renita Aranda MD Discharge Disposition: Home 04/30/2024 8:55 PM [employer] SAL[employer]ING - 05/01/2024 12:01 AM DIRECTOR OF SALES MARKETING Hospital Encounter [facility] OB Triage [address] [place] [phone] Daniella Gifford MD Back pain affecting in third trimester (Primary Dx) Discharge Disposition: Home 04/29/2024 Nurse Triage [facility] [address] [place], [place] [address] [phone] Unassigned, Provider PELVIC PAIN; Concerns 04/22/2024 9:57 PM DIRECT[employer] SALES MARKETING - 04/23/2024 2:51 AM DIRECTOR OF SALES MARKETING Hospital Encounter [facility] SE3 OB Triage [address] [place] [address] Renita Aranda MD Das, Kamalini, MD Discharge Disposition: Home 04/15/2024 12:36 PM [employer] - 04/15/2024 4:25 PM DIRECTOR OF SALES MARKETING Hospital Encounter [facility] SE3 OB Triage [address] [place] [address] Leticia Aguliera MD Back pain in (Primary Dx) Discharge Disposition: Home 04/13/2024 Telephone [facility] Obstetrics and Gynecology [address] [place] [phone] Summer Cota LSW [facility] Attempted Call 04/08/2024 1:30 PM DIRECTOR OF SALES MARKETING Lab Visit [facility] [address] [place] [phone] Supervision of high risk in third trimester 04/08/2024 11:20 AM DIRECTOR OF SALES MARKETING Routine [facility] Obstetrics and Gynecology [address] [place] [phone] Nadine Griffiths APRN, CNM SUBSEQUENT VISIT 04/08/2024 10:45 AM DIRECTOR OF SALES MARKETING Routine [facility] Maternal Medicine [address] [place] [phone] Nurse, Juancho Calderon 3 NST,(NON STRESS TEST) 04/08/2024 10:30 AM DIRECTOR OF SALES MARKETING Office Visit [facility] Maternal Medicine [address] [place] [phone] Leticia Zuniga MD affected by growth restriction (Primary Dx); Increased nuchal translucency space on ultrasound 04/08/2024 10:00 AM DIRECTOR OF SALES MARKETING Ancillary Procedure [facility] Maternal Medicine [address] [place] [address] Leida Garrido MD growth restriction antepartum 04/01/2024 11:30 AM DIRECTOR OF SALES MARKETING Routine [facility] Maternal Medicine [address] [place] [address] Nurse, Juancho [facility] 2 04/01/2024 11:15 AM DIRECTOR OF SALES MARKETING Office Visit [facility] Maternal Medicine [address] [place] [address] Beatriz Bravo MD affected by growth restriction (Primary Dx) 04/01/2024 11:00 AM DIRECTOR OF SALES MARKETING Ancillary Procedure [facility] Maternal Medicine [address] [place] [address] Leida Garrido MD growth restriction antepartum from Last 3 Months Social History Tobacco Use Types Packs/Day Years Used Date Smoking Tobacco: Never Smokeless Tobacco: Never Tobacco Cessation:Counseling Given: Not Answered Alcohol Use Standard Drinks/Week Comments Not Currently 0 (1 standard drink = 0.6 oz pur e alcohol) [facility] [employer] Answer Date Recorded In the past 12 months has [employer], gas, oil, or water Informative threatened to shut off services in your [...] any time in the past 12 m [facility], were you homeless or living in a custodial (including now)? No 05/19/2024 Depression Answer Date Recor ded Last EPDS Total Score 6 06/21/2024 Last EPDS Self Harm Result Not on file 06/21 Sex and Gender Information Value Date Recorded Sex Assigned at Not on file Gender Identity Not on file Sexual Orientation Not on file Last Filed Vital Signs Vital Sign Reading Time Taken Comments Blood Pressure 112/80 05/21/2024 10:50 AM DIRECTOR OF SALES [employer]ETING Pulse 104 05/21/2024 10:50 AM [employer] SALES [employer]ETING Temperature 37.4 C (99.3 F) 05/21/2024 8:15 AM [employer]OR OF SALES [employer]ING Respiratory Rate 16 05/21/2024 8:15 AM DIRECTOR OF SALES MARKETING Oxygen Saturation 100% 05/21/2024 8:15 AM DIRECTOR OF SALES MARKETING Inhaled Oxygen Concentration - - Weight 53.3 kg (117 lb 6.4 oz) 05/18/2024 8:33 P M DIRECT[employer] SALES [employer]ETING Height 149.9 cm (4' 11) 05/18/2024 11:34 PM [employer] SALES [employer]ETING Body Mass Index 23.71 05/18/2024 8:33 PM [employer] SALES MARKETING Plan of Treatment Scheduled Procedures Name Priority [...] WHOLE BLOOD POCT Routine 05/21/2024 5:15 AM DIRECTOR OF SALES MARKETING MAGNESIUM STAT 05/19/2024 1:18 [address] [address] ABD PELVIS WO IV CONT STAT 05/18/2024 4:39 PM [employer]OR OF SALES MARKETING LIVER PANEL(HEPATIC FUNCTION PANEL) Add-On 05/18/2024 1:49 PM [employer]OR OF SALES MARKETING BASIC METABOLIC PANEL STAT 05/18/2024 1:49 PM [employer]OR OF SALES [employer]ING COMPLETE BLOOD COUNT-NO DIFF STAT 05/18/2024 1:49 PM [employer] SALES [employer]ING TP/CREA RATIO, URINE Add-On 05/18/2024 1:37 PM [employer]OR [employer] SALES [employer]ING UA CONDITIONAL UC STAT 05/18/2024 1:3 7 PM [employer]OR OF SALES [employer]ING TRANSFUSE RED BLOOD CELL Routine 05/12/2024 12:14 PM [employer]ING HEMOGLOBIN, BLOOD Routine 05/12/2024 7:4 3 AM [employer] SALES [employer]ING GLUCOSE, WHOLE BLOOD POCT Routine 05/11/2024 9:31 AM [employer]OR [employer] SALES [employer]ING PREP RBC LR Routine 05/11/2024 9:18 AM [employer] SALES [employer]ETING SYPHILIS PANEL (WITH REFLEX) STAT 05/11/2024 6:42 AM [employer]OR OF SALES MARKETING SYPHILIS PANEL (WITH REFLEX) STAT 05/11/2024 6:42 AM [employer] OF SALES MARKETING ANTIBODY SCREEN STAT 05/11/2024 6:42 AM [employer] SALES [employer]ING BLOOD TYPE STAT 05/11/2024 6:42 AM [employer] SALES [employer]ING COMPLETE BLOOD COUNT-NO DIFF STAT 05/11/2024 6:42 AM DIRECTOR OF SALES MARKETING TYPE AND SCREEN STAT 05/11/2024 6:42 AM [employer]OR [employer] SALES [employer]ING POC US OB 2ND/3RD TRIMESTER Routine 05/11/2024 6:25 AM DIRECTOR OF SALES MARKETING UA CONDITIONAL UC Routine 04/30/2024 11: 38 PM DIRECTOR OF SALES MARKETING CHLAMYDIA & GC (14 YEARS & OLDER) Routine 04/22/2024 11:51 PM DIRECTOR OF SALES MARKETING VAGINITIS PANEL STAT 04/22/2024 11:51 PM DIRECTOR OF SALES MARKETING GROUP B STREP SCREEN (OB PTS) STAT 04/22/2024 11:21 PM DIRECTOR OF SALES MARKETING UA CONDITIONAL UC STAT 04/22/2024 11: 21 PM DIRECTOR OF SALES MARKETING UA CONDITIONAL UC STAT 04/15/2024 1:0 4 PM [employer]OR OF SALES [employer]ETING HEPATITIS B CORE,AB Routine 04/08/2024 1 1:56 AM DIRECTOR OF SALES MARKETING Supervision of high risk in third trimester HEPATITIS B SURFACE ANTIBODY Routine 04/08/2024 11:56 AM DIRECTOR OF SALES MARKETING Supervision of high risk in third trimester HBSAG (HEPATITIS B SURFACE AG) Routine 04/08/2024 11:56 AM DIRECTOR OF SALES MARKETING Supervision of high risk in third trimester SYPHILIS PANEL (WITH REFLEX) Routine 04/08/2024 11:56 AM DIRECTOR OF SALES MARKETING Supervision of high risk in third trimester RBC AND PLATELET MORPHOLOGY Routine 04/08/2024 11:56 AM DIRECTOR OF SALES MARKETING Supervision of high risk in third trimester SYPHILIS PANEL (WITH REFLEX) Routine 04/08/2024 11:56 AM DIRECTOR OF SALES MARKETING Supervision of high risk in third trimester PLATELETS Routine 04/08/2024 11:56 AM DIRECTOR OF SALES MARKETING Supervision of high risk in third trimester HEMOGLOBIN, BLOOD Routine 04/08/2024 11: 56 AM [employer] OF SALES MARKETING Supervision of high risk in third trimester GLUCOSE Routine 04/08/2024 11:56 AM [employer] SALES [employer]ING Supervision of high risk in third trimester HGB A1C Routine 04/08/2024 11:56 AM DIRECTOR OF SALES MARKETING Supervision of high risk in third trimester [facility] US OB FOLLOW-UP GROWTH Routine 04/08/2024 10:35 AM DIRECTOR OF SALES MARKETING growth restriction antepartum [facility] US OB BPP Routine 04/01/2024 11:38 AM DIRECTOR OF SALES MARKETING growth restriction antepartum PAP TEST Routine 10/02/2023 [...] Glucose, Whole Blood POCT (05/21/2024 5:15 AM DIRECTOR OF SALES MARKETING) Only the most recent of2 resultswithin the time period is included. Glucose, Whole Blood 88 70 - 180 mg/dL 05/21/2024 5:17 AM DIRECTOR OF SALES MARKETING [facility] Performing Location [facility] SE2 05/21/2024 5:17 AM DIRECTOR OF SALES MARKETING [facility] Blood 05/21/2024 5:15 AM DIRECTOR OF SALES MARKETING 05/21/2024 5:17 AM DIRECTOR OF SALES MARKETING Jeferson Casiano MD LAB_1 Performing Organization Address [facility] Co de Phone Number [address] * (ABNORMAL) Magnesium (05/19/2024 1:18 PM DIRECTOR OF SALES MARKETING) Magnesium 7.4(HH) 1.6 - 2.6 mg/dL 05/19/2024 1:48 PM DIRECTOR OF SALES MARKETING [facility] Blood Venipuncture / Unknown 05/19/2024 1:18 PM [employer] SALES [employer]ETING 05/19/2024 1:22 PM DIRECTOR OF SALES MARKETING Jeferson Casiano MD LAB_1 Performing Organization Address [facility] de Phone Number [address] * CT Abd Pelvis WO IV Cont (05/18/2024 4:39 PM DIRECTOR OF SALES MARKETING) Anatomical Region Laterality Modality Abdomen, Pelvis Computed Tomogra phy 05/18/2024 4:39 PM DIRECTOR OF SALES MARKETING Narrative 05/18/2024 6:28 PM DIRECTOR OF SALES MARKETING EXAM: CT ABD PELVIS WO IV CONT LOCATION: [facility] DATE: 05/18/2024 INDICATION: Left lower quadrant abdominal [...] CT ABD PELVIS WO IV CONT LOCATION: [facility] DATE: 05/18/2024 INDICATION: Left lower quadrant [...] Liver Panel(Hepatic Function Panel) (05/18/2024 1:49 PM DIRECTOR OF SALES MARKETING) Alkaline Phosphatase 114 40 - 150 U/L 05/18/2024 5:22 PM DIRECTOR OF SALES MARKETING [facility] Bilirubin, Total 0.5 0.2 - 1.2 mg/dL 05/18/2024 5:22 PM DIRECTOR OF SALES MARKETING [facility] Bilirubin, Direct 0.2 0.0 - 0.5 mg/dL 05/18/2024 5:22 PM DIRECTOR OF SALES MARKETING [facility] AST (SGOT) 16 10 - 40 U/L 05/18/2024 5:22 PM [facility] ALT (SGPT) 25 <=55 U/L 05/18/2024 5:22 PM [facility] Protein, Total 8.0 6.4 - 8.3 g/dL 05/18/2024 5:22 PM [facility] Albumin 3.0(L) 3.5 - 5.0 g/dL 05/18/2024 5:22 PM [facility] Blood Venipuncture / Unknown 05/18/2024 1:49 PM [employer] SAL[employer]ING 05/18/2024 1:54 PM DIRECTOR OF SALES MARKETING Ana Laura Sutton MD LAB_[address] [address], [facility] * Basic Metabolic Panel (05/18/2024 1:49 PM DIRECTOR OF SALES MARKETING) Sodium 140 136 - 145 mmol/L 05/18/2024 2:18 PM [facility] Potassium 3.5 3.5 - 5.1 mmol/L 05/18/2024 2:18 PM [facility] Chloride 106 98 - 109 mmol/L 05/18/2024 2:18 PM [facility] CO2 26 20 - 29 mmol/L 05/18/2024 2:18 PM [facility] Anion Gap 8 6 - 16 mmol/L 05/18/2024 2:18 PM [facility] Calcium 8.7 8.4 - 10.4 mg/dL 05/18/2024 2:18 PM [facility] BUN 11 7 - 26 mg/dL 05/18/2024 2:18 PM [facility] Creatinine 0.63 0.55 - 1.02 mg/dL 05/18/2024 2:18 PM [facility] Glucose 78 70 - 100 mg/dL 05/18/2024 2:18 PM [facility] Comment:The given reference range is for the fasting state. Non-fasting reference range for glucose is 70 - 180 mg/dL. GFR, Estimated >60 >60 mL/min/1.7 3m2 05/18/2024 2:18 PM [facility] Blood Venipuncture / Unknown 05/18/2024 1:49 PM [employer] SAL[employer]ING 05/18/2024 1:54 PM DIRECTOR OF SALES MARKETING Babita Jarquin MD LAB_1 Performing Organization Address City/[facility]/ZIP Co de Phone Number [address] * (ABNORMAL) Complete Blood Count-No Diff (05/18/2024 1:49 PM DIRECTOR [employer] SALES MARKETING) Only the most recent of2 resultswithin the time period is included. WBC 9.5 3.5 - 10.5 x10(9)/L 05/18/2024 1:59 PM [facility] RBC 4.78 3.90 - 5.03 x10(12)/L 05/18/2024 1:59 PM [facility] Hemoglobin 10.3(L) 12.0 - 15.5 g/dL 05/18/2024 1:59 PM [facility] HCT 34.1(L) 34.9 - 44.5 % 05/18/2024 1:59 PM [facility] MCV 71.3(L) 80.0 - 100.0 fL 05/18/2024 1:59 PM [facility] MCH 21.5(L) 27.6 - 33.3 pg 05/18/2024 1:59 PM [facility] MCHC 30.2(L) 31.5 - 35.2 g/dL 05/18/2024 1:59 PM [facility] RDW 21.8(H) 11.9 - 15.5 % 05/18/2024 1:59 PM [facility] Platelets 232 150 - 450 x10(9)/L 05/18/2024 1:59 PM [facility] Automated NRBC 0 <=0 /100 WBC 05/18/2024 1:59 PM [facility] Blood Venipuncture / Unknown 05/18/2024 1:49 PM [employer]ING 05/18/2024 1:54 PM DIRECTOR [employer] SALES MARKETING Babita Jarquin MD LAB_1 [address] * (ABNORMAL) UA Conditional UC: Clean Catch (05/18/2024 1:37 PM DIRECTOR [employer] SALES MARKETING) Only the most recent of4 resultswithin the time period is included. Urine Culture Comment 05/18/2024 2:26 PM [facility] Urine Color Yellow 05/18/2024 2:26 PM [facility] Urine Clarity Clear Clear 05/18/2024 2:26 PM [facility] Specific [place], Urine 1.028 <1.030 05/18/2024 2:26 PM [facility] PH Urine 5.5 5.0 - 8.0 05/18/2024 2:26 PM [facility] Protein, Urine Qual (mg/dL) 10 Negative, 10 , 20 05/18/2024 2:26 PM [facility] Glucose Urine Qual (mg/dL) Normal (Negative) Normal (Negative), 30 , 50 05/18/2024 2:26 PM [facility] Ketones, Urine (mg/dL) Negative Negative, Trace 05/18/2024 2:26 PM [facility] Urobilinogen, Urine (EU/dL) Normal (Negative) Normal (Negative) 05/18/2024 2:26 PM [facility] Bilirubin Urine (mg/dL) Negative Negative 05/18/2024 2:26 PM [facility] Blood, Urine (mg/dL) 0.50 (Moderate)(A) Negative, 0.03 (Trace) 05/18/2024 2:26 PM [facility] Nitrite Urine Negative Negative 05/18/2024 2:26 PM [facility] Leukocyte Esterase, Urine (Marcos/uL) Negative Negative, 25 (Trace) 05/18/2024 2:26 PM [facility] Red Blood Cells 25(H) 0 - 3 /HPF 05/18/2024 2:26 PM [facility] White Blood Cells 5 0 - 5 /HPF 05/18/2024 2:26 PM [facility] Squamous Epithelial Cells Occasional None Seen, Occasional, Few /HPF 05/18/2024 2:26 PM [facility] Mucus Present(A) None Seen /HPF 05/18/2024 2:26 PM [facility] Source Clean Catch 05/18/2024 2:26 PM [facility] Urine URINE SPECIMEN COLLECTION, CLEAN CATCH / Unknown Non-blood Collection / Unknown 05/18/2024 1:37 PM [employer]ING 05/18/2024 1:41 PM DIRECTOR OF SALES MARKETING [facility] - 05/18/2024 2:26 PM DIRECTOR OF SALES MARKETING The qualitative interpretive guidance provided (e.g., small, moderate, large) is intended to aid in quantitative result interpretation. It is not itself an FDA-cleared test result. Babita Jarquin MD LAB_1 Performing Organization Address [facility] de Phone Number [address] * (ABNORMAL) TP/Crea Ratio, Urine (05/18/2024 1:37 PM DIRECTOR [employer] SAL[employer]ETING) TP/Creat Ratio, Urine Random 0.08 0.00 - 0.20 05/18/2024 5:35 PM [facility] Total Protein, Urine, Random 16(H) 0 - 14 mg/dL 05/18/2024 5:35 PM [facility] Comment:The overall interpre tation for this test is normal (the ratio is within the reference interval). Individual test components may fall outside the reference interval but still give a normal overall test result. Creatinine, Urine, Random 208 >20 mg/dL mg/dL 05/18/2024 5:35 PM [facility] Urine URINE SPECIMEN COLLECTION, CLEAN CATCH / Unknown Non-blood Collection / Unknown 05/18/2024 1:37 PM [employer] 05/18/2024 1:41 PM DIRECTOR OF SALES MARKETING [facility] - 05/18/2024 5:35 PM DIRECTOR OF SALES MARKETING Low urine creatinine values coupled with low urine protein values can artifactually increase the urine protein/creatinine results. Correlate results of ratio with creatinine results. Ana Laura Sutton MD LAB_1 Performing Organization Address [facility] Co de Phone Number [address] * Transfuse Red Blood Cell (05/12/2024 2:09 PM DIRECTOR OF SALES MARKETING) Danielle Montgomery VALVE AND REGULATOR REPAIRER, CNM ET NURSING BLO OD ADMIN * (ABNORMAL) Hemoglobin - day 1 (05/12/2024 7:43 AM DIRECT[employer] SAL[employer]ING) Only the most recent of2 resultswithin the time period is included. Hemoglobin 7.8(L) 12.0 - 15.5 g/dL 05/12/2024 7:58 AM DIRECTOR OF SALES MARKETING [facility] Blood Venipuncture / Unknown 05/12/2024 7:43 AM [employer] SAL[employer]ING 05/12/2024 7:51 AM DIRECTOR OF SALES MARKETING Nova Griffiths MD LAB_1 Performing Organization Address [facility] Co de Phone Number [address] * Prep RBC: , 2 Units (05/11/2024 9:18 AM DIRECTOR OF SALES MARKETING) BLOOD PRODUCT CODE [id number] [facility] BLOOD UNIT NUMBER [id number] [facility] CROSSMATCH INTERPRETATION Compatible [facility] BLOOD DISPENSE STATUS Transfused [facility] Unit Expiration Date [facility]IT BT BARCODE 7300 [place] [facility] BLOOD BANK PRODUCT VOL ML 400 [facility] CODING SYSTEM ISBT [facility] PRODUCT RBC LR [facility] Blood 05/11/2024 9:18 AM DIRECTOR OF SALES MARKETING Nova Griffiths MD LAB_BLOOD PRODUCTS Performing Organization Address City/[facility] Co de Phone Number [facility] [address] * Antibody Screen (05/11/2024 6:42 AM DIRECTOR OF SALES MARKETING) Antibody Screen Interpretation Negative 05/11/2024 7:51 AM DIRECTOR OF SALES MARKETING [facility] Blood Venipuncture / Unknown 05/11/2024 6:42 AM [employer] SALES [employer]ETING 05/11/2024 6:53 AM DIRECTOR OF SALES MARKETING Nova Griffiths MD LAB_1 Performing Organization Address City/[facility] Co de Phone Number [facility] [address] [place] [address] * Blood Type (05/11/2024 6:42 AM DIRECTOR OF SALES MARKETING) ABO B 05/11/2024 7:44 AM DIRECTOR OF SALES MARKETING [facility] RH Positive 05/11/2024 7:44 AM DIRECTOR OF SALES MARKETING [facility] Blood Venipuncture / Unknown 05/11/2024 6:42 AM [employer] OF SALES [employer]ETING 05/11/2024 6:53 AM DIRECTOR OF SALES MARKETING Nova Griffiths MD LAB_1 [facility] [address] * Syphilis Panel, with Reflex (05/11/2024 6:42 AM DIRECT[employer] SAL[employer]ETING) Only the most recent of2 resultswithin the time period is included. Treponema Screen Interpretation Non Reactive Non Reactive 05/11/2024 3:33 PM DIRECTOR OF SALES MARKETING [facility] Syphilis Panel Comment Negative - No serological evidence of syphilis. 05/11/2024 3:33 PM DIRECTOR OF SALES MARKETING [facility] Blood Venipuncture / Unknown 05/11/2024 6:42 AM [employer] SALES [employer]ETING 05/11/2024 6:53 AM DIRECTOR OF SALES MARKETING Nova Griffiths MD LAB_1 Performing Organization Address [facility] Co de Phone Number [facility] [address] [place] [address] * Vaginitis Panel (04/22/2024 11:51 PM DIRECTOR OF SALES MARKETING) Pathologist [facility] Bacterial Vaginosis Negative Negative 04/23/2024 1:07 AM DIRECTOR OF SALES MARKETING [facility] Shae Species Not Detected Not Detected 04/23 1:07 AM DIRECTOR OF SALES MARKETING [facility] Shae glabrata/krusei Not Detected Not Detected 04/23/2024 1:07 AM DIRECTOR OF SALES MARKETING [facility] Trichomonas vaginalis Not Detected Not Detected 04/23/2024 1:07 AM DIRECTOR OF SALES MARKETING [facility] Swab STD SPECIMEN FROM VAGINA / Unknown Non-blood Collection / Unknown 04/22/2024 11:51 PM [employer] SALES [employer]ETING 04/22/2024 11:54 PM DIRECTOR OF SALES MARKETING [facility] - 04/23/2024 1:07 AM DIRECTOR OF SALES MARKETING Test performed by Real-Time PCR Kailey Wall MD LAB_1 Performing Organization Address City/[facility]/ZIP Co de Phone Number [address] * Chlamydia & GC (14 Years and Older): Vagina (04/22/2024 11:51 PM DIRECTOR OF SALES MARKETING) Chlamydia Trachomatis STD Not Detected Not Detected 04/23/2024 4:57 AM DIRECTOR OF SALES MARKETING [facility] N. gonorrhoeae STD Not Detected Not Detected 04/23/2024 4:57 AM [facility] Swab STD SPECIMEN FROM VAGINA / Unknown Non-blood Collection / Unknown 04/22/2024 11:51 PM [employer] SALES [employer]ETING 04/22/2024 11:54 PM DIRECTOR OF SALES MARKETING [facility] - 04/23/2024 4:57 AM DIRECTOR [employer] SALES MARKETING Test performed by Real-Time PCR Kailey Wall MD LAB_1 Performing Organization Address [facility]/ZIP Co de Phone Number [address] * Group B Strep Screen (OB Pts) (04/22/2024 11:21 PM DIRECTOR OF SALES MARKETING) Pathologist [facility] Group B Strep Screen No Group B Streptococcus Isolated 04/26/2024 9:56 AM [facility] Swab (Source Required) PERINEAL SWAB / Unknown Non-blood Collection / Unknown 04/22/2024 11:21 PM DIRECTOR OF SALES MARKETING 04/22/2024 11:26 PM DIRECTOR OF SALES MARKETING Kailey Wall MD LAB_1 Performing Organization Address [facility]/ZIP Co de Phone Number [address] * Morphology-RBC and Platelet (04/08/2024 11:56 AM DIRECTOR OF SALES MARKETING) Pathologist [facility] RBC Morphology Reviewed 04/08/2024 12:24 PM DIRECTOR OF SALES MARKETING [facility] Platelet Estimate Adequate Adequate 04/08/2024 12:24 PM DIRECTOR OF SALES MARKETING [facility] Blood Venipuncture / Unknown 04/08/2024 11:56 AM DIRECTOR OF SALES MARKETING 04/08/2024 11:56 AM DIRECTOR OF SALES MARKETING Nadine Griffiths APRN, CNM LAB_1 Performing Organization Address City/[facility]/ZIP Co de Phone Number [facility] [address] [place] [phone], [facility] * Hepatitis B Surface Antibody (04/08/2024 11:56 AM DIRECTOR OF SALES MARKETING) Hep B Surf Antibody Result 169.8 mIU/mL 04/08/2024 7:22 PM DIRECTOR OF SALES MARKETING [facility] Hep B Surf Antibody Interpretation Positive (Reactive) Positive (Reactive) 04/08/2024 7:22 PM DIRECTOR OF SALES MARKETING [facility] Comment:Individual is consid ered immune to HBV infection. Blood Venipuncture / Unknown 04/08/2024 11:56 AM DIRECTOR OF SALES MARKETING 04/08/2024 11:56 AM DIRECTOR OF SALES MARKETING Nadine Griffiths APRN, CNM LAB_1 Performing Organization Address City/[facility]/ZIP Co de Phone Number [facility] [address] [place] [address] * Platelets (04/08/2024 11:56 AM DIRECTOR OF SALES MARKETING) Platelets 204 150 - 450 x10(9)/L 04/08/2024 12:24 PM DIRECTOR OF SALES MARKETING [facility] Blood Venipuncture / Unknown 04/08/2024 11:56 AM DIRECTOR OF SALES MARKETING 04/08/2024 11:56 AM DIRECTOR OF SALES MARKETING Nadine Griffiths APRN, CNM LAB_1 Performing Organization Address City/[facility] Co de Phone Number [facility] [address] [place] [phone] * Hepatitis B Surface Antigen (04/08/2024 11:56 AM DIRECTOR OF SALES MARKETING) Hepatitis B Surface Antigen Negative (Non Reactive) Negative (Non Reactive) 04/08/2024 7:22 PM DIRECTOR OF SALES MARKETING [facility] Blood Venipuncture / Unknown 04/08/2024 11:56 AM DIRECTOR OF SALES MARKETING 04/08/2024 11:56 AM DIRECTOR OF SALES MARKETING Nadine Griffiths APRN, CNM LAB_1 Performing Organization Address City/[facility] Co de Phone Number [facility] [address] [place] [address] * Hepatitis B Core Antibody (04/08/2024 11:56 AM DIRECTOR OF SALES MARKETING) Pathologist [facility] Hepatitis B Core Antibody Negative (Non Reactive) Negative (Non Reactive) 04/08/2024 7:22 PM [facility] Blood Venipuncture / Unknown 04/08/2024 11:56 AM DIRECTOR OF SALES MARKETING 04/08/2024 11:56 AM DIRECTOR OF SALES MARKETING Nadine Shahrzad Tunde ERNANDEZ CNM LAB_1 Performing Organization Address [facility] de Phone Number [facility] [address] * Hgb A1C (04/08/2024 11:56 AM DIRECTOR OF SALES MARKETING) [facility] Hemoglobin A1C 5.6 <=5.6 % 04/08/2024 7:12 PM [facility] Estimated Average Glucose (Calc) 114 < 117 mg/dL 04/08/2024 7:12 PM [facility] Comment:Estimated average gl ucose (eAG) converts A1c into glucose units (mg/dL) and estimates average glucose over the past approximately 3 months. The eAG reference interval (<117 mg/dL) corresponds to an A1c of <5.7%. Blood Venipuncture / Unknown 04/08/2024 11:56 AM DIRECTOR OF SALES MARKETING 04/08/2024 11:56 AM DIRECTOR OF SALES MARKETING Nadine Griffiths APRN, CNM LAB_1 Performing Organization Address [facility] de Phone Number [facility] [address] * Glucose (04/08/2024 11:56 AM DIRECTOR OF SALES MARKETING) [facility] Glucose 72 70 - 100 mg/dL 04/08/2024 6:35 PM [facility] Comment:The given reference range is for the fasting state. Non-fasting reference range for glucose is 70 - 180 mg/dL. Hours Fasting 0.0 8 - 12 Hours 04/08/2024 6:35 PM [facility] Blood Venipuncture / Unknown 04/08/2024 11:56 AM DIRECTOR OF SALES MARKETING 04/08/2024 11:56 AM DIRECTOR OF SALES MARKETING Nadine Griffiths APRN, CNM LAB_1 [facility] [address] * MFM US OB Follow-Up Growth (04/08/2024 10:35 AM DIRECTOR OF SALES MARKETING) Anatomical Region Laterality Modality Pelvis Ultrasound Study [...] Valve Aortic Valve Impressions 04/08/2024 11:19 AM DIRECTOR OF SALES MARKETING : Intrauterine at 34w2d Presentation is cephalic EFW 1863 grams, 4 percentile AC at 6 percentile Growth parameters and estimated weight are consistent with ongoing growth restriction (FGR), but with appropriate interval growth Normal amniotic fluid The umbilical artery Doppler is normal BPP: 02/24 with reactive NST OFFICE VISIT: Indications for [facility] ultrasound and office visit are as noted [...] ultrasound and testing will be scheduled in [facility] clinic. Leticia Zuniga MD Narrative 04/08/2024 11:19 AM DIRECTOR OF SALES MARKETING Table formatting from the original result was not included. Images from the original result were not included. [facility] Maternal Medicine [address] [place] [address] Dept Dept Patient Name: Karyn Moreno Referred By: Attending: MD Leticia Cuello MD Patient Sleep Tech: Iesha Leach RDMS, DOB, Age: 2 1995, [...] MFM US OB BPP (04/01/2024 11:38 AM DIRECTOR OF SALES MARKETING) Anatomical Region Laterality Modality Pelvis Ultrasound Study [...] Valve Aortic Valve Impressions 04/01/2024 12:19 PM DIRECTOR OF SALES MARKETING S: -Intrauterine at 33w2d gestational age - [...] Beatriz Bravo MD Narrative 04/01/2024 12:19 PM DIRECTOR OF SALES MARKETING Table formatting from the original result was not included. Images from the original result were not included. [facility] Maternal Medicine [address] [place] [address] Dept Dept Patient Name: Kayrn Moreno Referred By: Attending: MD Beatriz Cuello MD Patient Sleep Tech: Iraiscristiane Carter RDMS , Age: 2 1995, [...] 11:14 AM CDT) Case Report Pap Case: [id number] Authorizing Provider: Mackenzie Pascual MD Collected: 10/02/2023 1114 Ordering Location: [facility] Obstetrics and Received: 10/02/2023 1135 Gynecology First Screen: [place] Pena, CT (ASCP) Pathologist: Cheryl Singh MD Specimen: Pap Test, Routine, Cervix/Endocerv ix 11/24/2023 10:31 AM [facility] Pap Specimen Adequacy Satisfactory for evaluation, endocervical/tr ansformation zone component absent. 11/24/2023 10:31 AM [facility] Pap Interpretation (ASC-US) Atypical squamous cells of undetermined significance.(A ) 11/24/2023 10:31 AM [facility] Pap Disclaimer The Pap test is a screening test to aid in the detection of cervical and vaginal cancers and their precursor lesions. It is not a diagnostic procedure and should not be used as the sole means of detecting malignancy. Both false-positive and false-negative results may occur. 11/24/2023 10:31 AM [facility] Gross Description The specimen is received in SurePath fixative and properly labeled. 1 Pap-stained SurePath slide is prepared. 11/24/2023 10:31 AM [facility] Embedded Images 10:31 AM [facility] Other Specimen Type ENTIRE ENDOCERVIX / Unknown 10/02/2023 11:14 AM CDT 10/02/2023 11:35 AM CDT Comment:LMP: Patient's last menstrual period was 08/12/2023 (exact date). Mackenzie Pascual MD LAB PATHOLOGY [address] [address], [facility] * HIV 1/2 Ag/Ab 4th Generation (10/02/2023 10:29 AM CDT) HIV 1/2 Antigen/Anti body (4th generation) Negative (Non Reactive) Negative (Non Reactive) 10/02/2023 1:25 PM CDT [facility] Comment:HIV-1 p24 Antigen an d HIV-1/HIV-2 Antibody not detected Blood Venipuncture / Unknown 10/02/2023 10:29 AM CDT 10/02/2023 10:29 AM CDT Mackenzie Pascual MD LAB_1 Performing Organization Address City/[facility] Co de Phone Number [facility] [address] * Hepatitis C Antibody, with Reflex (10/02/2023 10:29 AM CDT) Hepatitis C Antibody Negative (Non Reactive) Negative (Non Reactive) 10/02/2023 1:33 PM CDT [facility] Comment:Antibodies to HCV no t detected. Does not exclude the possiblity of exposure to HCV. Blood Venipuncture / Unknown 10/02/2023 10:29 AM CDT 10/02/2023 10:29 AM CDT Mackenzie Pascual MD LAB_1 Performing Organization Address [facility] Co de Phone Number [facility] [address] from Last 3 Months or Most Recently Relevant to Health Maintenance Advance Directives * Full Code (Latest Code Status on File) Date Activated Date Inactivated Comments 05/18/2024 8:43 PM 05/21/2024 4:32 PM * Full Code Date Activated Date Inactivated Comments 05/11/2024 6:23 AM 05/13/2024 4:52 PM Care Teams Gas Prover Relationship Specialty Start Date End Date No Primary/Referring, Phy PCP - General 06/29/23
--- OUTSIDE RECORDS SUMMARY | 2024-06-28 11:20 | XMS_ITS | Encounter Summary ---
Author Organization [facility] Address [address] [place] [address] Care Team Providers Care Mule Tender Name Role Phone No Primary/Referring, Phy Primary Care Provider Unavailable Reason for Visit * Reason Comments Appointment Encounter Details Date Type Department Care Team ([facility] st Contact Info) Description 06/17/2024 Telephone Obstetrics & Gynecology at [address] [phone] Nova Griffiths MD [address] [place] [address] [id number] Appointment Social History Tobacco Use Types Packs/Day Years Used Date Smoking Tobacco: Never Smokeless Tobacco: Never Alcohol Use Standard Drinks/Week Comments Not Currently 0 (1 standard drink = 0.6 oz pur e alcohol) [facility] Utilities Answer Date Recorded In the past 12 months has [facility] [employer], gas, oil, or water [employer] threatened to shut off services in your [...] any time in the past 12 m [facility], were you homeless or living in a usp (including now)? No 05/19/2024 Depression Answer Date [...] CST Unable to reach pt. OPS sent. FINISHER * Janae Hawkins - 06/17/2024 11:29 AM CST Images from the original note were not included. Message left for patient to return my call. FINISHER documented in this encounter Plan of Treatment Scheduled Procedures Name Priority Associated Diagnoses Date/Ti me LAPAROSCOPIC SALPINGECTOMY Sterilization consult documented as of this encounter Visit Diagnoses Not on filedocumented in this encounter Care Teams Mule Tender Relationship Specialty Start Date End Date No Primary/Referring, Phy PCP - General 06/29/23 documented as of this encounter
== END 2024-06-28 11:23 | disposition home or self-care (01) ==
LOC: ED 11:17
PROVIDERS: Emergency Provider Emergency Medicine Emergency Medical Services
DX: R51.9 Headache, unspecified (principal); K08.89 Other specified disorders of teeth and supporting structures
CPT/HCPCS: 99284

== ENCOUNTER 2024-10-21 07:35 | Day surgery (SDC) | payer MEDICAID, SELFPAY ==
[2024-10-21] VITALS (15 sets, daily range): BP systolic 120–147; BP diastolic 61–88; PULSE 65–88; RESP 14–18; TEMP 36.2–36.6; O2SAT 98–100; BMI 23.0
[2024-10-21] MEDS: LACTATED RINGERS 1000 ML 1,000 ML 100 ML IV (07:45)
[2024-10-21 08:28] LABS: Hemoglobin* 10.8 gm/dL (12.0-16.0)
[2024-10-21 08:32] LABS: Ur HCG Qualitative* Negative (Negative)
[2024-10-21] MEDS: SODIUM CHLORIDE 0.9 % (FLUSH) 10 ML SYRINGE IVF (08:33)
[2024-10-21 08:44] LABS: Creatinine* 0.7 mg/dL (0.5-1.5); Est. Creatinine Clearance* 95.91; Estimated Glomerular Filt Rate 119 ml/min
--- NOTE | 2024-10-21 09:38 | W.PM.H&PU ---
History & Physical Update History & Physical Update H&P Reviewed and patient assessed: No changes noted H&P Updates: Karyn is seen in pre-op prior to scheduled laparoscopic bilateral salpingectomy. No interval change to her health history. We reviewed the risks and benefits of surgery, including permanent sterilization, bleeding, infection, damage to surrounding structures. Written consent re-initiated, federal sterilization consent signed >30 days ago. Reviewed post-op restrictions and return precautions. Pre-op labs reviewed and are within normal limits. No perioperative antibiotics.
--- NOTE | 2024-10-21 10:25 | P.ANES_ITS ---
Anesthesia Charges Start Date/Time Anesthesia Start Date: 10/21/24 Anesthesia Start Time: 09:34 Stop Date/Time Anesthesia Stop Date: 10/21/24 Anesthesia Stop Time: 11:06 Coding CPT Codes CPT Codes: ANESTH SURG LOWER ABDOMEN - 59690 ([id number]) P1 - NORMAL HEALTHY PATIENT, QK - CONSTRUCTION AREA MANAGER 2-4 CNCRNT ANES PROC, QX - PIPE BUFFER SVTigist W/ MED DIRECTION
--- NOTE | 2024-10-21 10:25 | W.ANESCHARGE ---
Anesthesia Charges Start Date/Time Anesthesia Start Date: 10/21/24 Anesthesia Start Time: 09:34 Stop Date/Time Anesthesia Stop Date: 10/21/24 Anesthesia Stop Time: 11:06 Coding CPT Codes CPT Codes: ANESTH SURG LOWER ABDOMEN - 29649 ([id number]) P1 - NORMAL HEALTHY PATIENT, QK - HOST 2-4 CNCRNT ANES PROC, QX - MINE DEPUTY SVTigist W/ MED DIRECTION
[2024-10-21] MEDS: BUPIVACAINE 0.25 %/EPI 1:200K 30 ml 10 ML INJECTION (10:38)
[2024-10-21] MEDS: SILVER NITRATE APPLICATOR 1 EACH STICK..EA. TOPICAL (10:49)
--- NOTE | 2024-10-21 11:08 | P.ANES_ITS ---
Anesthesia Charges Start Date/Time Anesthesia Start Date: 10/21/24 Anesthesia Start Time: 09:34 Stop Date/Time Anesthesia Stop Date: 10/21/24 Anesthesia Stop Time: 11:06 Coding CPT Codes CPT Codes: ANESTH SURG LOWER ABDOMEN - 81855 ([id number]) P1 - NORMAL HEALTHY PATIENT, QK - FOOD AND BEVERAGE OUTLETS MANAGER 2-4 CNCRNT ANES PROC
--- NOTE | 2024-10-21 11:08 | W.ANESCHARGE ---
Anesthesia Charges Start Date/Time Anesthesia Start Date: 10/21/24 Anesthesia Start Time: 09:34 Stop Date/Time Anesthesia Stop Date: 10/21/24 Anesthesia Stop Time: 11:06 Coding CPT Codes CPT Codes: ANESTH SURG LOWER ABDOMEN - 02268 ([id number]) P1 - NORMAL HEALTHY PATIENT, QK - SURGICAL PRODUCT SALES CONSULTANT 2-4 CNCRNT ANES PROC
--- NOTE | 2024-10-21 11:10 | W.PM.GYNPROC ---
Procedure Note Time Seen by Provider: 11:16 Will [facility] bill your pro fee for this procedure?: Yes Pre-op diagnosis: Undesired fertility Procedure: Laparoscopic bilateral salpingectomy Anesthesia: GETA Complications: None Surgeon: Maurizio Landrum MD Estimated blood loss (mL): 5 IV fluids (mL): 400 Urine Output (mL): 100 Pathology: specimen obtained, sent to pathology Condition: stable Disposition: same day Findings: Normal uterus, bilateral fallopian tubes and ovaries Procedure Description: Patient was taken to the operating room with IV running. She was positioned in dorsal lithotomy position with her legs fully supported in Yellowfin stirrups. General anesthesia was administered. She was prepped and draped in the usual sterile fashion. A surgical time out was held to confirm patient and procedure. Newman catheter was inserted. Speculum inserted, cervix appears unremarkable. A tenaculum was applied on the anterior cervical lip, Hulka retractor inserted without difficulty for uterine manipulation. Attention was then turned to the abdomen. A 12 mm infraumbilical incision was made with a scalpel and carried down to the underlying layer of fascia with the hemostat. The fascia was grasped with Suad clamps and elevated, fascial incision made with scalpel. A curved hemostat was utilized to enter peritoneum and gently stretch fascial incision. The fascia was tagged with 0 vicryl and straights removed. Zheng trocar was introduced to the peritoneal cavity, balloon inflated. 5 mm camera inserted and high flow initiated. Pneumoperitoneum was achieved, where careful attention was paid below site of entry - no injury or bleeding noted. Upper abdominal survey was completed, revealing normal anatomy. Patient was put into Trendelenburg, pelvic survey noted normal uterus, bilateral fallopian tubes and ovaries. Two additional port sites were created, first in the right lower quadrant 2cm superior and medial to the ASIS. 5mm skin incision was made and trocar advanced under direct visualization with rotation and gentle pressure. Careful attention was paid to avoid the inferior epigastric vessels, superficial skin vasculature and the bowel on entry. Obturator removed, balloon inflated. The same procedure was completed on the left. Of note, the left Yellofin became malpositioned where the bracket met the OR table shortly after case start. This was immediately recognized and re-adjusted before proceeding with surgery. Attention was first turned to the right fallopian tube, which was sequentially ligated and transected from the mesosalpinx using the Ligasure cautery device. We proceeded from the fimbriated end, lateral to medial, and the tube was amputated at the right uterine cornua. Specimen was temporarily placed in the anterior cul de sac. The same procedure was repeated on the patient's left side, and the left fallopian tube was also amputated at the cornua and removed from the patient's abdomen. The right fallopian tube was retrieved from the anterior cul de sac and removed. Both fallopian tubes were sent for pathologic evaluation. Survey of the pelvis revealed excellent hemostasis. Procedure was deemed complete. The balloons of all port sites were deflated, and all ports were removed after pneumoperitoneum was released. The fascia was closed in a running fashion with 0 Vicryl. Fascial tags were tied together. Local anesthetic (Marcaine) was infiltrated in the subcutaneous tissue at each port site, total 10cc. The skin of each port site was closed in a subcuticular fashion with 3-0 Monocryl. Surgical glue was applied above this. Speculum was reinserted, Hulka uterine manipulator was removed. Hemostasis was achieved with pressure and silver nitrate on the cervix. Newman catheter removed. Patient tolerated procedure well and was taken to recovery area in stable condition. EBL 5 mL, UOP 100 mL, IVF 400 mL. Confirmed specimens sent to pathology.
[2024-10-21] MEDS: fentaNYL 100 MCG/2 ML inj 50 MCG IVP ×2 (11:17→11:24)
[2024-10-21] MEDS: ACETAMINOPHEN 500 MG TABLET 1000 MG PO (13:00)
== END 2024-10-21 13:00 | disposition home or self-care (01) ==
LOC: OR 07:38
PROVIDERS: PCP Registered Nurse; Visit Provider Obstetrics & Gynecology
PROC: (CPT 58661; principal; 2024-10-21 08:45)
DX: Z30.2 Encounter for sterilization (principal)
CPT/HCPCS: 58661; 00840; 36415; 81025; 82565; 85018; 86850; 86900; 86901; 88302; A9270; J0330; J1100; J1885; J2250; J2405; J2704; J3010; J3490; J7120